=== PATIENT | male | born 1950 | race Caucasian/White ===

== ENCOUNTER 2017-03-10 12:28 | Day surgery (SDC) | payer MEDICARE, OTHER ==
[2017-03-03 10:23] LABS: HEMATOCRIT 36.7 % (37.9-51.0); HEMOGLOBIN 12.1 g/dL (13.5-17.0); HGB HCT DIFFERENCE -0.4; MEAN CORPUSCULAR HEMOGLOBIN 25.9 pg (27.0-33.4); MEAN CORPUSCULAR HGB CONC 32.9 g/dL (32.0-36.0); MEAN CORPUSCULAR VOLUME 79 fl (80-97); RED BLOOD COUNT 4.67 10^6/uL (4.35-5.55)
[2017-03-03 10:39] LABS: ANION GAP 12 (5-19); BLOOD UREA NITROGEN 14 mg/dL (7-20); CARBON DIOXIDE 24 mmol/L (22-30); CHLORIDE 104 mmol/L (98-107); CREATININE RESULT 0.59 mg/dL (0.52-1.25); GLUCOSE 114 mg/dL (75-110); POTASSIUM 5.1 mmol/L (3.6-5.0)
--- NOTE | 2017-03-04 13:28 | EKG REPORT ---
SEVERITY:- NORMAL ECG - SINUS RHYTHM : Confirmed by: Martin Oliveira MD 04-Mar-2017 13:27:11
[~2017-03-10 12:28] MED LIST: ACETAMINOPHEN 325 MG TABLET PO PRN; BUPIVACAINE HCL 0.25 % INJ/PF (2.5 MG/1 ML) 30 ML VIAL ONE; CEFAZOLIN 2 GM/D5W RTU 2 GM/50 ML RTUPB IV PRN; LACTATED RINGERS 1000 ML IV PRN
[2017-03-10 13:20] LABS: ABSOLUTE EOSINOPHILS # (AUTO) 0.1 10^3/uL (0.0-0.6); ABSOLUTE LYMPHOCYTES (AUTO) 1.3 10^3/uL (0.5-4.7); ABSOLUTE MONOCYTES (AUTO) 0.5 10^3/uL (0.1-1.4); ABSOLUTE NEUT (AUTO) 3.1 10^3/uL (1.7-8.2); BASOPHILS % (AUTO) 0.7 % (0-2); EOSINOPHILS % (AUTO) 1.7 % (0-6); HEMATOCRIT 26.8 % (37.9-51.0); HEMOGLOBIN 8.8 g/dL (13.5-17.0); HGB HCT DIFFERENCE -0.4; LYMPHOCYTES % (AUTO) 25.7 % (13-45); MEAN CORPUSCULAR HEMOGLOBIN 26.3 pg (27.0-33.4); MEAN CORPUSCULAR HGB CONC 32.8 g/dL (32.0-36.0); MEAN CORPUSCULAR VOLUME 80 fl (80-97); MONOCYTES % (AUTO) 10.8 % (3-13); RED BLOOD COUNT 3.35 10^6/uL (4.35-5.55); RED CELL DISTRIBUTION WIDTH 16.5 % (11.5-14.0); SEGMENTED NEUTROPHILS % (AUTO) 61.1 % (42-78)
[2017-03-10] MEDS ORDERED: RINGERS SOLUTION,LACTATED 1,000 ML IV ONE (14:30)
[2017-03-10] MEDS ORDERED: FENTANYL CITRATE INJ/PF 250 MCG/5 ML AMPULE ONE (14:32)
[2017-03-10] MEDS ORDERED: ACETAMINOPHEN 0 ML IV ONE (14:32)
[2017-03-10] MEDS ORDERED: DEXMEDETOMIDINE INJ 80 MCG/20 ML VIAL IV ONE (14:32)
[2017-03-10] MEDS ORDERED: MIDAZOLAM 2 MG/2 ML INJ ONE (14:32)
[2017-03-10] MEDS ORDERED: PROPOFOL INJ 200 MG/20 ML VIAL IV ONE (14:32)
[2017-03-10] MEDS ORDERED: MORPHINE SULFATE 10 MG/ML INJ ONE (15:01)
[2017-03-10] MEDS ORDERED: DEXTROSE 50%-WATER 25 GM/50 ML DISP.SYRIN IV PRN ×2 (15:23)
[2017-03-10] MEDS ORDERED: GLUCAGON,HUMAN RECOMB 1 MG INJ SUBCUT PRN (15:23)
[2017-03-10] MEDS ORDERED: DEXTROSE 40% GEL 15 GM TUBE PO PRN ×2 (15:23)
[2017-03-10 15:28] LABS: ALANINE AMINOTRANSFERASE 151 U/L (21-72); ALBUMIN 3.2 g/dL (3.5-5.0); ALKALINE PHOSPHATASE 82 U/L (38-126); ANION GAP 9 (5-19); ASPARTATE AMINO TRANSFERASE 163 U/L (17-59); BILIRUBIN,DIRECT 0.3 mg/dL (0.0-0.4); BILIRUBIN,TOTAL 0.9 mg/dL (0.2-1.3); BLOOD UREA NITROGEN 13 mg/dL (7-20); CALCIUM 8.2 mg/dL (8.4-10.2); CARBON DIOXIDE 22 mmol/L (22-30); CHLORIDE 106 mmol/L (98-107); GLUCOSE 94 mg/dL (75-110); MAGNESIUM 1.8 mg/dL (1.6-2.3); PHOSPHORUS 3.3 mg/dL (2.5-4.5); POTASSIUM 3.9 mmol/L (3.6-5.0); TOTAL PROTEIN 6.5 g/dL (6.3-8.2)
[2017-03-10] MEDS ORDERED: MEPERIDINE HCL/PF INJ 25 MG/1 ML DISP.SYRIN IV PRN (15:37)
[2017-03-10] MEDS ORDERED: DIPHENHYDRAMINE HCL 50 MG/ML VIAL IV PRN (15:37)
[2017-03-10] MEDS ORDERED: MORPHINE SULFATE 10 MG/ML INJ IV PRN (15:37)
[2017-03-10] MEDS ORDERED: FENTANYL CITRATE INJ/PF 100 MCG/2 ML AMPUL IV PRN ×3 (15:37)
[2017-03-10] MEDS ORDERED: OXYCODONE-ACETAMINOPHEN 5-325 MG TABLET PO PRN ×2 (15:37)
[2017-03-10] MEDS ORDERED: PROMETHAZINE HCL INJ 25 MG/1 ML VIAL IV PRN ×2 (15:37)
[2017-03-10 16:14] LABS: HEMATOCRIT 24.7 % (37.9-51.0); HEMOGLOBIN 8.2 g/dL (13.5-17.0); HGB HCT DIFFERENCE -0.1; MEAN CORPUSCULAR HEMOGLOBIN 26.7 pg (27.0-33.4); MEAN CORPUSCULAR HGB CONC 33.4 g/dL (32.0-36.0); MEAN CORPUSCULAR VOLUME 80 fl (80-97); RED BLOOD COUNT 3.08 10^6/uL (4.35-5.55); RED CELL DISTRIBUTION WIDTH 16.3 % (11.5-14.0)
[2017-03-10 16:19] LABS: PARTIAL THROMBOPLASTIN TIME 30.9 SEC (23.5-35.8); PROTHROMBIN TIME 14.4 SEC (11.4-15.4)
[2017-03-10 16:35] LABS: WHITE BLOOD COUNT 2.8 10^3/uL (4.0-10.5)
[2017-03-10 16:36] LABS: ANION GAP 6 (5-19); BLOOD UREA NITROGEN 13 mg/dL (7-20); CALCIUM 8.5 mg/dL (8.4-10.2); CARBON DIOXIDE 24 mmol/L (22-30); CHLORIDE 107 mmol/L (98-107); CREATININE RESULT 0.59 mg/dL (0.52-1.25); GLUCOSE 93 mg/dL (75-110); POTASSIUM 4.1 mmol/L (3.6-5.0); SODIUM 137.1 mmol/L (137-145)
[2017-03-10] MEDS: NORMAL SALINE 1000 ML 1,000 ML IV PRN (19:43)
--- NOTE | 2017-03-10 20:47 | RADIOLOGY REPORT (SQ) ---
EXAM DESCRIPTION: CT ABD/PELVIS WITH IV ORAL COMPLETED DATE/TIME: 03/10/2017 8:13 pm REASON FOR STUDY: abdominal distension K43.9 VENTRAL HERNIA WITHOUT OBSTRUCTION OR GANGRENE K42.9 UMBILICAL HERNIA WITHOUT OBSTRUCTION OR GANGRENE Z79.899 OTHER [facility] (CURRENT) DRUG THERAPY COMPARISON: None. TECHNIQUE: CT scan of the abdomen and pelvis performed with intravenous and oral contrast using memo david scanning technique with dynamic intravenous contrast injection. Images reviewed with lung, soft t issue, and bone windows. Reconstructed coronal and sagittal MPR images reviewed. Delayed images for e valuation of the urinary system also acquired. All images stored on PACS. All CT scanners at this facility use dose modulation, iterative reconstruction, and/or weight based d osing when appropriate to reduce radiation dose to as low as reasonably achievable (ALARA). [facility]: Dose Right [facility]: CareDose [facility]: Dose Right [facility]: Teradose 4D [facility]: [employer] CONTRAST TYPE AND DOSE: 88 mL Isovue 370 RENAL FUNCTION: Creatinine 0.59 RADIATION DOSE: 32.02 mGy. LIMITATIONS: None. FINDINGS: LOWER CHEST: There is minimal airspace consolidation in the lung bases most consistent wit h atelectatic changes. Small hiatal hernia is identified. LIVER: Normal size. No masses or dilated ducts. Perihepatic ascitic fluid is identified. SPLEEN: Normal size. No focal lesions. Perisplenic ascitic fluid is identified. PANCREAS: No masses. No significant calcifications. No adjacent inflammation or peripancreatic fluid collections. Pancreatic duct not dilated. GALLBLADDER: No identified stones by CT criteria. No inflammatory changes to suggest cholecystitis. ADRENAL GLANDS: No significant masses or asymmetry. RIGHT KIDNEY AND URETER: No solid masses. No significant calcifications. No hydronephrosis or hyd roureter. LEFT KIDNEY AND URETER: No solid masses. No significant calcifications. Mild hydronephrotic molina es are identified. AORTA AND VESSELS: No aneurysm. No dissection. Renal arteries, SMA, celiac without stenosis. RETROPERITONEUM: No retroperitoneal adenopathy, hemorrhage or masses. BOWEL AND PERITONEAL CAVITY: No obstruction. No visualized masses. No inflammatory changes or thicken ing of bowel wall. Scattered pockets of ascitic fluid are identified throughout the abdomen and pelv is. APPENDIX: Not identified. PELVIS: No significant masses. Normal bladder. Pelvic ascitic fluid is identified. ABDOMINAL WALL: No masses. Small umbilical hernia is identified containing bowel without obstruction and a small amount of ascitic fluid. BONES: No significant or acute findings. OTHER: No other significant finding. IMPRESSION: Intra-abdominal and pelvic ascitic fluid as noted above. Small umbilical hernia is iden tified containing a small amount of bowel without obstruction and ascitic fluid. Mild hydronephrosis of the left kidney. Other findings as noted above TECHNICAL DOCUMENTATION: JOB ID: [id number] Quality ID # [id number]: Final reports with documentation of one or more dose reduction techniques (e.g., Au tomated exposure control, adjustment of the mA and/or kV according to patient size, use of iterative reconstruction technique) 2010 [employer]- All Rights Reserved
[2017-03-10] MEDS: LANSOPRAZOLE 30 MG TAB.RAP.DR PO SCH (21:45)
--- NOTE | 2017-03-10 21:51 | PDOC H&P ---
History of Present Illness Admission Date/PCP: DEDRICK JARAMILLO MD Patient complains of: Abdominal distention History of Present Illness: SLOANE SIMON III is a 67 year old male who was scheduled for laparoscopic umbilical and supraumbilical ventral hernia repair with mesh today for long- standing hernias. However he was noted with severe anemia of unclear etiology along with progressively worsening abdominal distention in the past several weeks. Patient denies any change of his hernias with no pain and no nausea and vomiting. He has been experiencing normal bowel movements with no signs or symptoms of gastrointestinal bleed other than isolated episode of dark stools last week. He has a family history of colon cancer with his father developing colon cancer in his 50s. Unfortunately the patient himself has never had a screening colonoscopy. He suffers from frequent episodes of heartburn that is controlled with omeprazole. He denies any dysphagia. he denies any chronic cough. He denies any weight loss. He denies any abdominal pain. Past Medical History Cardiac Medical History: Denies: Coronary Artery Disease, Myocardial Infarction, Hypertension Pulmonary Medical History: Denies: Asthma, Bronchitis, Chronic Obstructive Pulmonary Disease (COPD), Pneumonia Neurological Medical History: Denies: Seizures GI Medical History: Reports: Gastroesophageal Reflux Disease Musculoskeltal Medical History: Denies: Arthritis Hematology: Denies: Anemia Past Surgical History Past Surgical History: Reports: Other - Arm orthopedic surgery in the remote past. Social History Smoking Status: Never Smoker Drugs: None Family History Family History: Malignancy - Father with colon cancer in his 50s. Parental Family History Reviewed: Yes Children Family History Reviewed: No Sibling(s) Family History Reviewed.: Yes Medication/Allergy Home Medications: Multivitamin [Multivitamins] 1 tab PO DAILY 03/03/17 [place]-3/Dha/Epa/Fish Oil [Fish Oil 1,000 mg Softgel] 1 cap PO DAILY 03/03/17 Omeprazole 1 cap PO DAILY 03/03/17 Allergies/Adverse Reactions: No Known Allergies Allergy (Unverified 03/03/17 09:52) Physical Exam Vital Signs: Temp Pulse Resp BP Pulse Ox 98.9 F 56 L 18 112/76 99 03/10/17 17:55 03/10/17 17:55 03/10/17 17:55 03/10/17 17:55 03/10/17 17:55 Intake & Output 03/09/17 03/10/17 03/11/17 06:59 06:59 06:59 Intake Total 900 Balance 900 Weight 81 kg General appearance: PRESENT: no acute distress, cooperative Neck exam: PRESENT: other - No abnormal masses, no lymphadenopathy, nontender to palpation. Respiratory exam: PRESENT: clear to auscultation branden Cardiovascular exam: PRESENT: RRR GI/Abdominal exam: PRESENT: other - Distended but very soft and nontender to palpation with no palpable hepatosplenomegaly. Moderate sized umbilical hernia that is easily reducible as well as supraumbilical hernia that is easily reducible. Extremities exam: PRESENT: other - No swelling no tenderness. Neurological exam: PRESENT: alert, altered, awake, oriented to person, oriented to place, oriented to time, oriented to situation Psychiatric exam: PRESENT: appropriate affect Skin exam: PRESENT: normal color Results Laboratory Results: 03/10/17 16:05 03/10/17 16:05 03/10/17 03/10/17 03/10/17 13:09 13:09 14:52 WBC 5.0 RBC 3.35 L Hgb 8.8 L Hct 26.8 L MCV 80 MCH 26.3 L MCHC 32.8 RDW 16.5 H Plt Count 110 L Seg Neutrophils % 61.1 Lymphocytes % 25.7 Monocytes % 10.8 Eosinophils % 1.7 Basophils % 0.7 Absolute Neutrophils 3.1 Absolute Lymphocytes 1.3 Absolute Monocytes 0.5 Absolute Eosinophils 0.1 Absolute Basophils 0.0 Sodium 137.0 Potassium 3.9 3.9 Chloride 106 Carbon Dioxide 22 Anion Gap 9 BUN 13 Creatinine 0.60 Est GFR ( Amer) > 60 Est GFR (Non-Af Amer) > 60 Glucose 94 Calcium 8.2 L Phosphorus 3.3 Magnesium 1.8 Total Bilirubin 0.9 AST 163 H ALT 151 H Alkaline Phosphatase 82 Total Protein 6.5 Albumin 3.2 L Blood Type Antibody Screen 03/10/17 03/10/17 03/10/17 14:52 16:05 16:05 WBC 2.8 L D RBC 3.08 L Hgb 8.2 L Hct 24.7 L MCV 80 MCH 26.7 L MCHC 33.4 RDW 16.3 H Plt Count 82 L Seg Neutrophils % Lymphocytes % Monocytes % Eosinophils % Basophils % Absolute Neutrophils Absolute Lymphocytes Absolute Monocytes Absolute Eosinophils Absolute Basophils Sodium 137.1 Potassium 4.1 Chloride 107 Carbon Dioxide 24 Anion Gap 6 BUN 13 Creatinine 0.59 Est GFR ( Amer) > 60 Est GFR (Non-Af Amer) > 60 Glucose 93 Calcium 8.5 Phosphorus Magnesium Total Bilirubin AST ALT Alkaline Phosphatase Total Protein Albumin Blood Type B POSITIVE Antibody Screen NEGATIVE Impressions: Abdomen/Pelvis CT 03/10/17 00:00 IMPRESSION: Intra-abdominal and pelvic ascitic fluid as noted above. Small umbilical hernia is identified containing a small amount of bowel without obstruction and ascitic fluid. Mild hydronephrosis of the left kidney. Other findings as noted above Assessment & Plan - Diagnosis (1) Pancytopenia Is this a current diagnosis for this admission?: YesPlan: Of unclear etiology. Along with marked abdominal distention without evidence of intestinal obstruction. Will admit for evaluation. Highly suspicious for intra-abdominal malignancy. CT scan demonstrates ascites but no focus of malignancy. Will plan review of the CT scan with radiology in the morning. Will obtain hematology oncology consultation. Will do a bowel prep tomorrow with plans for EGD and colonoscopy the following day. His laparoscopic ventral hernia repair is canceled for now. Pending malignancy workup.
[2017-03-11] MEDS: NORMAL SALINE 1000 ML 1,000 ML IV PRN (01:16)
[2017-03-11] MEDS: LANSOPRAZOLE 30 MG TAB.RAP.DR PO SCH ×2 (05:31→18:10)
[2017-03-11] MEDS ORDERED: NORMAL SALINE 1000 ML 1,000 ML IV PRN (07:41)
[2017-03-11] MEDS ORDERED: PEG 3350/NA SULF,BICARB,CL/KCL 4000 ML PO ONE (09:00)
[2017-03-11] MEDS: OMEGA-3 ACID ETHYL ESTERS 1 GM CAPSULE PO SCH (09:39)
[2017-03-11 09:51] LABS: LDH 620 U/L (313-618)
[2017-03-11 10:24] LABS: CARCINOEMBRYONIC ANTIGEN 3.9 ng/mL (<3.0)
--- NOTE | 2017-03-11 11:27 | PDOC PROGRESS REPORT ---
Subjective Progress Note for:: 03/11/17 Subjective:: Feels well. No complaints. No shortness of breath. Has been having normal bowel movement with no blood per rectum no dark stools. Physical Exam Vital Signs: Temp Pulse Resp BP Pulse Ox 99.0 F 93 13 117/67 94 03/11/17 08:00 03/11/17 08:00 03/11/17 08:00 03/11/17 08:00 03/11/17 08:00 Intake & Output 03/10/17 03/11/17 03/12/17 06:59 06:59 06:59 Intake Total 900 Balance 900 Weight 87.8 kg General appearance: PRESENT: no acute distress, cooperative Respiratory exam: PRESENT: clear to auscultation branden Cardiovascular exam: PRESENT: RRR GI/Abdominal exam: PRESENT: other - Soft, distended. Nontender to palpation. Ventral hernias are easily reducible. Results Laboratory Results: 03/10/17 16:05 03/10/17 16:05 03/10/17 03/10/17 03/10/17 13:09 13:09 14:52 WBC 5.0 RBC 3.35 L Hgb 8.8 L Hct 26.8 L MCV 80 MCH 26.3 L MCHC 32.8 RDW 16.5 H Plt Count 110 L Seg Neutrophils % 61.1 Lymphocytes % 25.7 Monocytes % 10.8 Eosinophils % 1.7 Basophils % 0.7 Absolute Neutrophils 3.1 Absolute Lymphocytes 1.3 Absolute Monocytes 0.5 Absolute Eosinophils 0.1 Absolute Basophils 0.0 Retic Count (auto) Absolute Retic Sodium 137.0 Potassium 3.9 3.9 Chloride 106 Carbon Dioxide 22 Anion Gap 9 BUN 13 Creatinine 0.60 Est GFR ( Amer) > 60 Est GFR (Non-Af Amer) > 60 Glucose 94 Calcium 8.2 L Phosphorus 3.3 Magnesium 1.8 Total Bilirubin 0.9 AST 163 H ALT 151 H Alkaline Phosphatase 82 Total Protein 6.5 Albumin 3.2 L Blood Type Antibody Screen 03/10/17 03/10/17 03/10/17 14:52 16:05 16:05 WBC 2.8 L D RBC 3.08 L Hgb 8.2 L Hct 24.7 L MCV 80 MCH 26.7 L MCHC 33.4 RDW 16.3 H Plt Count 82 L Seg Neutrophils % Lymphocytes % Monocytes % Eosinophils % Basophils % Absolute Neutrophils Absolute Lymphocytes Absolute Monocytes Absolute Eosinophils Absolute Basophils Retic Count (auto) Absolute Retic Sodium 137.1 Potassium 4.1 Chloride 107 Carbon Dioxide 24 Anion Gap 6 BUN 13 Creatinine 0.59 Est GFR ( Amer) > 60 Est GFR (Non-Af Amer) > 60 Glucose 93 Calcium 8.5 Phosphorus Magnesium Total Bilirubin AST ALT Alkaline Phosphatase Total Protein Albumin Blood Type B POSITIVE Antibody Screen NEGATIVE 03/11/17 09:27 WBC RBC Hgb Hct MCV MCH MCHC RDW Plt Count Seg Neutrophils % Lymphocytes % Monocytes % Eosinophils % Basophils % Absolute Neutrophils Absolute Lymphocytes Absolute Monocytes Absolute Eosinophils Absolute Basophils Retic Count (auto) 3.13 H Absolute Retic 0.100 Sodium Potassium Chloride Carbon Dioxide Anion Gap BUN Creatinine Est GFR ( Amer) Est GFR (Non-Af Amer) Glucose Calcium Phosphorus Magnesium Total Bilirubin AST ALT Alkaline Phosphatase Total Protein Albumin Blood Type Antibody Screen Impressions: Abdomen/Pelvis CT 03/10/17 00:00 IMPRESSION: Intra-abdominal and pelvic ascitic fluid as noted above. Small umbilical hernia is identified containing a small amount of bowel without obstruction and ascitic fluid. Mild hydronephrosis of the left kidney. Other findings as noted above Assessment & Plan - Diagnosis (1) Pancytopenia Is this a current diagnosis for this admission?: YesPlan: Of unclear etiology. Cirrhosis is in the differential diagnosis. Greatly appreciate hematology input. No evidence of ongoing blood loss. Pending paracentesis today. We will do bowel prep with plans for EGD and colonoscopy tomorrow. Patient understands risks and benefits of the procedure including risk of bleeding and intestinal injury.
--- NOTE | 2017-03-11 16:48 | RADIOLOGY REPORT (SQ) ---
EXAM DESCRIPTION: U/S ABD PARACENTESIS COMPLETED DATE/TIME: 03/11/2017 4:21 pm REASON FOR STUDY: ASCITES COMPARISON CT abdomen pelvis 03/10/2017 LIMITATIONS: None. PROCEDURE: After obtaining informed consent, the patient was brought to the ultrasound suite. The p rocedure was performed with the patient on a gurney. Ultrasound was used to identify a prominent poc ket of ascites in the left lower quadrant. An appropriate access site was selected. The patient was prepped and draped in usual sterile fashion. The access site was anesthetized with 4.5 mL 1% lidoc agueda. A 5 [place] Accustick needle was advanced into the fluid under direct ultrasound visualization. After aspiration of fluid the needle, the catheter was advanced off the needle into the fluid. A t otal of 500 mL of clear yellow fluid was removed. The patient tolerated the procedure well left the d epartment in satisfactory condition. Fluid was sent for testing as per Dr. Braga IMPRESSION: Successful ultrasound-guided diagnostic and therapeutic paracentesis COMMENT: Patient medication list reviewed: Yes- Quality ID# [id number]:Eligible professional attests to doc umenting in the medical record they obtained, updated, or reviewed the patient's current medications. Quality ID #76: The patient was prepped and draped using maximum sterile barrier technique including cap, mask, sterile gown, sterile gloves, a large sterile sheet, hand hygiene, and 2% Chlorhexidine fo r cutaneous antisepsis. When ultrasound is used, sterile ultrasound techniques are followed requiring sterile gel and sterile probes. Quality ID #145: Final reports for procedures using fluoroscopy that document radiation exposure stephan meenakshi, or exposure time and number of fluorographic images (if radiation exposure indices are not avail able) TECHNICAL DOCUMENTATION: JOB ID: [id number] [employer]- All Rights Reserved
--- NOTE | 2017-03-11 16:55 | PDOC CONSULTATION ---
Consultation Consult Date: 03/11/17 Attending physician:: HARRY BOTELLO Consult reason:: Splenomegaly, ascitis History of Present Illness Admission Date/PCP: DEDRICK JARAMILLO MD Patient complains of: Increasing abd girth, abd pain, weakness History of Present Illness: 67-year-old male who presented with a two-month history of increasing abdominal girth, he feels like he has had distention for several years, but over the last 2 months much worse, because of the distention he was noticing a ventral hernia , he was scheduled for an elective hernia repair but when they did the CBC, he was found to actually have pancytopenia with hemoglobin in the 8 range and platelets in the 60-70 range. Previously the hemoglobin was 12 done just 1 week ago the platelet count however 1 week ago was 75. Prior to this he had not really seen any physicians. He was admitted for further workup, CT of the abdomen pelvis indicated diffuse ascites and splenomegaly. There were no active lesions noted on the imaging. In further discussion with patient, he has a very strong alcohol history, until of about 5-10 years ago he had about a 20-30 year history of drinking alcohol every day, he would drink anywhere from 7 -10 beers per day. On the weekends he would drink a lot more than that. Past Medical History Cardiac Medical History: Denies: Coronary Artery Disease, Myocardial Infarction, Hypertension Pulmonary Medical History: Denies: Asthma, Bronchitis, Chronic Obstructive Pulmonary Disease (COPD), Pneumonia Neurological Medical History: Denies: Seizures GI Medical History: Reports: Gastroesophageal Reflux Disease Musculoskeltal Medical History: Denies: Arthritis Hematology: Denies: Anemia Past Surgical History Past Surgical History: Reports: Other - Arm orthopedic surgery in the remote past. Social History Smoking Status: Never Smoker Frequency of Alcohol Use: Heavy - but quit, was drinking 7-10 beers/day Drugs: None Family History Family History: Malignancy - Father with colon cancer in his 50s. Parental Family History Reviewed: Yes Children Family History Reviewed: Yes Sibling(s) Family History Reviewed.: Yes Medication/Allergy Home Medications: Multivitamin [Multivitamins] 1 tab PO DAILY 03/03/17 [place]-3/Dha/Epa/Fish Oil [Fish Oil 1,000 mg Softgel] 1 cap PO DAILY 03/03/17 Omeprazole 1 cap PO DAILY 03/03/17 Allergies/Adverse Reactions: No Known Allergies Allergy (Unverified 03/03/17 09:52) Review of Systems Constitutional: ABSENT: chills, fever(s), headache(s), weight gain, weight loss Eyes: ABSENT: visual disturbances Ears: ABSENT: hearing changes Cardiovascular: ABSENT: chest pain, dyspnea on exertion, edema, orthropnea, palpitations Respiratory: ABSENT: cough, hemoptysis Gastrointestinal: ABSENT: abdominal pain, constipation, diarrhea, hematemesis, hematochezia, nausea, vomiting Genitourinary: ABSENT: dysuria, hematuria Musculoskeletal: ABSENT: joint swelling Integumentary: ABSENT: rash, wounds Neurological: ABSENT: abnormal gait, abnormal speech, confusion, dizziness, focal weakness, syncope Psychiatric: ABSENT: anxiety, depression, homidical ideation, suicidal ideation Endocrine: ABSENT: cold intolerance, heat intolerance, polydipsia, polyuria Hematologic/Lymphatic: ABSENT: easy bleeding, easy bruising Physical Exam Vital Signs: Temp Pulse Resp BP Pulse Ox 99.0 F 93 13 117/67 94 03/11/17 08:00 03/11/17 08:00 03/11/17 08:00 03/11/17 08:00 03/11/17 08:00 Intake & Output 03/10/17 03/11/17 03/12/17 06:59 06:59 06:59 Intake Total 900 Balance 900 Weight 87.8 kg Results Laboratory Results: 03/10/17 16:05 03/10/17 16:05 03/11/17 03/11/17 09:27 09:27 Retic Count (auto) 3.13 H Absolute Retic 0.100 Iron 11.5 L TIBC 441 % Saturation 3 Ferritin 14.30 L Impressions: Abdomen/Pelvis CT 03/10/17 00:00 IMPRESSION: Intra-abdominal and pelvic ascitic fluid as noted above. Small umbilical hernia is identified containing a small amount of bowel without obstruction and ascitic fluid. Mild hydronephrosis of the left kidney. Other findings as noted above Assessment & Plan - Diagnosis (1) Pancytopenia Is this a current diagnosis for this admission?: YesPlan: Today we did a full workup, I did iron studies, B12 level, I also ordered ultrasound-guided paracentesis, this should all help delineate whether or not he has evidence consistent with cirrhosis. This would be the most likely cause of his pancytopenia. We will see the results of this and then follow-up - Time Time Spent: Greater than 70 Minutes Critical Time spent with patient: 35 or more minutes
[2017-03-11 16:56] LABS: FLUID APPEARANCE CLEAR; FLUID RBC AVERAGE 56.5; FLUID RBC DILUENT USED NONE USED; FLUID RBC DILUTION FACTOR 1; FLUID RBC SIDE 1 57; FLUID RBC SIDE 2 56; FLUID TYPE PERITONEAL; TOTAL RBC SQUARES COUNTED FLD 225
[2017-03-12] MEDS: LANSOPRAZOLE 30 MG TAB.RAP.DR PO SCH ×2 (05:21→18:10)
--- NOTE | 2017-03-12 08:08 | PDOC PROGRESS REPORT ---
Subjective Progress Note for:: 03/12/17 Subjective:: Pt doing well this am, prepped for scopes yesterday, had paracentesis w/ 500cc out. Physical Exam Vital Signs: Temp Pulse Resp BP Pulse Ox 99.4 F 83 19 108/66 95 03/12/17 07:32 03/12/17 07:32 03/12/17 07:32 03/12/17 07:32 03/12/17 07:32 Intake & Output 03/11/17 03/12/17 03/13/17 06:59 06:59 06:59 Intake Total 900 900 Balance 900 900 Weight 87.8 kg General appearance: PRESENT: no acute distress, well-developed, well-nourished Head exam: PRESENT: atraumatic, normocephalic Eye exam: PRESENT: conjunctiva pink, EOMI, PERRLA. ABSENT: scleral icterus Ear exam: PRESENT: normal external ear exam Mouth exam: PRESENT: moist, tongue midline Neck exam: ABSENT: carotid bruit, JVD, lymphadenopathy, thyromegaly Respiratory exam: PRESENT: clear to auscultation branden. ABSENT: rales, rhonchi, wheezes Cardiovascular exam: PRESENT: RRR. ABSENT: diastolic murmur, rubs, systolic murmur Pulses: PRESENT: normal dorsalis pedis pul Vascular exam: PRESENT: normal capillary refill GI/Abdominal exam: PRESENT: normal bowel sounds, soft. ABSENT: distended, guarding, mass, organolmegaly, rebound, tenderness Rectal exam: PRESENT: deferred Extremities exam: PRESENT: full ROM. ABSENT: calf tenderness, clubbing, pedal edema Neurological exam: PRESENT: alert, awake, oriented to person, oriented to place , oriented to time, oriented to situation, CN II-XII grossly intact. ABSENT: motor sensory deficit Psychiatric exam: PRESENT: appropriate affect, normal mood. ABSENT: homicidal ideation, suicidal ideation Skin exam: PRESENT: dry, intact, warm. ABSENT: cyanosis, rash Results Laboratory Results: 03/10/17 16:05 03/10/17 16:05 03/11/17 03/11/17 03/11/17 09:27 09:27 15:37 Retic Count (auto) 3.13 H Absolute Retic 0.100 Iron 11.5 L TIBC 441 % Saturation 3 Ferritin 14.30 L Fluid Type PERITONEAL Fluid Source PARACENTESIS Fluid Color STRAW Fluid Appearance CLEAR Fluid Viscosity LIQUID Fluid WBC 97 Fluid RBC 62 Impressions: Abdomen/Pelvis CT 03/10/17 00:00 IMPRESSION: Intra-abdominal and pelvic ascitic fluid as noted above. Small umbilical hernia is identified containing a small amount of bowel without obstruction and ascitic fluid. Mild hydronephrosis of the left kidney. Other findings as noted above Paracentesis Ultrasound 03/11/17 08:33 IMPRESSION: Successful ultrasound-guided diagnostic and therapeutic paracentesis Assessment & Plan - Diagnosis (1) Pancytopenia Is this a current diagnosis for this admission?: YesPlan: Reviewed initial results of paracentesis, cell ct w/ some monocytes, cytology planned to evaluate, f/u results of scopes. But still most likely cause seems cirrhosis, hb is 8 range likely c/w iron def, plan IV iron today. Today spent 30 min in discussion w/ pt about w/u in process. - Time Time Spent with patient: 25-34 minutes Critical Time spent with patient: 25-34 minutes
[2017-03-12] MEDS ORDERED: FERUMOXYTOL (NON-ESRD) 510 MG/NS 100 ML IV PRN ×2 (08:30)
[2017-03-12 08:54] LABS: ABSOLUTE EOSINOPHILS # (AUTO) 0.1 10^3/uL (0.0-0.6); ABSOLUTE LYMPHOCYTES (AUTO) 0.9 10^3/uL (0.5-4.7); ABSOLUTE MONOCYTES (AUTO) 0.3 10^3/uL (0.1-1.4); ABSOLUTE NEUT (AUTO) 1.6 10^3/uL (1.7-8.2); BASOPHILS % (AUTO) 0.9 % (0-2); EOSINOPHILS % (AUTO) 3.4 % (0-6); HEMATOCRIT 24.2 % (37.9-51.0); HGB HCT DIFFERENCE -0.2; LYMPHOCYTES % (AUTO) 31.5 % (13-45); MEAN CORPUSCULAR HEMOGLOBIN 26.4 pg (27.0-33.4); MEAN CORPUSCULAR HGB CONC 33.1 g/dL (32.0-36.0); MEAN CORPUSCULAR VOLUME 80 fl (80-97); MONOCYTES % (AUTO) 9.6 % (3-13); RED BLOOD COUNT 3.03 10^6/uL (4.35-5.55); RED CELL DISTRIBUTION WIDTH 16.6 % (11.5-14.0); SEGMENTED NEUTROPHILS % (AUTO) 54.6 % (42-78); WHITE BLOOD COUNT 2.9 10^3/uL (4.0-10.5)
[2017-03-12] MEDS ORDERED: ONDANSETRON HCL INJ/PF 4 MG/2 ML SDV ONE (09:57)
[2017-03-12] MEDS ORDERED: NALOXONE HCL INJ/PF 0.4 MG/1 ML SDV ONE (09:58)
[2017-03-12] MEDS ORDERED: FLUMAZENIL INJ 0.5 MG/5 ML VIAL IV ONE (09:58)
[2017-03-12] MEDS ORDERED: GLYCOPYRROLATE INJ 0.4 MG/2 ML VIAL ONE (09:58)
[2017-03-12] MEDS ORDERED: FENTANYL CITRATE INJ/PF 100 MCG/2 ML AMPUL ONE (09:58)
[2017-03-12] MEDS ORDERED: EPINEPHRINE INJ 1 MG/10 ML DISP.SYRIN ONE (09:59)
[2017-03-12] MEDS ORDERED: GLUCAGON,HUMAN RECOMB 1 MG INJ ONE (09:59)
[2017-03-12] MEDS: MIDAZOLAM 2 MG/2 ML INJ ONE ×4 (10:27→10:48)
--- NOTE | 2017-03-12 11:41 | Operative Report ---
Operative Report DATE OF SURGERY: 03/12/17 PREOPERATIVE DIAGNOSIS: Blood loss associated anemia, gastroesophageal reflux disease, family history of colon cancer. POSTOPERATIVE DIAGNOSIS: Esophageal varices. Fundic gland polyps. Internal hemorrhoids. OPERATION: Esophagogastroduodenoscopy with snare polypectomy of gastric polyp. Colonoscopy. ANESTHESIA: Moderate Sedation TISSUE REMOVED OR ALTERED: Fundic gland polyp. COMPLICATIONS: None ESTIMATED BLOOD LOSS: Minimal INTRAOPERATIVE FINDINGS: Very prominent mid to distal esophageal varices. Fundic gland polyps. No evidence of peptic ulcer disease. Markedly redundant colon. Internal hemorrhoids. PROCEDURE: Informed consent was obtained. Patient was brought to the endoscopy suite. IV sedation with Versed and fentanyl was administered. Endoscope was passed via the patient's mouth into the second portion of the duodenum. The duodenum appeared to be normal. The stomach had scattered fundic gland polyps. 1 of the more prominent polyp was snare polypectomy. The specimen was retrieved. Hemostasis appeared to be good. No ulcers and no suspicious masses were seen other than the fundic gland polyps. Patient had a small hiatal hernia. There were very prominent esophageal varices from the mid to distal esophagus. No stigmata recent bleed however. Patient was repositioned. Digital rectal exam revealed no palpable perianal masses. Endoscope was passed via the patient's anus it was prepped to the cecum. Patient's colon was markedly redundant making the procedure very difficult. However adequate visualization was obtained. The cecum, right colon , transverse colon, descending colon, sigmoid colon, and the rectum were all unremarkable with no masses no diverticuli. There were prominent internal hemorrhoids but no stigmata of recent bleed. Patient tolerated procedure well with no apparent complications and was taken to the recovery in stable condition.
--- NOTE | 2017-03-12 11:50 | PDOC PROGRESS REPORT ---
Subjective Progress Note for:: 03/12/17 Subjective:: Feels well. No complaints. Tolerated bowel prep well. No blood per rectum. Physical Exam Vital Signs: Temp Pulse Resp BP Pulse Ox 99.4 F 73 20 99/57 L 95 03/12/17 07:32 03/12/17 11:25 03/12/17 11:25 03/12/17 11:25 03/12/17 11:25 Intake & Output 03/11/17 03/12/17 03/13/17 06:59 06:59 06:59 Intake Total 900 900 550 Balance 900 900 550 Weight 87.8 kg General appearance: PRESENT: no acute distress, cooperative Respiratory exam: PRESENT: clear to auscultation branden Cardiovascular exam: PRESENT: RRR GI/Abdominal exam: PRESENT: other - Soft, distended but nontender, easily reducible ventral hernias. Results Laboratory Results: 03/12/17 08:23 03/10/17 16:05 03/11/17 03/11/17 03/12/17 09:27 15:37 08:23 WBC 2.9 L RBC 3.03 L Hgb 8.0 L Hct 24.2 L MCV 80 MCH 26.4 L MCHC 33.1 RDW 16.6 H Plt Count 95 L Seg Neutrophils % 54.6 Lymphocytes % 31.5 Monocytes % 9.6 Eosinophils % 3.4 Basophils % 0.9 Absolute Neutrophils 1.6 L Absolute Lymphocytes 0.9 Absolute Monocytes 0.3 Absolute Eosinophils 0.1 Absolute Basophils 0.0 Iron 11.5 L TIBC 441 % Saturation 3 Ferritin 14.30 L Fluid Type PERITONEAL Fluid Source PARACENTESIS Fluid Color STRAW Fluid Appearance CLEAR Fluid Viscosity LIQUID Fluid WBC 97 Fluid RBC 62 Impressions: Abdomen/Pelvis CT 03/10/17 00:00 IMPRESSION: Intra-abdominal and pelvic ascitic fluid as noted above. Small umbilical hernia is identified containing a small amount of bowel without obstruction and ascitic fluid. Mild hydronephrosis of the left kidney. Other findings as noted above Paracentesis Ultrasound 03/11/17 08:33 IMPRESSION: Successful ultrasound-guided diagnostic and therapeutic paracentesis Assessment & Plan - Diagnosis (1) Pancytopenia Is this a current diagnosis for this admission?: YesPlan: Patient doing well with no evidence of recurrent gastrointestinal bleed. Underwent EGD and colonoscopy. Colonoscopy demonstrated hemorrhoids and markedly redundant colon but no evidence of colon cancer. EGD demonstrated very prominent esophageal varices but no active bleeding. Patient had the incidental fundic gland polyps 1 of them which was snare polypectomied. No evidence of peptic ulcer disease was found. Will arrange outpt consultation with gastroenterology for management of the apparent cirrhosis with portal hypertension. Most likely source of his anemia is esophageal variceal bleed 1- 2 weeks ago. No GI consult available today. Will start propranolol today, make sure he does not have an presyncope on propanolol prior to discharge.
[2017-03-12] MEDS: OMEGA-3 ACID ETHYL ESTERS 1 GM CAPSULE PO SCH (12:24)
[2017-03-12] MEDS ORDERED: PROPRANOLOL HCL 10 MG TABLET PO ONE (13:00)
[2017-03-12] MEDS: PROPRANOLOL HCL 10 MG TABLET PO SCH (22:18)
[2017-03-13] MEDS: LANSOPRAZOLE 30 MG TAB.RAP.DR PO SCH (05:38)
[2017-03-13 06:43] LABS: ABSOLUTE EOSINOPHILS # (AUTO) 0.1 10^3/uL (0.0-0.6); ABSOLUTE LYMPHOCYTES (AUTO) 1.1 10^3/uL (0.5-4.7); ABSOLUTE MONOCYTES (AUTO) 0.3 10^3/uL (0.1-1.4); ABSOLUTE NEUT (AUTO) 1.5 10^3/uL (1.7-8.2); BASOPHILS % (AUTO) 0.8 % (0-2); HEMATOCRIT 24.2 % (37.9-51.0); HGB HCT DIFFERENCE -0.2; LYMPHOCYTES % (AUTO) 36.1 % (13-45); MEAN CORPUSCULAR HEMOGLOBIN 26.4 pg (27.0-33.4); MEAN CORPUSCULAR HGB CONC 33.1 g/dL (32.0-36.0); MEAN CORPUSCULAR VOLUME 80 fl (80-97); RED BLOOD COUNT 3.03 10^6/uL (4.35-5.55); RED CELL DISTRIBUTION WIDTH 17.1 % (11.5-14.0); SEGMENTED NEUTROPHILS % (AUTO) 49.1 % (42-78); WHITE BLOOD COUNT 3.1 10^3/uL (4.0-10.5)
--- NOTE | 2017-03-13 08:42 | PDOC PROGRESS REPORT ---
Subjective Progress Note for:: 03/13/17 Subjective:: feels well. no complaints, no s/s/ of gi bleed. did not take beta carl yesterday because he didnt know what it was although I cleared told him and his yesterday. He is agreeable now. No GI available. will consult hospitalist about starting diuretic therapy, start iron and colace. Physical Exam Vital Signs: Temp Pulse Resp BP Pulse Ox 98.1 F 82 16 108/59 L 93 03/13/17 08:09 03/13/17 08:09 03/13/17 08:09 03/13/17 08:09 03/13/17 08:09 Intake & Output 03/12/17 03/13/17 03/14/17 06:59 06:59 06:59 Intake Total 900 2187 Balance 900 2187 Weight 88.2 kg Results Laboratory Results: 03/13/17 06:07 03/10/17 16:05 03/12/17 03/13/17 08:23 06:07 WBC 2.9 L 3.1 L RBC 3.03 L 3.03 L Hgb 8.0 L 8.0 L Hct 24.2 L 24.2 L MCV 80 80 MCH 26.4 L 26.4 L MCHC 33.1 33.1 RDW 16.6 H 17.1 H Plt Count 95 L 99 L Seg Neutrophils % 54.6 49.1 Lymphocytes % 31.5 36.1 Monocytes % 9.6 10.0 Eosinophils % 3.4 4.0 Basophils % 0.9 0.8 Absolute Neutrophils 1.6 L 1.5 L Absolute Lymphocytes 0.9 1.1 Absolute Monocytes 0.3 0.3 Absolute Eosinophils 0.1 0.1 Absolute Basophils 0.0 0.0 Impressions: Abdomen/Pelvis CT 03/10/17 00:00 IMPRESSION: Intra-abdominal and pelvic ascitic fluid as noted above. Small umbilical hernia is identified containing a small amount of bowel without obstruction and ascitic fluid. Mild hydronephrosis of the left kidney. Other findings as noted above Paracentesis Ultrasound 03/11/17 08:33 IMPRESSION: Successful ultrasound-guided diagnostic and therapeutic paracentesis Assessment & Plan - Diagnosis (1) Pancytopenia Is this a current diagnosis for this admission?: Yes
--- NOTE | 2017-03-13 08:48 | PDOC PROGRESS REPORT ---
Subjective Progress Note for:: 03/13/17 Subjective:: Patient doing better today Physical Exam Vital Signs: Temp Pulse Resp BP Pulse Ox 98.1 F 82 16 108/59 L 93 03/13/17 08:09 03/13/17 08:09 03/13/17 08:09 03/13/17 08:09 03/13/17 08:09 Intake & Output 03/12/17 03/13/17 03/14/17 06:59 06:59 06:59 Intake Total 900 2187 Balance 900 2187 Weight 88.2 kg General appearance: PRESENT: no acute distress, well-developed, well-nourished Head exam: PRESENT: atraumatic, normocephalic Eye exam: PRESENT: conjunctiva pink, EOMI, PERRLA. ABSENT: scleral icterus Ear exam: PRESENT: normal external ear exam Mouth exam: PRESENT: moist, tongue midline Neck exam: ABSENT: carotid bruit, JVD, lymphadenopathy, thyromegaly Respiratory exam: PRESENT: clear to auscultation branden. ABSENT: rales, rhonchi, wheezes Cardiovascular exam: PRESENT: RRR. ABSENT: diastolic murmur, rubs, systolic murmur Pulses: PRESENT: normal dorsalis pedis pul Vascular exam: PRESENT: normal capillary refill GI/Abdominal exam: PRESENT: normal bowel sounds, soft. ABSENT: distended, guarding, mass, organolmegaly, rebound, tenderness Rectal exam: PRESENT: deferred Extremities exam: PRESENT: full ROM. ABSENT: calf tenderness, clubbing, pedal edema Neurological exam: PRESENT: alert, awake, oriented to person, oriented to place , oriented to time, oriented to situation, CN II-XII grossly intact. ABSENT: motor sensory deficit Psychiatric exam: PRESENT: appropriate affect, normal mood. ABSENT: homicidal ideation, suicidal ideation Skin exam: PRESENT: dry, intact, warm. ABSENT: cyanosis, rash Results Laboratory Results: 03/13/17 06:07 03/10/17 16:05 03/12/17 03/13/17 08:23 06:07 WBC 2.9 L 3.1 L RBC 3.03 L 3.03 L Hgb 8.0 L 8.0 L Hct 24.2 L 24.2 L MCV 80 80 MCH 26.4 L 26.4 L MCHC 33.1 33.1 RDW 16.6 H 17.1 H Plt Count 95 L 99 L Seg Neutrophils % 54.6 49.1 Lymphocytes % 31.5 36.1 Monocytes % 9.6 10.0 Eosinophils % 3.4 4.0 Basophils % 0.9 0.8 Absolute Neutrophils 1.6 L 1.5 L Absolute Lymphocytes 0.9 1.1 Absolute Monocytes 0.3 0.3 Absolute Eosinophils 0.1 0.1 Absolute Basophils 0.0 0.0 Impressions: Abdomen/Pelvis CT 03/10/17 00:00 IMPRESSION: Intra-abdominal and pelvic ascitic fluid as noted above. Small umbilical hernia is identified containing a small amount of bowel without obstruction and ascitic fluid. Mild hydronephrosis of the left kidney. Other findings as noted above Paracentesis Ultrasound 03/11/17 08:33 IMPRESSION: Successful ultrasound-guided diagnostic and therapeutic paracentesis Assessment & Plan - Diagnosis (1) Pancytopenia Is this a current diagnosis for this admission?: YesPlan: Now we have final diagnosis, EGD indicated varices consistent with cirrhosis as we suspected, this is the cause of the pancytopenia, no further workup needed, he will need further IV iron as an outpatient, we will arrange this, he will see us in a few weeks time to go over this, we have asked for GI follow-up as well with Dr. Hanks. Discharge home today most likely.
[2017-03-13] MEDS: PROPRANOLOL HCL 10 MG TABLET PO SCH (09:33)
[2017-03-13] MEDS: OMEGA-3 ACID ETHYL ESTERS 1 GM CAPSULE PO SCH (09:33)
[2017-03-13] MEDS ORDERED: DOCUSATE SODIUM 100 MG CAPSULE PO SCH (10:00)
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
[2017-03-13 11:39] LABS: ADD HIVPANEL? NO; HIV (1 AND 2) ANTIBODY NEGATIVE (NEGATIVE)
[2017-03-13] MEDS ORDERED: FERROUS SULFATE 325 MG TABLET PO SCH (12:00)
--- NOTE | 2017-03-13 16:05 | PDOC PROGRESS REPORT ---
Subjective Progress Note for:: 03/13/17 Subjective:: doing well. no light headedness. no complaints Physical Exam Vital Signs: Temp Pulse Resp BP Pulse Ox 98.3 F 72 16 136/74 H 94 03/13/17 11:30 03/13/17 11:30 03/13/17 11:30 03/13/17 11:30 03/13/17 11:30 Intake & Output 03/12/17 03/13/17 03/14/17 06:59 06:59 06:59 Intake Total 900 2187 Balance 900 2187 Weight 88.2 kg General appearance: PRESENT: no acute distress, cooperative Respiratory exam: PRESENT: clear to auscultation branden Cardiovascular exam: PRESENT: RRR GI/Abdominal exam: PRESENT: other - soft, distended, easily reducible ventral hernias. Results Laboratory Results: 03/13/17 06:07 03/10/17 16:05 03/11/17 03/13/17 15:37 06:07 WBC 3.1 L RBC 3.03 L Hgb 8.0 L Hct 24.2 L MCV 80 MCH 26.4 L MCHC 33.1 RDW 17.1 H Plt Count 99 L Seg Neutrophils % 49.1 Lymphocytes % 36.1 Monocytes % 10.0 Eosinophils % 4.0 Basophils % 0.8 Absolute Neutrophils 1.5 L Absolute Lymphocytes 1.1 Absolute Monocytes 0.3 Absolute Eosinophils 0.1 Absolute Basophils 0.0 Fluid Total Protein 0.5 Fluid LDH 38 03/13/17 06:07 NT-Pro-B Natriuret Pep 291 Impressions: Abdomen/Pelvis CT 03/10/17 00:00 IMPRESSION: Intra-abdominal and pelvic ascitic fluid as noted above. Small umbilical hernia is identified containing a small amount of bowel without obstruction and ascitic fluid. Mild hydronephrosis of the left kidney. Other findings as noted above Paracentesis Ultrasound 03/11/17 08:33 IMPRESSION: Successful ultrasound-guided diagnostic and therapeutic paracentesis Assessment & Plan - Diagnosis (1) Pancytopenia Is this a current diagnosis for this admission?: Yes (2) Cirrhosis of liver with ascites Is this a current diagnosis for this admission?: YesPlan: tolerated propranolol. appreciated hospitalist input. d/c home. will set up outpt appointment with GI.
[2017-03-13 16:37] VITALS: BP 121/71
--- NOTE | 2017-03-13 16:54 | DISCHARGE SUMMARY E ---
Discharge Summary NAME: SLOANE SIMON : 1950 AGE: 67Y ADMITTED: 03/10/2017 DISCHARGED: 03/13/2017 DISCHARGE DIAGNOSIS: Hepatocellular cirrhosis with portal hypertension with ascites and esophageal varices with evidence of recent gastrointestinal bleed. SECONDARY DIAGNOSIS: Internal hemorrhoids. PROCEDURE PERFORMED DURING HOSPITALIZATION: Esophagogastroduodenoscopy with snare polypectomy of fundic gland polyp and colonoscopy performed by Dr. Rudolph Botello on March. HOSPITAL COURSE: The patient was noted with a hemoglobin of 8.2 and hematocrit of 24.7 that remained stable through his hospital stay with no further evidence of gastrointestinal bleed. He underwent an EGD and colonoscopy. EGD was noteworthy for very prominent esophageal varices but no active bleeding. He was also noted with incidental fundic gland polyp which was snare polypectomied and biopsy pathology proven. Colonoscopy demonstrated internal hemorrhoids but no evidence of colon malignancy. Gastroenterology consultation was not available at our hospital at this time. Oncology as well as Hospitalist consultations were obtained. The patient was begun on propranolol which he tolerated well. He was feeling well at the time of discharge with no evidence of presyncope and no evidence of GI bleed. The patient will be managed as an outpatient on a low-sodium/2-liter fluid restriction diet. Hospitalist was reluctant to place him on diuretics at this time. They thought that he was relatively fluid restricted. Hepatitis panel as well as HIV testing was sent out, but the results of the hepatitis panel is still pending. The HIV was negative. CONDITION ON DISCHARGE: The patient is now being discharged to home in fair condition. DISCHARGE INSTRUCTIONS: He will follow up with me in a couple of weeks. We will arrange an outpatient evaluation with Gastroenterology. He is to avoid alcohol and NSAIDs. DISCHARGE MEDICATIONS: 1. Inderal 10 mg 1 p.o. b.i.d. 2. Colace 100 mg 1 p.o. b.i.d. 3. Feosol 325 mg with each meal. The patient is to resume his: 4. Fish oil. 5. Omeprazole. DICTATING PHYSICIAN: RUDOLPH BOTELLO M.D. [id number] PHY#: [id number] ID: [id number] JOB#: [id number] ACCT: [id number] cc:RUDOLPH BOTELLO M.D. >
== END 2017-03-13 17:00 | disposition home or self-care (01) ==
LOC: OROUT 12:28 → 4S 17:15 → OROUT 03-13 17:00
PROVIDERS: ATTEND Surgery
PROC: 0DB68ZX Excision of Stomach, Via Natural or Artificial Opening Endoscopic, Diagnostic (ICD-10-PCS; principal; 2017-03-10)
PROC: 0W9G3ZZ Drainage of Peritoneal Cavity, Percutaneous Approach (ICD-10-PCS; 2017-03-10)
DX: K31.7 Polyp of stomach and duodenum (principal); I85.00 Esophageal varices without bleeding; K64.8 Other hemorrhoids; K21.9 Gastro-esophageal reflux disease without esophagitis; N13.30 Unspecified hydronephrosis; K76.6 Portal hypertension; K42.9 Umbilical hernia without obstruction or gangrene; K43.9 Ventral hernia without obstruction or gangrene; R74.0 Nonspecific elevation of levels of transaminase and lactic acid dehydrogenase [LDH]; R16.1 Splenomegaly, not elsewhere classified; D61.818 Other pancytopenia; K70.31 Alcoholic cirrhosis of liver with ascites; R06.00 Dyspnea, unspecified; C18.9 Malignant neoplasm of colon, unspecified; D50.0 Iron deficiency anemia secondary to blood loss (chronic); Z79.899 Other long term (current) drug therapy; Z87.891 Personal history of nicotine dependence; Z80.0 Family history of malignant neoplasm of digestive organs
CPT/HCPCS: 93005; 86900; 86901; 36415 ×2; 87205; 87070; 86850; 82378; 82728; 83540; 83550; 83615 ×2; 83735; 84100; 84132; 85025; 85027 ×2; 85384; 85610; 85730; 89050; 87075; 85045; 80048 ×2; 80053; 86701; 82105; 84157; 80074; 83880; 88162; 88342 ×2; 88305 ×2; 88313 ×2; 49083; 74177; 93010; 43239; J2250; Q0138; A9270 ×10; J3490 ×4; J2405; J7030 ×2; J0131; J2270; J2704; J3010

== ENCOUNTER → 2017-03-27 | Outpatient (CLI) | payer MEDICARE, OTHER ==
--- NOTE | 2017-03-27 13:17 | RADIOLOGY REPORT (SQ) ---
EXAM DESCRIPTION: MRI ABDOMEN COMBO COMPLETED DATE/TIME: 03/27/2017 11:42 am REASON FOR STUDY: OTHER CIRRHOSIS OF LIVER K74.69 OTHER CIRRHOSIS OF LIVER R18.8 OTHER ASCITES R97 .8 OTHER ABNORMAL TUMOR MARKERS COMPARISON: Ultrasound, CT. TECHNIQUE: Multiplanar multisequence imaging performed without and with contrast including sagittal, axial and coronal T2, axial T1, axial gradient fat sat T1, axial, sagittal and coronal fat sat T1 po st contrast. CONTRAST TYPE AND DOSE: 20 mL Prohance. RENAL FUNCTION: GFR > 60. LIMITATIONS: None. FINDINGS: LIVER: For no focal masses. No dilated ducts. No signal alteration. SPLEEN: Splenomegaly at 14.6 cm. No focal masses. PANCREAS: No masses. No adjacent inflammation or peripancreatic fluid collections. Pancreatic duct no t dilated. GALLBLADDER: No masses. No stones. No gallbladder wall thickening or pericholecystic fluid. ADRENAL GLANDS: No significant masses or asymmetry. RIGHT KIDNEY AND URETER: No masses. No hydronephrosis. LEFT KIDNEY AND URETER: Mild hydronephrosis secondary deep UPJ obstruction. AORTA AND VESSELS: No aneurysm. No dissection. Renal arteries, SMA, celiac without stenosis. RETROPERITONEUM: No retroperitoneal adenopathy, hemorrhage or masses. BOWEL: No visualized masses. No inflammation. No significant dilatation. ABDOMINAL WALL AND PERITONEUM: No hernias. No free fluid. BONES: No acute or significant findings. OTHER: No other significant finding. IMPRESSION: no significant finding in the liver. No masses and no fatty infiltration. Mild left hydronephrosis secondary UPJ obstruction. TECHNICAL DOCUMENTATION: JOB ID: [id number] [employer]- All Rights Reserved
== END ==
LOC: RAD 10:23
PROVIDERS: ATTEND Internal Medicine Gastroenterology
DX: K74.69 Other cirrhosis of liver (principal); R18.8 Other ascites; R97.8 Other abnormal tumor markers
CPT/HCPCS: 74183; A9576

== ENCOUNTER 2017-04-07 15:01 | Day surgery (SDC) | payer MEDICARE, OTHER ==
[2017-04-07] MEDS ORDERED: NALOXONE HCL INJ/PF 0.4 MG/1 ML SDV ONE (15:35)
[2017-04-07] MEDS ORDERED: FLUMAZENIL INJ 0.5 MG/5 ML VIAL IV ONE (15:36)
[2017-04-07] MEDS ORDERED: EPINEPHRINE INJ 1 MG/10 ML DISP.SYRIN ONE (15:36)
[2017-04-07] MEDS ORDERED: GLUCAGON,HUMAN RECOMB 1 MG INJ ONE (15:36)
[2017-04-07] MEDS ORDERED: FENTANYL CITRATE INJ/PF 100 MCG/2 ML AMPUL ONE (15:36)
[2017-04-07] MEDS: MIDAZOLAM 2 MG/2 ML INJ ONE ×2 (16:25→16:32)
--- NOTE | 2017-04-07 16:50 | Operative Report ---
Operative Report DATE OF SURGERY: 04/07/17 Operative Report: Pre-op diagnosis: History of severe GI bleed and esophageal varices Post-op diagnosis: Multiple very large and tortuous esophageal varices Surgery: Esophagogastroduodenoscopy Medications: Versed 3mg Fentanyl 100mcg IV push Tissue removed: None Procedure: After informed consent obtained from patient, the throat was sprayed with Hurricane and conscious sedation was achieved. The upper endoscope was inserted into the esophagus under direct vision and advanced into the stomach. The duodenum was entered and examined to the second part. Endoscope was then slowly pulled out of the patient as the mucosa was examined into details. Patient tolerated procedure well. Findings Esophagus: He has multiple columns of very large, tortous varices involving the last 15 cm of the esophagus. I did not feel I could safely grasp any of the varix column within a rubber band due to the size. Antrum: Normal Body: Normal Fundus: Normal Duodenum first part: Normal Duodenum second part: Normal Plan: We will increase his propranolol and continue medication prophylaxis for his portal hypertension. OPERATION: .
--- NOTE | 2017-04-07 17:06 | PDOC DISCHARGE SUMMARY ---
Discharge Summary (SDC) - Discharge Final Diagnosis: Esophageal varices Esophageal varices Date of Surgery: 04/07/17 Condition: Stable Treatment or Instructions: Increase propranolol to 20 mg twice daily Discharge Diet: Other (Comments) - Low-salt diet Discharge Activity: Activity As Tolerated Report the Following to Your Physician Immediately: Shortness of Breath, Nausea , Vomiting, Increase in Pain, Swelling, Warmth, Increased Soreness
[2017-04-07 17:20] LABS: PROTHROMBIN TIME 15.2 SEC (11.4-15.4)
[2017-04-07 17:29] LABS: ALANINE AMINOTRANSFERASE 77 U/L (21-72); ALBUMIN 3.5 g/dL (3.5-5.0); ALKALINE PHOSPHATASE 82 U/L (38-126); ANION GAP 9 (5-19); ASPARTATE AMINO TRANSFERASE 116 U/L (17-59); BILIRUBIN,DIRECT 0.3 mg/dL (0.0-0.4); BILIRUBIN,TOTAL 0.7 mg/dL (0.2-1.3); BLOOD UREA NITROGEN 11 mg/dL (7-20); CARBON DIOXIDE 27 mmol/L (22-30); CHLORIDE 104 mmol/L (98-107); GLUCOSE 91 mg/dL (75-110); POTASSIUM 4.3 mmol/L (3.6-5.0); SODIUM 139.8 mmol/L (137-145); TOTAL PROTEIN 7.1 g/dL (6.3-8.2)
[2017-04-07 17:52] VITALS: BP 113/65
[2017-04-07 18:28] LABS: ABSOLUTE EOSINOPHILS # (AUTO) 0.1 10^3/uL (0.0-0.6); ABSOLUTE LYMPHOCYTES (AUTO) 1.2 10^3/uL (0.5-4.7); ABSOLUTE MONOCYTES (AUTO) 0.3 10^3/uL (0.1-1.4); ABSOLUTE NEUT (AUTO) 1.9 10^3/uL (1.7-8.2); EOSINOPHILS % (AUTO) 3.5 % (0-6); HEMATOCRIT 38.8 % (37.9-51.0); HEMOGLOBIN 12.3 g/dL (13.5-17.0); HGB HCT DIFFERENCE -1.9; LYMPHOCYTES % (AUTO) 34.4 % (13-45); MEAN CORPUSCULAR HEMOGLOBIN 27.1 pg (27.0-33.4); MEAN CORPUSCULAR HGB CONC 31.8 g/dL (32.0-36.0); MONOCYTES % (AUTO) 8.1 % (3-13); RED BLOOD COUNT 4.56 10^6/uL (4.35-5.55); RED CELL DISTRIBUTION WIDTH 22.8 % (11.5-14.0); WHITE BLOOD COUNT 3.6 10^3/uL (4.0-10.5)
[2017-04-07 18:37] LABS: MEAN CORPUSCULAR VOLUME 85 fl (80-97)
== END 2017-04-07 18:05 | disposition home or self-care (01) ==
LOC: END 15:01
PROVIDERS: ATTEND Internal Medicine Gastroenterology
PROC: 0DJ08ZZ Inspection of Upper Intestinal Tract, Via Natural or Artificial Opening Endoscopic (ICD-10-PCS; principal; 2017-04-07 15:30)
DX: I85.00 Esophageal varices without bleeding (principal); K74.69 Other cirrhosis of liver; R18.8 Other ascites; D50.0 Iron deficiency anemia secondary to blood loss (chronic); B18.2 Chronic viral hepatitis C; K92.2 Gastrointestinal hemorrhage, unspecified
CPT/HCPCS: 43235; 36415; 85025; 85610; 80053; J2250; J0171; J3010; J1610; J2310; J3490

== ENCOUNTER → 2017-05-14 | Outpatient (CLI) | payer MEDICARE, OTHER ==
[~2017-05-14] MED LIST changes: -ACETAMINOPHEN 325 MG TABLET PO PRN; -BUPIVACAINE HCL 0.25 % INJ/PF (2.5 MG/1 ML) 30 ML VIAL ONE; -CEFAZOLIN 2 GM/D5W RTU 2 GM/50 ML RTUPB IV PRN; +FUROSEMIDE INJ/PF 40 MG/4 ML SDV ONE; -LACTATED RINGERS 1000 ML IV PRN
--- NOTE | 2017-05-14 16:48 | RADIOLOGY REPORT (SQ) ---
EXAM DESCRIPTION: NM RENAL WITH LASIX COMPLETED DATE/TIME: 05/14/2017 12:24 pm REASON FOR STUDY: HYDRONEPHROSIS N13.30 UNSPECIFIED HYDRONEPHROSIS COMPARISON: None. RADIONUCLIDE AND DOSE: 5.43 millicuries Tc-99m MAG 3 The route of agent administration: Intravenous ADDITIONAL DRUGS AND DOSES: Lasix 20 mg. TECHNIQUE: Following administration of the radionuclide, flow images of the kidneys were acquired fo llowed by sequential imaging for 30 minutes. Intravenous Lasix was given at the midpoint of the study . Time activity curves were generated. LIMITATIONS: None. FINDINGS: ACTIVITY LEFT KIDNEY: 58 %. ACTIVITY RIGHT KIDNEY: 42 %. There is prompt uptake of activity in the kidneys bilaterally simultaneous with passage of the aortic bolus. On the left side there is evidence of obstructive uropathy. There is persistent accumulation of radi opharmaceutical in the dilated pelvicaliceal system with no progression into the ureter. Time activi ty curves demonstrate persistent retention of activity in the collecting system with no response to L asix. There is normal excretion of the right kidney with progression of activity from the renal cortex into the collecting system and subsequently into the ureter. Time activity curves demonstrate normal exc retory pattern of the right kidney with no abnormal retention. No obstructive changes. IMPRESSION: OBSTRUCTIVE UROPATHY ON THE LEFT SIDE SECONDARY TO URETEROPELVIC JUNCTION OBSTRUCTION. NORMAL LASIX RENOGRAM ON THE RIGHT SIDE. TECHNICAL DOCUMENTATION: JOB ID: [id number] [employer]- All Rights Reserved
== END ==
LOC: RAD 09:53
PROVIDERS: ATTEND Urology
DX: N13.30 Unspecified hydronephrosis (principal)
CPT/HCPCS: 78708; A9562; J1940

== ENCOUNTER → 2018-03-01 | Outpatient (CLI) | payer MEDICARE, OTHER ==
--- NOTE | 2018-03-01 11:33 | RADIOLOGY REPORT (SQ) ---
EXAM DESCRIPTION: MRI ABDOMEN COMBO COMPLETED DATE/TIME: 03/01/2018 11:10 am REASON FOR STUDY: CIRRHOSIS, NON ALCOHOL/ABNORMAL TUMOR K74.69 OTHER CIRRHOSIS OF LIVER R97.8 OTHE R ABNORMAL TUMOR MARKERS COMPARISON: MRI abdomen 03/27/2017 Abdominal ultrasound 03/11/2017 CT abdomen pelvis 03/10/2017 TECHNIQUE: Multiplanar multisequence imaging performed without and with contrast including sagittal, axial and coronal T2, axial T1, axial gradient fat sat T1, axial, sagittal and coronal fat sat T1 po st contrast. CONTRAST TYPE AND DOSE: 20 mL Prohance. RENAL FUNCTION: GFR > 60. LIMITATIONS: None. FINDINGS: LIVER: Normal size. No masses. No dilated ducts. CBD normal. Normal contrast enhancement of the main portal vein, right and left portal vein, hepatic veins. SPLEEN: 14 cm in length. No focal lesions PANCREAS: No masses. No adjacent inflammation or peripancreatic fluid collections. Pancreatic duct no t dilated. GALLBLADDER: No masses. No stones. No gallbladder wall thickening or pericholecystic fluid. ADRENAL GLANDS: No significant masses or asymmetry. RIGHT KIDNEY AND URETER: No masses. No hydronephrosis. LEFT KIDNEY AND URETER: No masses. There is left-sided caliectasis and mildly enlarged left renal pe lvis, stable compared to previous exams. Question congenital UPJ obstruction. AORTA AND VESSELS: No aneurysm. No dissection. Renal arteries, SMA, celiac without stenosis. RETROPERITONEUM: No retroperitoneal adenopathy, hemorrhage or masses. BOWEL: Not well seen ABDOMINAL WALL AND PERITONEUM: No adenopathy or abdominal aorta aneurysm BONES: No acute or significant findings. OTHER: There is a umbilical hernia containing nonobstructed small bowel loops. IMPRESSION: There is splenomegaly without ascites No focal liver lesions TECHNICAL DOCUMENTATION: JOB ID: [id number]- All Rights Reserved Reading location - IP/workstation name: [email or web address]
== END ==
LOC: RAD 10:04
PROVIDERS: ATTEND Internal Medicine Gastroenterology
DX: K74.69 Other cirrhosis of liver (principal); R97.8 Other abnormal tumor markers; R16.1 Splenomegaly, not elsewhere classified
CPT/HCPCS: 82565; 74183; A9576

== ENCOUNTER → 2018-08-23 | Outpatient (CLI) | payer MEDICARE, OTHER ==
--- NOTE | 2018-08-23 10:21 | RADIOLOGY REPORT (SQ) ---
EXAM DESCRIPTION: U/S RETROPERITON (RENAL/AORTA) COMPLETED DATE/TIME: 08/23/2018 10:02 am REASON FOR STUDY: UNSPEC HYDRONEPHROSIS (N13.30) N13.30 UNSPECIFIED HYDRONEPHROSIS COMPARISON: MRI abdomen dated 03/01/2018 and 03/27/2017 TECHNIQUE: Dynamic and static grayscale images acquired of the kidneys and bladder and recorded on P ACS. Additional selected color Doppler and spectral images recorded. LIMITATIONS: None. FINDINGS: RIGHT KIDNEY: The right kidney measures 9.4 cm in length. Normal echogenicity. No solid or suspicious masses. No hydronephrosis. No calcifications. LEFT KIDNEY: The left kidney measures 13.0 cm in length. Normal echogenicity. Mild prominence of t he renal. Mid. No evidence for significant hydronephrosis. No calcifications BLADDER: No masses. Bilateral ureteral jets are not visualized. OTHER FINDINGS: The spleen measures 15.6 cm in length, prominent in size. IMPRESSION: 1. The right kidney is slightly smaller in size than the left. No significant hydronep hrosis involving either kidney. 2. Incidental finding splenomegaly. TECHNICAL DOCUMENTATION: JOB ID: [id number] [employer]- All Rights Reserved Reading location - IP/workstation name: [email or web address]
== END ==
LOC: RAD 09:02
PROVIDERS: ATTEND Urology
DX: N13.30 Unspecified hydronephrosis (principal); R16.1 Splenomegaly, not elsewhere classified
CPT/HCPCS: 76770

== ENCOUNTER 2018-09-14 15:14 | Emergency (ER) | payer MEDICARE, OTHER ==
--- NOTE | 2018-09-14 16:45 | ER Document Report ---
ED General - General Chief Complaint: Dizziness Stated Complaint: BLOOD PRESSURE PROBLEM Time Seen by Provider: 09/14/18 16:36 Notes: This is a 68-year-old male who had a near syncopal episode while at [facility]. EMS was called. Patient never lost consciousness. Denied any chest pain or shortness of breath. States he just felt a little bit dizzy. Patient has multiple medical problems. 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 Followed by gastroenterology, internal medicine as well as hematology. Does not have any malignancy. Denies any chest pain or shortness of breath. Patient does state that he takes stool softeners and he had a couple of fiber bars today and seems to have some loose stool and may have lost his bowels. TRAVEL OUTSIDE OF THE [place] IN LAST 30 DAYS: No - HPI Onset: Just prior to arrival Onset/Duration: Gradual - Related Data Allergies/Adverse Reactions: No Known Allergies Allergy (Verified 09/14/18 15:25) Past Medical History - General Information source: Patient - Social History Smoking Status: Never Smoker Chew tobacco use (# tins/day): No Frequency of alcohol use: None Drug Abuse: None Lives with: Alone Family History: Malignancy - Father with colon cancer in his 50s. Patient has suicidal ideation: No Patient has homicidal ideation: No - Past Medical History Cardiac Medical History: Reports: Hx Hypertension Denies: Hx Coronary Artery Disease, Hx Heart Attack Pulmonary Medical History: Denies: Hx Asthma, Hx Bronchitis, Hx COPD, Hx Pneumonia Neurological Medical History: Denies: Hx Cerebrovascular Accident, Hx Seizures Renal/ Medical History: Denies: Hx Peritoneal Dialysis GI Medical History: Reports: Hx Gastroesophageal Reflux Disease Musculoskeletal Medical History: Denies Hx Arthritis Past Surgical History: Reports: Hx Orthopedic Surgery - L arm, Other - Arm orthopedic surgery in the remote past. - Immunizations Hx Diphtheria, Pertussis, Tetanus Vaccination: Yes Hx Pneumococcal Vaccination: 02/09/17 Review of Systems - Review of Systems Notes: Constitutional: denies: Chills, Diaphoresis, Fever, Malaise, Weakness EENT: denies: Eye discharge, Blurred vision, Tearing, Double vision, Nose congestion, Nose discharge, Throat swelling, Mouth pain Cardiovascular: denies: Palpitations, Heart racing, Orthopnea, Dyspnea, Chest pain Respiratory: denies: Cough, Hurts to breathe, Wheezing, Shortness of breath Gastrointestinal: denies: Abdominal pain, Diarrhea, Nausea, Vomiting, Black stools, bright red blood in stool Genitourinary: denies: Burning, Dysuria, Discharge, Frequency, Flank pain, Hematuria Musculoskeletal: denies: Joint pain, Joint swelling, Muscle pain, Muscle stiffness, back pain Hematologic/Lymphatic: denies: Anemia, Easy bleeding, Easy bruising, Blood clots Neurological/Psychological: denies: Confusion, Dementia, Depression, Loss of consciousness Skin: No lesions, no masses, no skin breakdown, no abscesses Physical Exam - Vital signs Vitals: Temp 98.5 F 09/14/18 15:15 Interpretation: Hypotensive - General General appearance: Appears well, Alert - HEENT Head: Normocephalic, Atraumatic Eyes: Normal Pupils: PERRL - Respiratory Respiratory status: No respiratory distress Chest status: Nontender Breath sounds: Normal Chest palpation: Normal - Cardiovascular Rhythm: Regular Heart sounds: Normal auscultation Murmur: No - Abdominal Inspection: Normal Distension: No distension Bowel sounds: Normal Tenderness: Nontender Organomegaly: No organomegaly - Rectal Stool: Heme negative, Black - Back Back: Normal, Nontender - Extremities General upper extremity: Normal inspection, Nontender, Normal color, Normal ROM , Normal temperature General lower extremity: Normal inspection, Nontender, Normal color, Normal ROM , Normal temperature, Normal weight bearing. No: Boone's sign - Neurological Neuro grossly intact: Yes Cognition: Normal Orientation: AAOx4 Callie Coma Scale Eye Opening: Spontaneous Callie Coma Scale Verbal: Oriented Callie Coma Scale Motor: Obeys Commands [place] Coma Scale Total: 15 Speech: Normal Motor strength normal: LUE, RUE, LLE, RLE Sensory: Normal - Psychological Associated symptoms: Normal affect, Normal mood - Skin Skin Temperature: Warm Skin Moisture: Dry Skin Color: Normal Course - Re-evaluation Re-evalutation: 09/14/18 21:22 Laboratory 09/14/18 09/14/18 09/14/18 15:35 15:35 15:35 WBC 4.2 RBC 3.53 L Hgb 11.2 L Hct 31.5 L MCV 89 MCH 31.7 MCHC 35.5 RDW 13.9 Plt Count 67 L Seg Neutrophils % 51.6 Lymphocytes % 31.9 Monocytes % 12.7 Eosinophils % 2.8 Basophils % 1.0 Absolute Neutrophils 2.2 Absolute Lymphocytes 1.3 Absolute Monocytes 0.5 Absolute Eosinophils 0.1 Absolute Basophils 0.0 Sodium 141.0 Potassium 4.3 Chloride 107 Carbon Dioxide 24 Anion Gap 10 BUN 17 Creatinine 0.77 Est GFR ( Amer) > 60 Est GFR (Non-Af Amer) > 60 Glucose 147 H Calcium 8.5 Total Bilirubin 0.6 Direct Bilirubin 0.2 Neonat Total Bilirubin Not Reportable Neonat Direct Bilirubin Not Reportable Neonat Indirect Bili Not Reportable AST 29 ALT 21 Alkaline Phosphatase 48 Creatine Kinase 51 L CK-MB (CK-2) 0.61 Troponin I < 0.012 Total Protein 5.3 L Albumin 2.7 L Stool Occult Blood 09/14/18 19:44 WBC RBC Hgb Hct MCV MCH MCHC RDW Plt Count Seg Neutrophils % Lymphocytes % Monocytes % Eosinophils % Basophils % Absolute Neutrophils Absolute Lymphocytes Absolute Monocytes Absolute Eosinophils Absolute Basophils Sodium Potassium Chloride Carbon Dioxide Anion Gap BUN Creatinine Est GFR ( Amer) Est GFR (Non-Af Amer) Glucose Calcium Total Bilirubin Direct Bilirubin Neonat Total Bilirubin Neonat Direct Bilirubin Neonat Indirect Bili AST ALT Alkaline Phosphatase Creatine Kinase CK-MB (CK-2) Troponin I Total Protein Albumin Stool Occult Blood NEGATIVE Chest X-Ray 09/14/18 16:44 IMPRESSION: NO ACUTE RADIOGRAPHIC FINDING IN THE CHEST. Patient states he feels much better after getting fluids. Patient did have some transient hypotension however has multiple blood pressures now that are acceptable. He is not tachycardic. Does not feel bad. Wants to go home. Guaiac negative. Has multiple specialist to follow him. At this time I feel comfortable discharging. I did offer the patient an admission based on his symptoms he would more than likely would warrant a observation admission however patient adamantly denies wanting to stay in the hospital and is more concerned about his crockpot that is plugged him and he is hungry and wants to go home and eat his dinner that has been cooking all day. DC at this time. - Vital Signs Vital signs: Temp Pulse Resp BP Pulse Ox 98.3 F 67 20 96/69 L 97 09/14/18 21:36 09/14/18 15:26 09/14/18 21:31 09/14/18 21:32 09/14/18 21:30 - Laboratory Result Diagrams: 09/14/18 15:35 09/14/18 15:35 Laboratory results interpreted by me: 09/14/18 09/14/18 15:35 15:35 RBC 3.53 L Hgb 11.2 L Hct 31.5 L Plt Count 67 L Glucose 147 H Creatine Kinase 51 L Total Protein 5.3 L Albumin 2.7 L - EKG Interpretation by Me EKG shows normal: Sinus rhythm, [place], Intervals, QRS Complexes, ST-T Waves Discharge - Discharge Clinical Impression: Transient hypotension Condition: Good Disposition: HOME, SELF-CARE Instructions: Dizziness ([facility]), Orthostatic Hypotension ([facility]) Additional Instructions: Return immediately for any concerns. Please drink plenty of fluid. Hold your panel all tonight and tomorrow morning. If you are feeling better you may resume your regular medications tomorrow night. Follow-up with your regular doctor soon as possible. Referrals: ISIS GÓMEZ MD [Primary Care Provider] - Follow up as needed
--- NOTE | 2018-09-14 17:11 | RADIOLOGY REPORT (SQ) ---
EXAM DESCRIPTION: CHEST SINGLE VIEW COMPLETED DATE/TIME: 09/14/2018 4:58 pm REASON FOR STUDY: sob COMPARISON: None. EXAM PARAMETERS: NUMBER OF VIEWS: One view. TECHNIQUE: Single frontal radiographic view of the chest acquired. RADIATION DOSE: NA LIMITATIONS: None. FINDINGS: LUNGS AND PLEURA: No opacities, masses or pneumothorax. No pleural effusion. MEDIASTINUM AND HILAR STRUCTURES: No masses. Contour normal. HEART AND VASCULAR STRUCTURES: Heart normal in size. Normal vasculature. BONES: There is rib deformity in the left upper hemithorax laterally. HARDWARE: None in the chest. OTHER: No other significant finding. IMPRESSION: NO ACUTE RADIOGRAPHIC FINDING IN THE CHEST. TECHNICAL DOCUMENTATION: JOB ID: [id number]- All Rights Reserved Reading location - IP/workstation name: [email or web address]
[2018-09-14 17:40] LABS: ABSOLUTE EOSINOPHILS # (AUTO) 0.1 10^3/uL (0.0-0.6); ABSOLUTE LYMPHOCYTES (AUTO) 1.3 10^3/uL (0.5-4.7); ABSOLUTE MONOCYTES (AUTO) 0.5 10^3/uL (0.1-1.4); ABSOLUTE NEUT (AUTO) 2.2 10^3/uL (1.7-8.2); EOSINOPHILS % (AUTO) 2.8 % (0-6); HEMATOCRIT 31.5 % (37.9-51.0); HEMOGLOBIN 11.2 g/dL (13.5-17.0); LYMPHOCYTES % (AUTO) 31.9 % (13-45); MEAN CORPUSCULAR HEMOGLOBIN 31.7 pg (27.0-33.4); MEAN CORPUSCULAR HGB CONC 35.5 g/dL (32.0-36.0); MEAN CORPUSCULAR VOLUME 89 fl (80-97); MONOCYTES % (AUTO) 12.7 % (3-13); RED BLOOD COUNT 3.53 10^6/uL (4.35-5.55); RED CELL DISTRIBUTION WIDTH 13.9 % (11.5-14.0); SEGMENTED NEUTROPHILS % (AUTO) 51.6 % (42-78); TOTAL CELLS COUNTED % (AUTO) 100 %; WHITE BLOOD COUNT 4.2 10^3/uL (4.0-10.5)
[2018-09-14 17:50] LABS: ALANINE AMINOTRANSFERASE 21 U/L (21-72); ALBUMIN 2.7 g/dL (3.5-5.0); ALKALINE PHOSPHATASE 48 U/L (38-126); ANION GAP 10 (5-19); ASPARTATE AMINO TRANSFERASE 29 U/L (17-59); BILIRUBIN,DIRECT 0.2 mg/dL (0.0-0.4); BILIRUBIN,TOTAL 0.6 mg/dL (0.2-1.3); BLOOD UREA NITROGEN 17 mg/dL (7-20); CALCIUM 8.5 mg/dL (8.4-10.2); CARBON DIOXIDE 24 mmol/L (22-30); CHLORIDE 107 mmol/L (98-107); CREATINE KINASE 51 U/L (55-170); GLUCOSE 147 mg/dL (75-110); POTASSIUM 4.3 mmol/L (3.6-5.0); TOTAL PROTEIN 5.3 g/dL (6.3-8.2)
[2018-09-14 18:02] LABS: CREATINE KINASE MB 0.61 ng/mL (<4.55)
[2018-09-14 18:04] LABS: TROPONIN I < 0.012 ng/mL
[2018-09-14 18:08] LABS: PLATELET COUNT 67 10^3/uL (150-450)
--- NOTE | 2018-09-14 20:09 | EKG REPORT ---
SEVERITY:- NORMAL ECG - SINUS RHYTHM : Confirmed by: sJ Wood 14-Sep-2018 20:08:54
[2018-09-14 21:36] VITALS: BP 96/69
== END 2018-09-14 21:36 | disposition home or self-care (01) ==
LOC: ER 15:14
DX: I95.9 Hypotension, unspecified (principal); R55 Syncope and collapse; I10 Essential (primary) hypertension; Z79.899 Other long term (current) drug therapy
CPT/HCPCS: 36415; 71045; 80053; 82272; 82550; 82553; 84484; 85025; 93005; 93010; 99284

== ENCOUNTER 2018-09-22 18:12 | Inpatient (IN) | payer MEDICARE, OTHER ==
[2018-09-22 19:07] LABS: ABSOLUTE BASOPHILS # (AUTO) 0.1 10^3/uL (0.0-0.2); ABSOLUTE LYMPHOCYTES (AUTO) 3.1 10^3/uL (0.5-4.7); ABSOLUTE MONOCYTES (AUTO) 0.8 10^3/uL (0.1-1.4); BASOPHILS % (AUTO) 0.5 % (0-2); EOSINOPHILS % (AUTO) 0.2 % (0-6); HEMATOCRIT 16.8 % (37.9-51.0); LYMPHOCYTES % (AUTO) 18.4 % (13-45); MEAN CORPUSCULAR HEMOGLOBIN 32.4 pg (27.0-33.4); MEAN CORPUSCULAR HGB CONC 33.6 g/dL (32.0-36.0); MONOCYTES % (AUTO) 4.8 % (3-13); PLATELET COUNT 161 10^3/uL (150-450); RED BLOOD COUNT 1.74 10^6/uL (4.35-5.55); RED CELL DISTRIBUTION WIDTH 16.2 % (11.5-14.0); SEGMENTED NEUTROPHILS % (AUTO) 76.1 % (42-78); TOTAL CELLS COUNTED % (AUTO) 100 %; WHITE BLOOD COUNT 17.1 10^3/uL (4.0-10.5)
[2018-09-22 19:08] LABS: INTERNATIONAL RATION (INR) 1.37; PROTHROMBIN TIME 17.5 SEC (11.4-15.4)
--- NOTE | 2018-09-22 19:16 | ER Document Report ---
ED General - General Chief Complaint: GI Bleeding Stated Complaint: RECTAL BLEEDING Time Seen by Provider: 09/22/18 18:31 Notes: 68-year-old male in no acute distress with history of cirrhosis presents to the emergency department for diarrhea, pain in his kidneys and "feeling faint". He was seen here last Thursday for the symptoms of lightheadedness and was Hemoccult negative then. This past Thursday night he had a nosebleed and a bowel movement that was concerning for blood. Since then he has had severe dyspnea on exertion, lightheadedness, and "cannot walk 50 feet without stopping ". He endorses dizziness, diarrhea that is chronic in nature with blood in it, and flank pain. He denies nausea, vomiting, or any other symptoms. He was at his doctor's office last Thursday and was told that his hemoglobin was 10. TRAVEL OUTSIDE OF THE [place] IN LAST 30 DAYS: No - Related Data Allergies/Adverse Reactions: No Known Allergies Allergy (Verified 09/14/18 15:25) Past Medical History - General Information source: Patient - Social History Smoking Status: Unknown if Ever Smoked Frequency of alcohol use: quit 2.5 years ago Drug Abuse: None Lives with: Alone Family History: Reviewed & Not Pertinent, Malignancy - Father with colon cancer in his 50s. Patient has suicidal ideation: No Patient has homicidal ideation: No - Past Medical History Cardiac Medical History: Reports: Hx Hypertension Denies: Hx Coronary Artery Disease, Hx Heart Attack Pulmonary Medical History: Denies: Hx Asthma, Hx Bronchitis, Hx COPD, Hx Pneumonia Neurological Medical History: Denies: Hx Cerebrovascular Accident, Hx Seizures Renal/ Medical History: Denies: Hx Peritoneal Dialysis GI Medical History: Reports: Hx Gastroesophageal Reflux Disease Musculoskeletal Medical History: Denies Hx Arthritis Past Surgical History: Reports: Hx Orthopedic Surgery - L arm, Other - Arm orthopedic surgery in the remote past. - Immunizations Hx Diphtheria, Pertussis, Tetanus Vaccination: Yes Hx Pneumococcal Vaccination: 02/09/17 Review of Systems - Review of Systems Constitutional: See HPI EENT: See HPI Cardiovascular: See HPI Respiratory: See HPI Gastrointestinal: See HPI Genitourinary: See HPI Male Genitourinary: No symptoms reported Musculoskeletal: No symptoms reported Skin: No symptoms reported Hematologic/Lymphatic: No symptoms reported Neurological/Psychological: No symptoms reported Physical Exam - Vital signs Vitals: BP 111/94 H 09/22/18 18:24 - Notes Notes: Reviewed vital signs and nursing note as charted by RN. CONSTITUTIONAL: well-nourished, acting appropriately for age HEAD: Normocephalic, atraumatic, no swelling EYES: PERRL, Conjunctivae clear, no drainage, EOMI, no scleral icterus ENT: External ears without lesions, External auditory canal is patent, airway patent, mucous membranes pink and moist NECK: Supple, no cervical lymphadenopathy, no masses CARD: Regular rate and rhythm, no murmurs, no rubs, no gallops, capillary refill < 2 seconds, symmetric pulses RESP: The lungs are clear to auscultation bilaterally, no wheezing, no rales, no rhonchi. Respiratory rate and effort are normal, normal chest excursion. No respiratory distress, no retractions, no stridor, no nasal flaring, no accessory muscle use. ABD/GI: Normal bowel sounds, non-distended, soft, non-tender, no rebound, no guarding, no organomegaly, rectal exam performed, loose stool and gross blood visualized, occult blood sample taken EXT: Normal ROM in all joints, non-tender to palpation, no effusions, no edema SKIN: Normal color for age and race, warm, dry, good turgor, no acute lesions noted NEURO: No facial asymmetry, moves all extremities equally, motor and sensory function intact Course - Re-evaluation Re-evalutation: 09/22/18 19:54 Evaluated patient. Abdomen was soft, no tenderness to palpation. Reducible umbilical hernia noted. Patient's hemoglobin 5.7. Small amount of gross blood noted in rectum upon performing rectal exam. Hemoccult sent. 2 units PRBCs ordered. Reassessed patient at the bedside after nurse reported that map was 55. Recycled blood pressure and blood pressure was normal. Gave fluid bolus while waiting for blood products. Blood pressures remained stable I called Dr. Herr for consultation for concern for lower GI bleed. 09/22/18 21:20 Dr. Herr saw the patient performed a gastric lavage to rule out an upper GI bleed. He deferred to the hospitalist for medical management. I called Dr. Underwood the hospitalist and he accepted the patient. 09/23/18 05:41 - Vital Signs Vital signs: Temp Pulse Resp BP Pulse Ox 99.0 F 83 18 114/56 L 94 09/23/18 03:48 09/23/18 03:48 09/23/18 03:48 09/23/18 03:48 09/23/18 03:48 - Laboratory Result Diagrams: 09/22/18 18:51 09/22/18 18:51 Laboratory results interpreted by me: 09/22/18 09/22/18 09/22/18 18:51 18:51 18:51 WBC 17.1 H RBC 1.74 L Hgb 5.7 L Hct 16.8 L RDW 16.2 H Absolute Neutrophils 13.0 H PT 17.5 H Chloride 113 H Carbon Dioxide 21 L BUN 29 H Glucose 112 H Calcium 8.0 L Total Protein 5.2 L Albumin 2.7 L Crossmatch 09/22/18 19:38 WBC RBC Hgb Hct RDW Absolute Neutrophils PT Chloride Carbon Dioxide BUN Glucose Calcium Total Protein Albumin Crossmatch See Detail Discharge - Discharge Clinical Impression: Lower GI bleed Condition: Stable Disposition: ADMITTED INPATIENT Admitting Provider: Hospitalist Unit Admitted: Medical Floor
[2018-09-22 19:19] LABS: MEAN CORPUSCULAR VOLUME 97 fl (80-97)
[2018-09-22 19:21] LABS: ALANINE AMINOTRANSFERASE 30 U/L (21-72); ALBUMIN 2.7 g/dL (3.5-5.0); ALKALINE PHOSPHATASE 39 U/L (38-126); ANION GAP 6 (5-19); ASPARTATE AMINO TRANSFERASE 44 U/L (17-59); BILIRUBIN,DIRECT 0.1 mg/dL (0.0-0.4); BILIRUBIN,TOTAL 0.6 mg/dL (0.2-1.3); BLOOD UREA NITROGEN 29 mg/dL (7-20); CARBON DIOXIDE 21 mmol/L (22-30); CHLORIDE 113 mmol/L (98-107); GLUCOSE 112 mg/dL (75-110); HEMOGLOBIN 5.7 g/dL (13.5-17.0); POTASSIUM 4.7 mmol/L (3.6-5.0); SODIUM 140.4 mmol/L (137-145); TOTAL PROTEIN 5.2 g/dL (6.3-8.2)
[2018-09-22] MEDS ORDERED: NORMAL SALINE 250 ML IV PRN ×2 (19:35)
--- NOTE | 2018-09-22 19:50 | RADIOLOGY REPORT (SQ) ---
EXAM DESCRIPTION: CHEST SINGLE VIEW COMPLETED DATE/TIME: 09/22/2018 7:36 pm REASON FOR STUDY: dyspnea COMPARISON: 09/14/2018 EXAM PARAMETERS: NUMBER OF VIEWS: One view. TECHNIQUE: Single frontal radiographic view of the chest acquired. RADIATION DOSE: NA LIMITATIONS: None. FINDINGS: LUNGS AND PLEURA: No consolidation or pleural effusions. Slight pleural thickening in the periphery of the left upper lobe is unchanged and most likely associated with the rib deformity. MEDIASTINUM AND HILAR STRUCTURES: No masses. Contour normal. HEART AND VASCULAR STRUCTURES: Heart normal in size. Normal vasculature. BONES: No acute findings. HARDWARE: None in the chest. OTHER: No other significant finding. IMPRESSION: No interval change in the chest. No acute findings. Pleural thickening in the left upp er lateral chest is most likely related to the rib deformity. TECHNICAL DOCUMENTATION: JOB ID: [id number] [employer]- All Rights Reserved Reading location - IP/workstation name: [email or web address]
[2018-09-22] MEDS ORDERED: LIDOCAINE 1% INJ-PF (10 MG/ML) 30 ML SDV NEB ONE (20:08)
--- NOTE | 2018-09-22 20:50 | EKG REPORT ---
SEVERITY:- BORDERLINE ECG - SINUS RHYTHM BORDERLINE PROLONGED QT INTERVAL : Confirmed by: Sol Hector MD 22-Sep-2018 20:50:27
[2018-09-22] MEDS ORDERED: POTASSI CL 20 MEQ/D5-1/2NS 1L 1,000 ML IV PRN (21:22)
[2018-09-22] MEDS ORDERED: MAGNESIUM HYDROXIDE SUSP 30 ML UDCUP PO PRN (21:22)
[2018-09-22] MEDS ORDERED: MAG HYDROX/AL HYDROX/SIMETH SUSP 30 ML UDCUP PO PRN (21:22)
[2018-09-22] MEDS ORDERED: ONDANSETRON HCL INJ/PF 4 MG/2 ML SDV IV PRN (21:22)
[2018-09-22] MEDS ORDERED: ONDANSETRON 4 MG TAB.RAPDIS PO PRN (21:22)
--- NOTE | 2018-09-22 21:27 | PDOC CONSULTATION ---
History of Present Illness Admission Date/PCP: ISIS GÓMEZ MD Patient complains of: rectal bleeding History of Present Illness: SLOANE SIMON III is a 68 year old male seen at the request of the emergency room physician. There is a patient with a history of liver disease and cirrhosis. The patient has a 3-4 day history of feeling faint. The patient was evaluated in the ER several days ago, where no significant abnormality was identified. The patient reports that today he began having dark black bowel movements with clots present. Patient began feeling worse and presented to the emergency department. He denies nausea, vomiting, hematemesis , chest pain, shortness of breath, fevers, chills. He does report malaise, fatigue, melena, hematochezia, orthostasis. His hemoglobin was found to be 5.7. The patient is currently receiving transfusion. The patient's last colonoscopy was approximately 18 months ago and was normal (per his report). He does have a family history of colon cancer. Past Medical History Cardiac Medical History: Reports: Hypertension Denies: Coronary Artery Disease, Myocardial Infarction Pulmonary Medical History: Denies: Asthma, Bronchitis, Chronic Obstructive Pulmonary Disease (COPD), Pneumonia Neurological Medical History: Denies: Seizures GI Medical History: Reports: Cirrhosis, Gastroesophageal Reflux Disease Musculoskeltal Medical History: Denies: Arthritis Hematology: Denies: Anemia Past Surgical History Past Surgical History: Reports: Orthopedic Surgery - L arm, Other - Arm orthopedic surgery in the remote past, colonoscopy 04/2017 Social History Smoking Status: Unknown if Ever Smoked Frequency of Alcohol Use: Heavy - but quit, was drinking 7-10 beers/day Hx Recreational Drug Use: Yes - no IVDA, afraid of needles Drugs: Marijuana Hx Prescription Drug Abuse: No Family History Family History: Malignancy - Father with colon cancer in his 50s. Parental Family History Reviewed: Yes Children Family History Reviewed: Yes Sibling(s) Family History Reviewed.: Yes Medication/Allergy Home Medications: Multivitamin [Multivitamins] 1 tab PO DAILY 03/03/17 [place]-3/Dha/Epa/Fish Oil [Fish Oil 1,000 mg Softgel] 1 cap PO DAILY 03/03/17 Omeprazole 1 cap PO DAILY 03/03/17 Docusate Sodium [Colace 100 mg Capsule] 100 mg PO BID #60 capsule 03/13/17 Ferrous Sulfate [Feosol 325 mg Tablet] 325 mg PO MEALS #90 tablet 03/13/17 Propranolol HCl [Inderal 10 mg Tablet] 10 mg PO Q12 #60 tablet 03/13/17 Allergies/Adverse Reactions: No Known Allergies Allergy (Verified 09/14/18 15:25) Review of Systems Constitutional: PRESENT: fatigue, weakness. ABSENT: fever(s), headache(s) Eyes: ABSENT: visual disturbances Ears: ABSENT: hearing changes Nose, Mouth, and Throat: ABSENT: sore throat Cardiovascular: ABSENT: chest pain Respiratory: ABSENT: cough, dyspnea Gastrointestinal: PRESENT: hematochezia, melena. ABSENT: abdominal pain, hematemesis Genitourinary: ABSENT: difficulty urinating Musculoskeletal: ABSENT: back pain Integumentary: ABSENT: diaphoresis Neurological: PRESENT: dizziness. ABSENT: confusion, convulsions Psychiatric: ABSENT: anxiety Endocrine: ABSENT: cold intolerance, heat intolerance Hematologic/Lymphatic: ABSENT: easy bruising Physical Exam Vital Signs: Temp Pulse Resp BP Pulse Ox 98.4 F 99 18 119/43 L 96 09/22/18 21:06 09/22/18 21:06 09/22/18 21:06 09/22/18 21:06 09/22/18 21:06 Intake & Output 09/21/18 09/22/18 09/23/18 06:59 06:59 06:59 Intake Total 0 Balance 0 Weight 81.647 kg General appearance: PRESENT: no acute distress Head exam: PRESENT: atraumatic, normocephalic Eye exam: PRESENT: EOMI, PERRLA Mouth exam: PRESENT: neck supple Neck exam: ABSENT: meningismus, tenderness, thyromegaly, tracheal deviation Respiratory exam: PRESENT: clear to auscultation branden. ABSENT: chest wall tenderness Cardiovascular exam: PRESENT: RRR Pulses: PRESENT: normal radial pulses Vascular exam: PRESENT: pallor GI/Abdominal exam: PRESENT: soft. ABSENT: distended, guarding, rigid, tenderness Rectal exam: PRESENT: black stool, normal rectal tone. ABSENT: hemorrhoids Extremities exam: ABSENT: clubbing Neurological exam: PRESENT: alert, awake, oriented to person, oriented to place , oriented to time, oriented to situation, CN II-XII grossly intact Psychiatric exam: ABSENT: agitated, anxious, depressed Skin exam: ABSENT: cyanosis, erythema, jaundice Results Laboratory Results: 09/22/18 18:51 09/22/18 18:51 09/22/18 09/22/18 09/22/18 18:51 18:51 19:38 WBC 17.1 H RBC 1.74 L Hgb 5.7 L Hct 16.8 L MCV 97 D MCH 32.4 MCHC 33.6 RDW 16.2 H Plt Count 161 Seg Neutrophils % 76.1 Lymphocytes % 18.4 Monocytes % 4.8 Eosinophils % 0.2 Basophils % 0.5 Absolute Neutrophils 13.0 H Absolute Lymphocytes 3.1 Absolute Monocytes 0.8 Absolute Eosinophils 0.0 Absolute Basophils 0.1 Sodium 140.4 Potassium 4.7 Chloride 113 H Carbon Dioxide 21 L Anion Gap 6 BUN 29 H Creatinine 0.87 Est GFR ( Amer) > 60 Est GFR (Non-Af Amer) > 60 Glucose 112 H Calcium 8.0 L Total Bilirubin 0.6 AST 44 ALT 30 Alkaline Phosphatase 39 Total Protein 5.2 L Albumin 2.7 L Blood Type B POSITIVE Antibody Screen NEGATIVE 09/22/18 18:51 Troponin I < 0.012 Impressions: Chest X-Ray 09/22/18 19:19 IMPRESSION: No interval change in the chest. No acute findings. Pleural thickening in the left upper lateral chest is most likely related to the rib deformity. Assessment & Plan - Diagnosis (1) Lower GI bleeding Is this a current diagnosis for this admission?: Yes (2) Cirrhosis of liver with ascites Qualifiers: Hepatic cirrhosis type: unspecified hepatic cirrhosis Qualified Code(s): K74.60 - Unspecified cirrhosis of liver; R18.8 - Other ascites; R18.8 - Other ascites Is this a current diagnosis for this admission?: Yes - Plan Summary Plan Summary: This is a cirrhotic patient with lower GI bleeding. I personally inserted an NG tube and performed gastric lavage. No blood or coffee grounds could be identified upon lavage. The bleeding source is presumed to be distal to the duodenum. Patient is having dark, bloody bowel movements. His last bowel movement was earlier today. Currently, the patient's hemoglobin is 5.7. He is undergoing transfusion at this time. I recommend stabilization, resuscitation, and transfusion. Plan for colonoscopy tomorrow if the patient will tolerate a bowel prep. If continued bleeding is suspected, the patient will need a localization study (CT angiogram) versus urgent colectomy. I will follow this patient closely with you.
[2018-09-22] MEDS ORDERED: ACETAMINOPHEN 325 MG TABLET PO PRN (21:31)
[2018-09-22] MEDS ORDERED: MORPHINE SULFATE 10 MG/ML INJ IV PRN ×3 (21:31)
[2018-09-22] MEDS ORDERED: ACETAMINOPHEN 650 MG SUPP.RECT PR PRN (21:31)
[2018-09-22] MEDS ORDERED: BISACODYL 5 MG TABEC PO ONE (22:00)
[2018-09-22] MEDS ORDERED: FAMOTIDINE 20 MG TABLET PO SCH (22:00)
[2018-09-22] MEDS ORDERED: DIPHENHYDRAMINE HCL 25 MG CAPSULE ONE (22:46)
[2018-09-22] MEDS ORDERED: DIPHENHYDRAMINE HCL 25 MG CAPSULE PO ONE (22:52)
[2018-09-23] MEDS ORDERED: FUROSEMIDE INJ/PF 20 MG/2 ML SDV IV PRN (01:00)
[2018-09-23] MEDS: POLYETHYLENE GLYCOL 3350 POWDER 17 GM/1 PACKET PO ONE ×2 (01:38→03:45)
[2018-09-23] MEDS: PROPRANOLOL HCL 10 MG TABLET PO SCH ×3 (01:38→23:04)
--- NOTE | 2018-09-23 03:13 | PDOC H&P ---
History of Present Illness Admission Date/PCP: ISIS GÓMEZ MD Patient complains of: Progressive weakness History of Present Illness: SLOANE SIMON III is a 68 year old male who presented to the emergency room with a history that he has been having progressive weakness and dyspnea ( especially on exertion) for the last week or more. He has associated symptoms of feeling faint and lightheaded, occasional pains in his mid back (perinephric ) areas, one episode of epistaxis, 1 day of diarrhea stools, progressively worsening dizziness and most recently nausea with vomiting over the last 24 hours. He admits that he passed several large blood clots per his rectum today prior to coming to the emergency room. He denies prior similar episodes and has not identified any aggravating or ameliorating factors for his progressive weakness and dyspnea or for his passing blood through his rectum. In the emergency room he was found to have a hemoglobin of 5.7 and was subsequently admitted hospital for further evaluation and treatment with a surgical consultation made by the emergency room physician to Dr. Herr. Past Medical History Cardiac Medical History: Reports: Hypertension Denies: Atrial Fibrillation, Coronary Artery Disease, Myocardial Infarction Pulmonary Medical History: Denies: Asthma, Bronchitis, Chronic Obstructive Pulmonary Disease (COPD), Pneumonia EENT Medical History: Reports: None Neurological Medical History: Denies: Hemorrhagic CVA, Ischemic CVA, Seizures Endocrine Medical History: Denies: Diabetes Mellitus Type 1, Diabetes Mellitus Type 2 Renal/ Medical History: Denies: Chronic Kidney Disease, Nephrolithiasis Malignancy Medical History: Reports: None GI Medical History: Reports: Cirrhosis, Gastroesophageal Reflux Disease Denies: Hepatitis Musculoskeltal Medical History: Denies: Arthritis, Gout Skin Medical History: Denies: Eczema, Psoriasis Psychiatric Medical History: Denies: Alcohol Dependency, Substance Abuse, Tobacco Dependency Traumatic Medical History: Reports: None Hematology: Denies: Anemia, Bleeding Tendencies Infectious Medical History: Reports: None Past Surgical History Past Surgical History: Reports: Orthopedic Surgery - L arm, Other - Arm orthopedic surgery in the remote past, colonoscopy 04/2017 Social History Smoking Status: Unknown if Ever Smoked Frequency of Alcohol Use: Heavy - but quit, was drinking 7-10 beers/day Hx Recreational Drug Use: Yes - no IVDA, afraid of needles Drugs: Marijuana Hx Prescription Drug Abuse: No - Advance Directive Resuscitation Status: Full Code Surrogate healthcare decision maker:: Spouse Family History Family History: Malignancy - Father with colon cancer in his 50s. Parental Family History Reviewed: Yes Children Family History Reviewed: No Sibling(s) Family History Reviewed.: Yes Medication/Allergy Home Medications: Multivitamin [Multivitamins] 1 tab PO DAILY 03/03/17 [place]-3/Dha/Epa/Fish Oil [Fish Oil 1,000 mg Softgel] 1 cap PO DAILY 03/03/17 Omeprazole 1 cap PO DAILY 03/03/17 Docusate Sodium [Colace 100 mg Capsule] 100 mg PO BID #60 capsule 03/13/17 Ferrous Sulfate [Feosol 325 mg Tablet] 325 mg PO MEALS #90 tablet 03/13/17 Propranolol HCl [Inderal 10 mg Tablet] 10 mg PO Q12 #60 tablet 03/13/17 Allergies/Adverse Reactions: No Known Allergies Allergy (Verified 09/14/18 15:25) Review of Systems Constitutional: PRESENT: as per HPI, weakness. ABSENT: chills, fever(s) Eyes: ABSENT: visual disturbances, other - Ocular pain Ears: ABSENT: hearing changes, other - Ear pain Nose, Mouth, and Throat: ABSENT: mouth pain, sore throat Cardiovascular: PRESENT: dyspnea on exertion, palpitations - Tachycardia. ABSENT: chest pain, edema, orthropnea Respiratory: PRESENT: dyspnea. ABSENT: cough, hemoptysis Gastrointestinal: PRESENT: as per HPI, diarrhea, nausea, vomiting. ABSENT: abdominal pain, constipation Genitourinary: ABSENT: dysuria, hematuria Musculoskeletal: ABSENT: deformity, joint swelling Integumentary: ABSENT: pruritus, rash Neurological: ABSENT: confusion, convulsions, memory loss, tremor(s) Psychiatric: ABSENT: anxiety, depression Endocrine: ABSENT: cold intolerance, heat intolerance Hematologic/Lymphatic: ABSENT: easy bleeding, easy bruising Physical Exam Vital Signs: Temp Pulse Resp BP Pulse Ox 98.4 F 99 18 119/43 L 96 09/22/18 21:06 09/22/18 21:06 09/22/18 21:06 09/22/18 21:06 09/22/18 21:06 Intake & Output 09/20/18 09/21/18 09/22/18 23:59 23:59 23:59 Intake Total 0 Balance 0 Weight 81.647 kg General appearance: PRESENT: no acute distress, cooperative Head exam: PRESENT: atraumatic, normocephalic Eye exam: PRESENT: conjunctiva pale, EOMI. ABSENT: nystagmus, scleral icterus Ear exam: PRESENT: normal external ear exam. ABSENT: bleeding Mouth exam: PRESENT: neck supple, other - Oral mucosa is moist and intact, dentition is in fair repair Neck exam: ABSENT: JVD, thyromegaly, tracheal deviation Respiratory exam: PRESENT: clear to auscultation branden, symmetrical, unlabored Cardiovascular exam: PRESENT: RRR. ABSENT: clicks, gallop, rubs Pulses: PRESENT: normal radial pulses, normal dorsalis pedis pul GI/Abdominal exam: PRESENT: hernia - Umbilical hernia noted, easily reducible, normal bowel sounds, soft. ABSENT: tenderness Rectal exam: PRESENT: deferred Extremities exam: ABSENT: joint swelling, pedal edema Musculoskeletal exam: PRESENT: full ROM, normal inspection Neurological exam: PRESENT: alert, oriented to person, oriented to place, oriented to time, oriented to situation, CN II-XII grossly intact. ABSENT: motor sensory deficit Psychiatric exam: PRESENT: appropriate affect, normal mood Skin exam: PRESENT: dry, intact, warm. ABSENT: jaundice, rash, urticaria Results Laboratory Results: 09/22/18 18:51 09/22/18 18:51 09/22/18 09/22/18 09/22/18 18:51 18:51 19:38 WBC 17.1 H RBC 1.74 L Hgb 5.7 L Hct 16.8 L MCV 97 D MCH 32.4 MCHC 33.6 RDW 16.2 H Plt Count 161 Seg Neutrophils % 76.1 Lymphocytes % 18.4 Monocytes % 4.8 Eosinophils % 0.2 Basophils % 0.5 Absolute Neutrophils 13.0 H Absolute Lymphocytes 3.1 Absolute Monocytes 0.8 Absolute Eosinophils 0.0 Absolute Basophils 0.1 Sodium 140.4 Potassium 4.7 Chloride 113 H Carbon Dioxide 21 L Anion Gap 6 BUN 29 H Creatinine 0.87 Est GFR ( Amer) > 60 Est GFR (Non-Af Amer) > 60 Glucose 112 H Calcium 8.0 L Total Bilirubin 0.6 AST 44 ALT 30 Alkaline Phosphatase 39 Total Protein 5.2 L Albumin 2.7 L Stool Occult Blood Blood Type B POSITIVE Antibody Screen NEGATIVE 09/22/18 19:45 WBC RBC Hgb Hct MCV MCH MCHC RDW Plt Count Seg Neutrophils % Lymphocytes % Monocytes % Eosinophils % Basophils % Absolute Neutrophils Absolute Lymphocytes Absolute Monocytes Absolute Eosinophils Absolute Basophils Sodium Potassium Chloride Carbon Dioxide Anion Gap BUN Creatinine Est GFR ( Amer) Est GFR (Non-Af Amer) Glucose Calcium Total Bilirubin AST ALT Alkaline Phosphatase Total Protein Albumin Stool Occult Blood POSITIVE Blood Type Antibody Screen 09/22/18 18:51 Troponin I < 0.012 Impressions: Chest X-Ray 09/22/18 19:19 IMPRESSION: No interval change in the chest. No acute findings. Pleural thickening in the left upper lateral chest is most likely related to the rib deformity. Assessment & Plan - Diagnosis (1) Lower GI bleeding Is this a current diagnosis for this admission?: Yes Plan: Patient has been seen by Dr. Herr for surgical evaluation in the ER and is presumed Dr. Herr will be followed along to determine whether further evaluation is needed to establish the cause of or treat the patient's lower GI hemorrhage. (2) Anemia associated with acute blood loss Is this a current diagnosis for this admission?: Yes Plan: Patient's anemia is being addressed by transfusion of 2 units of packed red blood cells and serial CBCs performed every 6 hours to observe for further blood loss or other hematologic abnormalities. (3) Hepatic cirrhosis Is this a current diagnosis for this admission?: Yes Plan: Patient's hepatic cirrhosis will be observed by monitoring his metabolic panel on a regular basis. (4) Leukocytosis Qualifiers: Leukocytosis type: unspecified Qualified Code(s): D72.829 - Elevated white blood cell count, unspecified Is this a current diagnosis for this admission?: Yes Plan: Patient's leukocytosis will be observed over the course of serial CBCs performed on a daily basis. (5) Flank pain Is this a current diagnosis for this admission?: Yes Plan: Patient has been having bilateral flank pain which is not unusual for him but it is considerably worse than normal. He will receive morphine sulfate IV on a sliding scale as needed for control of his flank pain. - Time Time Spent: 30 to 50 Minutes Critical Time spent with patient: Less than 15 minutes Medications reviewed and adjusted accordingly: Yes Anticipated discharge: Home - Inpatient Certification Based on my medical assessment, after consideration of the patient's comorbidities, presenting symptoms, or acuity I expect that the services needed warrant INPATIENT care.: Yes I certify that my determination is in accordance with my understanding of Medicare's requirements for reasonable and necessary INPATIENT services [42 CFR 412.3e].: Yes Medical Necessity: Significant Comorbidiites Make Outpatient Treatment Too Risky , Need Close Monitoring Due to Risk of Patient Decompensation, Need for Pain Control, Risk of Complication if Not Cared For in Hospital
[2018-09-23] MEDS ORDERED: FUROSEMIDE 20 MG TABLET PO PRN (05:11)
[2018-09-23] MEDS ORDERED: DIPHENHYDRAMINE HCL 25 MG CAPSULE PO PRN (05:11)
[2018-09-23] MEDS ORDERED: NORMAL SALINE 250 ML IV PRN ×4 (05:11→15:56)
[2018-09-23] MEDS ORDERED: ACETAMINOPHEN 325 MG TABLET PO PRN (05:11)
[2018-09-23 07:14] LABS: ANION GAP 7 (5-19); BLOOD UREA NITROGEN 29 mg/dL (7-20); CARBON DIOXIDE 20 mmol/L (22-30); CHLORIDE 115 mmol/L (98-107); GLUCOSE 175 mg/dL (75-110); SODIUM 141.9 mmol/L (137-145)
[2018-09-23 07:17] LABS: ABSOLUTE EOSINOPHILS # (AUTO) 0.1 10^3/uL (0.0-0.6); ABSOLUTE LYMPHOCYTES (AUTO) 1.9 10^3/uL (0.5-4.7); ABSOLUTE MONOCYTES (AUTO) 1.1 10^3/uL (0.1-1.4); ABSOLUTE NEUT (AUTO) 8.2 10^3/uL (1.7-8.2); BASOPHILS % (AUTO) 0.4 % (0-2); EOSINOPHILS % (AUTO) 0.9 % (0-6); HEMATOCRIT 18.2 % (37.9-51.0); LYMPHOCYTES % (AUTO) 16.5 % (13-45); MEAN CORPUSCULAR HEMOGLOBIN 30.9 pg (27.0-33.4); MONOCYTES % (AUTO) 9.7 % (3-13); SEGMENTED NEUTROPHILS % (AUTO) 72.5 % (42-78); TOTAL CELLS COUNTED % (AUTO) 100 %; WHITE BLOOD COUNT 11.3 10^3/uL (4.0-10.5)
[2018-09-23 07:27] LABS: FREE T3 1.59 pg/mL (2.77-5.27); FREE T4 (FREE THYROXINE) 0.83 ng/dL (0.78-2.19)
[2018-09-23 07:41] LABS: MEAN CORPUSCULAR VOLUME 91 fl (80-97); THYROID STIMULATING HORMONE 2.2 uIU/mL (0.47-4.68)
[2018-09-23 07:42] LABS: HEMOGLOBIN 6.2 g/dL (13.5-17.0)
[2018-09-23 07:44] LABS: PLATELET COUNT 93 10^3/uL (150-450)
[2018-09-23] MEDS ORDERED: NORMAL SALINE 1000 ML 1,000 ML IV PRN (08:08)
--- NOTE | 2018-09-23 08:33 | PDOC PROGRESS REPORT ---
Subjective Progress Note for:: 09/23/18 Subjective:: 09/23/1998 [id number] male with history of liver cirrhosis came to the emergency room with progressive generalized weakness and shortness of breath for more than a week. He is also complaining of lightheadedness and occasional mid back pain, 1 day history of loose stools. He was progressively become dizzy also complaining of nausea and vomiting in the last 24 hours. He is also admitted to the ER team that he is passing large blood clots per rectum prior to the ER visit. In the emergency room hemoglobin was found to be 5.7 surgical consult was done with Dr. Herr. Patient was type type and crossmatch 1 and hospital list was called for admission here. So far patient got 2 units of PRBC, 3rd unit is running now. Test hemoglobin is 6.2. Patient was hypotensive with latest blood pressure 103/48. A rapid response was called this morning. Due to concerns about hemodynamically unstable patient I discussed care with the patient and transferring the patient to ICU. It was scheduled for colonoscopy today. Reason For Visit: ACUTE LOWER GASTROINTESTINAL HEMORRHAGE Physical Exam Vital Signs: Temp Pulse Resp BP Pulse Ox 98.5 F 81 12 103/48 L 100 09/23/18 07:26 09/23/18 07:26 09/23/18 07:26 09/23/18 07:26 09/23/18 07:26 Intake & Output 09/22/18 09/23/18 09/24/18 06:59 06:59 06:59 Intake Total 750 0 Balance 750 0 Weight 184.8 kg General appearance: PRESENT: no acute distress Head exam: PRESENT: atraumatic Eye exam: PRESENT: PERRLA Mouth exam: PRESENT: moist Neck exam: ABSENT: carotid bruit, JVD, lymphadenopathy, thyromegaly Respiratory exam: PRESENT: clear to auscultation branden. ABSENT: rales, rhonchi, wheezes Cardiovascular exam: PRESENT: RRR. ABSENT: diastolic murmur, rubs, systolic murmur GI/Abdominal exam: PRESENT: normal bowel sounds, soft. ABSENT: distended, guarding, mass, organolmegaly, rebound, tenderness Neurological exam: PRESENT: alert, awake, oriented to person, oriented to place , oriented to time, oriented to situation, CN II-XII grossly intact. ABSENT: motor sensory deficit Psychiatric exam: PRESENT: appropriate affect, normal mood. ABSENT: homicidal ideation, suicidal ideation Results Laboratory Results: 09/23/18 06:20 09/23/18 06:20 09/23/18 09/23/18 09/23/18 06:20 06:20 06:20 WBC 11.3 H RBC 2.00 L Hgb 6.2 L Hct 18.2 L MCV 91 D MCH 30.9 MCHC 34.0 RDW 16.0 H Plt Count 93 L Seg Neutrophils % 72.5 Lymphocytes % 16.5 Monocytes % 9.7 Eosinophils % 0.9 Basophils % 0.4 Absolute Neutrophils 8.2 Absolute Lymphocytes 1.9 Absolute Monocytes 1.1 Absolute Eosinophils 0.1 Absolute Basophils 0.0 Sodium 141.9 Potassium 4.0 Chloride 115 H Carbon Dioxide 20 L Anion Gap 7 BUN 29 H Creatinine 0.92 Est GFR ( Amer) > 60 Est GFR (Non-Af Amer) > 60 Glucose 175 H Calcium 7.0 L* Magnesium 1.9 TSH 2.20 Free T4 0.83 Free T3 pg/mL 1.59 L Impressions: Chest X-Ray 09/22/18 19:19 IMPRESSION: No interval change in the chest. No acute findings. Pleural thickening in the left upper lateral chest is most likely related to the rib deformity. Assessment & Plan - Diagnosis (1) Anemia associated with acute blood loss Is this a current diagnosis for this admission?: Yes Plan: 09/23/2018-patient was admitted with GI bleed surgical evaluation done in the ER Dr. Herr is planning to do colonoscopy today. Patient got 2 units of blood transfusion so far untoward unit is running now. Latest hemoglobin is 6.2. Rapid response was called this morning. Latest blood pressure is 103/48. Because of that stable condition and The Patient to ICU for Close Monitoring. Discussed the Case with Dr. Downs Today. He Said He Is Going to Take It in Touch with Dr. Herr. I Started Him on IV Fluids Normal 775 Cc/H. More Unit of PRBCs is available for blood transfusion. Patient condition is critical in my opinion. (2) Lower GI bleed Is this a current diagnosis for this admission?: Yes Plan: 09/23/2018 so far patient received 2 units of packed red blood cells, he is receiving the third unit of PRBC now hemoglobin is six-point. Patient complains of worsening lower GI bleed with GoLYTELY is refusing to drink GoLYTELY. She was requested every 6 hours. Patient is only on mechanical prophylaxis. I am going to put him on Protonix IV drip. 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 He said he quit drinking 2-1/2 years ago. Latest platelet count is 93,000. INR is 1.37. (4) Leukocytosis Qualifiers: Leukocytosis type: unspecified Qualified Code(s): D72.829 - Elevated white blood cell count, unspecified Is this a current diagnosis for this admission?: Yes Plan: 09/23/2018 initial WBC 17.0. It was improved to 11.0 today. - Time Time Spent with patient: 25-34 minutes Medications reviewed and adjusted accordingly: Yes
[2018-09-23] MEDS ORDERED: FERROUS SULFATE 325 MG TABLET PO SCH (09:00)
[2018-09-23] MEDS ORDERED: PANTOPRAZOLE SODIUM 80 MG in NORMAL SALINE 100 ML IV ONE (10:00)
[2018-09-23] MEDS ORDERED: NORMAL SALINE 100 ML with PANTOPRAZOLE SODIUM 80 MG IV PRN ×2 (10:00)
[2018-09-23] MEDS: DOCUSATE SODIUM 100 MG CAPSULE PO SCH ×2 (10:22→17:48)
[2018-09-23] MEDS ORDERED: EPHEDRINE SULFATE INJ 50 MG/1 ML AMPULE ONE ×2 (13:31→18:16)
[2018-09-23] MEDS ORDERED: PROPOFOL INJ 200 MG/20 ML VIAL IV ONE ×2 (13:31→18:16)
[2018-09-23 15:37] LABS: ABSOLUTE BASOPHILS # (AUTO) 0.1 10^3/uL (0.0-0.2); ABSOLUTE EOSINOPHILS # (AUTO) 0.1 10^3/uL (0.0-0.6); ABSOLUTE MONOCYTES (AUTO) 1.1 10^3/uL (0.1-1.4); ABSOLUTE NEUT (AUTO) 9.7 10^3/uL (1.7-8.2); BASOPHILS % (AUTO) 0.8 % (0-2); EOSINOPHILS % (AUTO) 0.8 % (0-6); HEMATOCRIT 27.1 % (37.9-51.0); LYMPHOCYTES % (AUTO) 21.5 % (13-45); MEAN CORPUSCULAR HEMOGLOBIN 30.5 pg (27.0-33.4); MEAN CORPUSCULAR HGB CONC 34.5 g/dL (32.0-36.0); MEAN CORPUSCULAR VOLUME 88 fl (80-97); MONOCYTES % (AUTO) 8.1 % (3-13); RED BLOOD COUNT 3.06 10^6/uL (4.35-5.55); RED CELL DISTRIBUTION WIDTH 15.6 % (11.5-14.0); SEGMENTED NEUTROPHILS % (AUTO) 68.8 % (42-78); TOTAL CELLS COUNTED % (AUTO) 100 %; WHITE BLOOD COUNT 14.1 10^3/uL (4.0-10.5)
[2018-09-23 15:47] LABS: HEMOGLOBIN 9.4 g/dL (13.5-17.0); PLATELET COUNT 75 10^3/uL (150-450)
[2018-09-23] MEDS ORDERED: NORMAL SALINE INJ/PF 0.9% 10 ML SDV IV PRN (15:57)
--- NOTE | 2018-09-23 18:09 | RADIOLOGY REPORT (SQ) ---
EXAM DESCRIPTION: NM GI BLEED SCAN COMPLETED DATE/TIME: 09/23/2018 5:53 pm REASON FOR STUDY: gi bleed COMPARISON: MRI abdomen 03/01/2018 CT abdomen pelvis 03/10/2017 RADIONUCLIDE AND DOSE: 32.2 millicuries Technetium-labeled red blood cells. The route of agent administration: Intravenous. TECHNIQUE: Serial arterial-phase images acquired for 80 seconds immediately following injection of r adionuclide. Additional 60 images acquired at 60 seconds per image. LIMITATIONS: None. FINDINGS: Flow images without focal areas of abnormal radionuclide location. Serial images show no abnormal accumulation of radionuclide. IMPRESSION: NORMAL RADIONUCLIDE GASTROINTESTINAL BLEEDING STUDY. TECHNICAL DOCUMENTATION: JOB ID: [id number] [employer]- All Rights Reserved Reading location - IP/workstation name: [email or web address]
[2018-09-23] MEDS ORDERED: MIDAZOLAM 2 MG/2 ML INJ ONE (18:15)
[2018-09-23] MEDS ORDERED: FENTANYL CITRATE INJ/PF 100 MCG/2 ML AMPUL ONE (18:15)
[2018-09-23] MEDS ORDERED: MEPERIDINE HCL/PF INJ 25 MG/1 ML DISP.SYRIN IV PRN (18:37)
[2018-09-23] MEDS ORDERED: PROMETHAZINE HCL INJ 25 MG/1 ML VIAL IV PRN (18:37)
[2018-09-23] MEDS ORDERED: DIPHENHYDRAMINE HCL 50 MG/ML VIAL IV PRN (18:37)
[2018-09-23] MEDS ORDERED: FENTANYL CITRATE INJ/PF 100 MCG/2 ML AMPUL IV PRN ×3 (18:37)
[2018-09-23] MEDS ORDERED: ONDANSETRON HCL INJ/PF 4 MG/2 ML SDV IV PRN (18:37)
--- NOTE | 2018-09-23 19:21 | PDOC TRANSFER SUMMARY ---
General Admission Date/PCP: 09/22/18 22:09 ISIS GÓMEZ MD Resuscitation Status: Full Code - Transfer Diagnosis (1) Anemia associated with acute blood loss Is this a current diagnosis for this admission?: Yes Diagnosis Summary: Patient's anemia is being addressed by transfusion of 2 units of packed red blood cells and serial CBCs performed every 6 hours to observe for further blood loss or other hematologic abnormalities. 32,018 patient received total of 4 units of PRBC. Latest hemoglobin is 9.4. Requested 2 more units of PRBC. We will check the CBC every 6 hours. (2) Lower GI bleed Is this a current diagnosis for this admission?: Yes Diagnosis Summary: 09/23/2018 so far patient received 2 units of packed red blood cells, he is receiving the third unit of PRBC now hemoglobin is six-point. Patient complains of worsening lower GI bleed with GoLYTELY is refusing to drink GoLYTELY. She was requested every 6 hours. Patient is only on mechanical prophylaxis. I am going to put him on Protonix IV drip. 09/23/2018 patient was admitted with lower GI bleed he has history of cirrhosis of the liver. He was seen by the surgical team last night that was softly he agreed to do the colonoscopy this today and requested the hospitalist to admit the patient. Patient has a rapid response this morning because of low blood pressure be started on IV fluids patient was transferred from telemetry to the ICU he received a total of 4 units of blood transfusion hemoglobin is 9.4 now latest blood pressure is 128/60. He is getting IV fluids normal saline at 75 cc /h. He is on Protonix drip. Bleeding scan was done which was negative. The surgeon Dr. Downs called me and told me to transfer the patient is a high risk of continuous GI bleeding and dropping platelets. In the ICU patient has at least 3-4 blood per rectum episodes. bright colored blood per rectum. Patient vital signs are relatively stable. (3) Hepatic cirrhosis Is this a current diagnosis for this admission?: Yes Diagnosis Summary: 09/23/2018 patient given the history of liver failure secondary to heavy alcohol use. He said he quit drinking 2-1/2 years ago. Latest platelet count is 93,000. INR is 1.37. 09/23/2018 patient has history of liver failure secondary to heavy alcohol use. His platelet count is 75,000. INR is stable around 1.37. (4) Leukocytosis Is this a current diagnosis for this admission?: Yes - Transfer Medications Home Medications: Multivitamin [Multivitamins] 1 tab PO DAILY 03/03/17 Omeprazole 20 mg PO DAILY 03/03/17 Fish Oil/Dha/Epa [Fish Oil 1,200 mg Fish Oil] 2,400 mg PO QPM 09/23/18 Propranolol HCl [Inderal 10 mg Tablet] 20 mg PO QHS 09/23/18 Propranolol HCl [Inderal 10 mg Tablet] 30 mg PO QAM 09/23/18 Transfer Medications: Current Medications Acetaminophen (Tylenol 325 Mg Tablet) 650 mg PO Q4HP PRN PRN Reason: For headache, pain or fever Stop: 10/22/18 21:30 Last Admin: 09/22/18 22:50 Dose: 650 mg Acetaminophen (Tylenol 650 Mg Supp) 650 mg [place] Q4HP PRN PRN Reason: For headache, pain or fever Stop: 10/22/18 21:30 Acetaminophen (Tylenol 325 Mg Tablet) 650 mg PO .BEFORE TRANSFUSION PRN PRN Reason: THIS MED IS NOT "PRN" Stop: 09/24/18 05:10 Al Hydrox/Mg Hydrox/Simethicone (Maalox Plus Susp 30 Udcup) 30 ml PO Q6HP PRN PRN Reason: HEARTBURN Stop: 10/22/18 21:21 Diphenhydramine HCl (Benadryl 25 Mg Capsule) 25 mg PO .BEFORE TRANSFUSION PRN PRN Reason: THIS MED IS NOT "PRN" Stop: 09/24/18 05:10 Diphenhydramine HCl (Benadryl Inj 50 Mg/1 Ml Vial) 12.5 mg IV .WHILE IN PACU PRN PRN Reason: ITCHING Stop: 09/23/18 21:38 Docusate Sodium (Colace 100 Mg Capsule) 100 mg PO BID UDAY Stop: 10/23/18 09:59 Last Admin: 09/23/18 17:48 Dose: Not Given Fentanyl Citrate (Sublimaze Inj/Pf 100 Mcg/2 Ml Ampule) 25 mcg IV .WHILE IN PACU PRN PRN Reason: PAIN SCALE 2-3 Stop: 09/23/18 21:38 Fentanyl Citrate (Sublimaze Inj/Pf 100 Mcg/2 Ml Ampule) 12.5 mcg IV .WHILE IN PACU PRN PRN Reason: PAIN SCALE OF 1 Stop: 09/23/18 21:38 Fentanyl Citrate (Sublimaze Inj/Pf 100 Mcg/2 Ml Ampule) 50 mcg IV .WHILE IN PACU PRN PRN Reason: PAIN SCALE 4-5 Stop: 09/23/18 21:38 Ferrous Sulfate (Feosol 325 Mg Tablet) 325 mg PO [id number] [facility] Stop: 10/23/18 08:59 Last Admin: 09/23/18 10:22 Dose: 325 mg Furosemide (Lasix Inj/Pf 20 Mg/2 Ml Sdv) 20 mg IV NOW PRN PRN Reason: SEE LABEL COMMENTS Furosemide (Lasix 20 Mg Tablet) 20 mg PO .AFTER FIRST UNIT PRN PRN Reason: THIS MED IS NOT "PRN" Stop: 09/24/18 05:10 Heparin Sodium (Porcine) (Heparin Flush 10 Unit/Ml 5 Ml Disp.Syrg) 30 unit IV .AFTER EACH USE PRN PRN Reason: AFTER EACH INTERMITTENT USE Stop: 10/23/18 15:56 Heparin Sodium (Porcine) (Heparin Flush 10 Unit/Ml 5 Ml Disp.Syrg) 30 unit IV Q8 [facility] Stop: 10/23/18 21:59 Sodium Chloride (Nacl 0.9% 1000 Ml Iv Soln) 1,000 mls @ 75 mls/hr IV CONTINUOUS PRN PRN Reason: THIS MED IS NOT "PRN" Stop: 10/23/18 08:07 Pantoprazole Sodium 80 mg/ (Sodium Chloride) 100 mls @ 10 mls/hr IV CONTINUOUS PRN PRN Reason: THIS MED IS NOT "PRN" Stop: 09/26/18 09:59 Last Admin: 09/23/18 12:19 Dose: 10 mls/hr, 10 mls/hr Sodium Chloride (Nacl 0.9% 250 Ml Iv Soln) 250 mls @ 30 mls/hr IV .DURING TRANSFUSION PRN PRN Reason: THIS MED IS NOT "PRN" Stop: 09/24/18 15:55 Sodium Chloride (Nacl 0.9% 250 Ml Iv Soln) 250 mls @ 0 mls/hr IV CONTINUOUS PRN ; As Directed PRN Reason: AFTER EACH UNIT Stop: 09/24/18 15:55 Magnesium Hydroxide (Milk Of Magnesia 30 Ml Udcup) 30 ml PO HSP PRN PRN Reason: FOR CONSTIPATION Stop: 10/22/18 21:21 Meperidine HCl (Demerol Inj 25 Mg/1 Ml Syringe) 12.5 mg IV .WHILE IN PACU PRN PRN Reason: Shivering Stop: 09/23/18 21:38 Morphine Sulfate (Morphine 10 Mg/Ml Inj) 2 mg IV Q2HP PRN PRN Reason: FOR PAIN SCALE 1-2 Stop: 09/29/18 21:30 Morphine Sulfate (Morphine 10 Mg/Ml Inj) 3 mg IV Q2HP PRN PRN Reason: FOR PAIN SCALE 3-4 Stop: 09/29/18 21:30 Morphine Sulfate (Morphine 10 Mg/Ml Inj) 4 mg IV Q2HP PRN PRN Reason: PAIN SCALE OF 5 Stop: 09/29/18 21:30 Ondansetron HCl (Zofran Odt 4 Mg Tablet) 4 mg PO Q4HP PRN PRN Reason: FOR NAUSEA/VOMITING Stop: 10/22/18 21:21 Ondansetron HCl (Zofran Inj/Pf 4 Mg/2 Ml Sdv) 4 mg IV Q4HP PRN PRN Reason: FOR NAUSEA/VOMITING Stop: 10/22/18 21:21 Ondansetron HCl (Zofran Inj/Pf 4 Mg/2 Ml Sdv) 4 mg IV .WHILE IN PACU PRN PRN Reason: NAUSEA AND VOMITING Stop: 09/23/18 21:38 Promethazine HCl (Phenergan Inj 25 Mg/1 Ml Vial) 12.5 mg IV .WHILE IN PACU PRN PRN Reason: NAUSEA AND VOMITING Stop: 09/23/18 21:38 Propranolol HCl (Inderal 10 Mg Tablet) 10 mg PO Q12 [facility] Stop: 10/22/18 21:59 Last Admin: 09/23/18 10:17 Dose: Not Given Sodium Chloride (Saline Flush 2.5 Ml Monoject Prefil Syrin) 2.5 ml IV Q8 [facility] Stop: 10/22/18 21:59 Last Admin: 09/23/18 14:09 Dose: Not Given Sodium Chloride (Nacl 0.9% Inj/Pf 10 Ml Sdv) 10 ml IV .AFTER EACH USE PRN PRN Reason: AFTER EACH INTERMITTENT USE Stop: 10/23/18 15:56 - Allergies Allergies/Adverse Reactions: No Known Allergies Allergy (Verified 09/14/18 15:25) - Diet/Activity Discharge Diet: Other (Comments) - npo Discharge Activity: Bedrest Hospital Course Hospital Course: 09/23/201868 year old male who presented to the emergency room with a history that he has been having progressive weakness and dyspnea (especially on exertion ) for the last week or more. He has associated symptoms of feeling faint and lightheaded, occasional pains in his mid back (perinephric) areas, one episode of epistaxis, 1 day of diarrhea stools, progressively worsening dizziness and most recently nausea with vomiting over the last 24 hours. He admits that he passed several large blood clots per his rectum today prior to coming to the emergency room. He denies prior similar episodes and has not identified any aggravating or ameliorating factors for his progressive weakness and dyspnea or for his passing blood through his rectum. In the emergency room he was found to have a hemoglobin of 5.7 and was subsequently admitted hospital for further evaluation and treatment with a surgical consultation made by the emergency room physician to Dr. Herr. 09/23/2018 patient was initially admitted to telemetry sounds to ICU for rapid response that was called because of low blood pressure he was started on IV fluids to go to 12 units when his blood transfusion continue to have blood Blood blood diet blood in the stool. He has a bleeding scan was done which was negative I just called a call from the surgeons that colonoscopy did not find any active bleeding site but they found large clots of blood. I spoke to Dr. Rubi in vident he more than happy to accept the patient appreciate his concerns and help.. Patient agreed to go to that facility. Physical Exam Vital Signs: Temp Pulse Resp BP Pulse Ox 98.6 F 85 20 128/78 H 100 09/23/18 18:00 09/23/18 17:50 09/23/18 18:00 09/23/18 17:50 09/23/18 18:00 Intake & Output 09/22/18 09/23/18 09/24/18 06:59 06:59 06:59 Intake Total 750 600 Output Total 500 Balance 750 100 Weight 184.8 kg 87.2 kg General appearance: PRESENT: no acute distress Head exam: PRESENT: atraumatic Eye exam: PRESENT: PERRLA Mouth exam: PRESENT: moist Neck exam: ABSENT: carotid bruit, JVD, lymphadenopathy, thyromegaly Respiratory exam: PRESENT: clear to auscultation branden. ABSENT: rales, rhonchi, wheezes GI/Abdominal exam: PRESENT: normal bowel sounds, soft. ABSENT: distended, guarding, mass, organolmegaly, rebound, tenderness Neurological exam: PRESENT: alert, awake, oriented to person, oriented to place , oriented to time, oriented to situation, CN II-XII grossly intact. ABSENT: motor sensory deficit Psychiatric exam: PRESENT: appropriate affect, normal mood. ABSENT: homicidal ideation, suicidal ideation Results Laboratory Results: 09/23/18 15:22 09/23/18 06:20 09/23/18 09/23/18 09/23/18 06:20 06:20 06:20 WBC 11.3 H RBC 2.00 L Hgb 6.2 L Hct 18.2 L MCV 91 D MCH 30.9 MCHC 34.0 RDW 16.0 H Plt Count 93 L Seg Neutrophils % 72.5 Lymphocytes % 16.5 Monocytes % 9.7 Eosinophils % 0.9 Basophils % 0.4 Absolute Neutrophils 8.2 Absolute Lymphocytes 1.9 Absolute Monocytes 1.1 Absolute Eosinophils 0.1 Absolute Basophils 0.0 Sodium 141.9 Potassium 4.0 Chloride 115 H Carbon Dioxide 20 L Anion Gap 7 BUN 29 H Creatinine 0.92 Est GFR ( Amer) > 60 Est GFR (Non-Af Amer) > 60 Glucose 175 H Calcium 7.0 L* Magnesium 1.9 TSH 2.20 Free T4 0.83 Free T3 pg/mL 1.59 L 09/23/18 15:22 WBC 14.1 H RBC 3.06 L Hgb 9.4 L D Hct 27.1 L MCV 88 MCH 30.5 MCHC 34.5 RDW 15.6 H Plt Count 75 L Seg Neutrophils % 68.8 Lymphocytes % 21.5 Monocytes % 8.1 Eosinophils % 0.8 Basophils % 0.8 Absolute Neutrophils 9.7 H Absolute Lymphocytes 3.0 Absolute Monocytes 1.1 Absolute Eosinophils 0.1 Absolute Basophils 0.1 Sodium Potassium Chloride Carbon Dioxide Anion Gap BUN Creatinine Est GFR ( Amer) Est GFR (Non-Af Amer) Glucose Calcium Magnesium TSH Free T4 Free T3 pg/mL Impressions: Chest X-Ray 09/22/18 19:19 IMPRESSION: No interval change in the chest. No acute findings. Pleural thickening in the left upper lateral chest is most likely related to the rib deformity. GI Bleed Scan Nuclear Medicine 09/23/18 00:00 IMPRESSION: NORMAL RADIONUCLIDE GASTROINTESTINAL BLEEDING STUDY.
[2018-09-23 20:09] LABS: HEMOGLOBIN 9.1 g/dL (13.5-17.0); MEAN CORPUSCULAR HGB CONC 35.1 g/dL (32.0-36.0); MEAN CORPUSCULAR VOLUME 89 fl (80-97); RED BLOOD COUNT 2.94 10^6/uL (4.35-5.55); RED CELL DISTRIBUTION WIDTH 15.7 % (11.5-14.0); WHITE BLOOD COUNT 12.1 10^3/uL (4.0-10.5)
--- NOTE | 2018-09-23 20:13 | PDOC PROGRESS REPORT ---
Subjective Progress Note for:: 09/23/18 Subjective:: No pains but just had some dark blood stools in holding side of the OR. No Complaints of pain or lightheadedness. Had 4 U PRBCs with HB up to 9.4. Had subsequent colonoscopy by Dr Herr. This showed clots in the large bowel but no bleeding. Reason For Visit: GI BLEED WITH HYPOTENSION Physical Exam Vital Signs: Temp Pulse Resp BP Pulse Ox 98.6 F 85 20 128/78 H 100 09/23/18 18:00 09/23/18 17:50 09/23/18 18:00 09/23/18 17:50 09/23/18 18:00 Intake & Output 09/22/18 09/23/18 09/24/18 06:59 06:59 06:59 Intake Total 750 600 Output Total 500 Balance 750 100 Weight 184.8 kg 87.2 kg Exam: abdomen is soft and remains non tender. Results Laboratory Results: 09/23/18 06:20 09/23/18 09/23/18 09/23/18 06:20 06:20 06:20 WBC 11.3 H RBC 2.00 L Hgb 6.2 L Hct 18.2 L MCV 91 D MCH 30.9 MCHC 34.0 RDW 16.0 H Plt Count 93 L Seg Neutrophils % 72.5 Lymphocytes % 16.5 Monocytes % 9.7 Eosinophils % 0.9 Basophils % 0.4 Absolute Neutrophils 8.2 Absolute Lymphocytes 1.9 Absolute Monocytes 1.1 Absolute Eosinophils 0.1 Absolute Basophils 0.0 Sodium 141.9 Potassium 4.0 Chloride 115 H Carbon Dioxide 20 L Anion Gap 7 BUN 29 H Creatinine 0.92 Est GFR ( Amer) > 60 Est GFR (Non-Af Amer) > 60 Glucose 175 H Calcium 7.0 L* Magnesium 1.9 TSH 2.20 Free T4 0.83 Free T3 pg/mL 1.59 L 09/23/18 15:22 WBC 14.1 H RBC 3.06 L Hgb 9.4 L D Hct 27.1 L MCV 88 MCH 30.5 MCHC 34.5 RDW 15.6 H Plt Count 75 L Seg Neutrophils % 68.8 Lymphocytes % 21.5 Monocytes % 8.1 Eosinophils % 0.8 Basophils % 0.8 Absolute Neutrophils 9.7 H Absolute Lymphocytes 3.0 Absolute Monocytes 1.1 Absolute Eosinophils 0.1 Absolute Basophils 0.1 Sodium Potassium Chloride Carbon Dioxide Anion Gap BUN Creatinine Est GFR ( Amer) Est GFR (Non-Af Amer) Glucose Calcium Magnesium TSH Free T4 Free T3 pg/mL Impressions: Chest X-Ray 09/22/18 19:19 IMPRESSION: No interval change in the chest. No acute findings. Pleural thickening in the left upper lateral chest is most likely related to the rib deformity. GI Bleed Scan Nuclear Medicine 09/23/18 00:00 IMPRESSION: NORMAL RADIONUCLIDE GASTROINTESTINAL BLEEDING STUDY. Assessment & Plan - Diagnosis (1) Anemia associated with acute blood loss Is this a current diagnosis for this admission?: Yes (2) Hepatic cirrhosis Is this a current diagnosis for this admission?: Yes (3) Lower GI bleed Is this a current diagnosis for this admission?: Yes (4) Cirrhosis of liver with ascites Qualifiers: Hepatic cirrhosis type: unspecified hepatic cirrhosis Qualified Code(s): K74.60 - Unspecified cirrhosis of liver; R18.8 - Other ascites; R18.8 - Other ascites Is this a current diagnosis for this admission?: Yes - Time Time Spent with patient: 25-34 minutes - Inpatient Certification Medical Necessity: Need Close Monitoring Due to Risk of Patient Decompensation, Need For IV Fluids, Need For Continuous Telemetry Monitoring, Risk of Complication if Not Cared For in Hospital - Plan Summary Plan Summary: In view of the patient being cirrhotic with ascites, he needs to be in a tertiary facility with good blood bank, GI, Interventional radiologist and good ICU, i recommend transfering him to a tertiary hospital like [facility]. This was discussed with the Hospitalist Dr Stein. I called [facility] transfer and Hospitalist eventually made transfer to the Medical service at [facility]. Patient is stable right now. If bleeds again we may not have all the blood and blood products like platelets available. His platelets have dropped ffom 161 to 75.
[2018-09-23 20:38] LABS: PLATELET COUNT 83 10^3/uL (150-450)
[2018-09-24 00:07] VITALS: BP 123/70
--- NOTE | 2018-09-25 15:14 | Operative Report ---
Nonrecallable Operative Report DATE OF SURGERY: 09/23/18 PREOPERATIVE DIAGNOSIS: GI bleeding POSTOPERATIVE DIAGNOSIS: 1. GI bleeding, without active source identified in the colon. 2. Large amount of old blood in the colon. 3. Poor prep OPERATION: Colonoscopy to the cecum SURGEON: MAEVE SALVADOR ANESTHESIA: LMAC TISSUE REMOVED OR ALTERED: None COMPLICATIONS: None apparent ESTIMATED BLOOD LOSS: Large amount of old blood in the colon PROCEDURE: Procedure in detail: After informed consent was obtained from the patient, he was laid in the left lateral decubitus position. The colonoscope was inserted into the rectum. Immediately there was noted to be a large amount of old blood and stool in the rectum. The scope was pushed up the rectum, sigmoid colon, descending colon, across the transverse colon, down the ascending colon, and into the cecum. The ileocecal valve and appendiceal orifice were identified. The scope was then withdrawn, circumferentially noting the mucosa. The prep was very poor. The patient had stool with old blood throughout the colon. The scope was pulled back, irrigating copious amounts of saline throughout the colon. The scope was brought back past the ascending colon, transverse colon, down the descending colon, sigmoid colon, and into the rectum. No active bleeding could be identified throughout the colon. No large clots were identified, although there was a large amount of old blood and stool. No significant diverticulosis was identified. A retroflexion maneuver was performed in the rectum, noting no enlarged internal hemorrhoids. Air was suctioned from the rectum, the scope was removed from the patient, and the procedure was concluded. All sponge, instrument, and needle counts were correct x2. Condition: Fair.
== END 2018-09-24 01:30 | disposition short-term general hospital (02) | DRG 378 ==
LOC: ER 18:12 → EH 22:09 → 4S 09-23 00:21 → ICU 09-23 11:06
PROVIDERS: ADMIT Emergency Medicine; ATTEND Emergency Medicine
PROC: 30233N1 Transfusion of Nonautologous Red Blood Cells into Peripheral Vein, Percutaneous Approach (ICD-10-PCS; 2018-09-22)
PROC: 30233N1 Transfusion of Nonautologous Red Blood Cells into Peripheral Vein, Percutaneous Approach (ICD-10-PCS; 2018-09-23)
PROC: 0DJD8ZZ Inspection of Lower Intestinal Tract, Via Natural or Artificial Opening Endoscopic (ICD-10-PCS; principal; 2018-09-23 14:00)
DX: K92.1 Melena (principal); D62 Acute posthemorrhagic anemia; D72.829 Elevated white blood cell count, unspecified; I95.9 Hypotension, unspecified; K70.30 Alcoholic cirrhosis of liver without ascites; F10.11 Alcohol abuse, in remission; I10 Essential (primary) hypertension
CPT/HCPCS: 36415; 36430; 45378; 71045; 78278; 80048; 80053; 811; 82272; 83735; 84439; 84443; 84481; 84484; 85025; 85027; 85610; 85730; 86850; 86900; 86901; 86920; 93005; 93010; 99285; A9560; J2250; J2704; J3010; J3480; J3490; J7050; P9016; Q9969; S0164

== ENCOUNTER 2018-10-27 16:44 | Inpatient (IN) | payer MEDICARE, OTHER ==
[2018-10-27] MEDS ORDERED: LIDOCAINE 1% INJ-PF (10 MG/ML) 30 ML SDV ONE (16:59)
--- NOTE | 2018-10-27 17:00 | ER Document Report ---
ED Respiratory Problem - General Mode of Arrival: Wheelchair Information source: Patient TRAVEL OUTSIDE OF THE [place] IN LAST 30 DAYS: No <ESTHELA JENNINGS - Last Filed: 10/27/18 17:45> <SHAI RIGGINS - Last Filed: 10/27/18 18:35> - General Chief Complaint: Shortness Of Breath Stated Complaint: SHORT OF BREATH Time Seen by Provider: 10/27/18 16:49 Notes: 68-year-old male who presents to the emergency department today with complaints of shortness of breath for the last x5 days. Patient had an outpatient x-ray performed just prior to arrival today which showed a nearly completely collapsed right lung. (ESTHELA JENNINGS) - Related Data Allergies/Adverse Reactions: No Known Allergies Allergy (Verified 10/27/18 16:45) Past Medical History - General Information source: Patient, [facility] Records - Social History Smoking Status: Former Smoker Cigarette use (# per day): No Frequency of alcohol use: Heavy - history of heavy abuse, no alcohol in several years Drug Abuse: None Lives with: Family Family History: Reviewed & Not Pertinent, Malignancy - Father with colon cancer in his 50s. - Past Medical History Cardiac Medical History: Reports: Hx Hypertension GI Medical History: Reports: Hx Cirrhosis, Hx Gastroesophageal Reflux Disease Past Surgical History: Reports: Hx Orthopedic Surgery - L arm, Other - Arm orthopedic surgery in the remote past. - Immunizations Hx Diphtheria, Pertussis, Tetanus Vaccination: Yes Hx Pneumococcal Vaccination: 02/09/17 <ESTHELA JENNINGS - Last Filed: 10/27/18 17:45> Review of Systems - Review of Systems Constitutional: No symptoms reported EENT: No symptoms reported Cardiovascular: No symptoms reported Respiratory: See HPI, Short of breath Gastrointestinal: No symptoms reported Genitourinary: No symptoms reported Male Genitourinary: No symptoms reported Musculoskeletal: No symptoms reported Skin: No symptoms reported Hematologic/Lymphatic: No symptoms reported Neurological/Psychological: No symptoms reported -: Yes All other systems reviewed and negative <ESTHELA JENNINGS - Last Filed: 10/27/18 17:45> Physical Exam <ESTHELA JENNINGS - Last Filed: 10/27/18 17:45> - Vital signs Vitals: Pulse BP Pulse Ox 66 114/78 93 10/27/18 16:50 10/27/18 16:50 10/27/18 16:50 - Notes Notes: Physical Exam: General: Alert, appears uncomfortable. HEENT: Normocephalic. Atraumatic. PERRL. Extraocular movements intact. Oropharynx clear. Neck: Supple. Non-tender. Respiratory: No respiratory distress. Absent breath sounds on the right, rales and crackles on the left. Cardiovascular: Regular rate and rhythm. Abdominal: Caput medusa.Normal Bowel Sounds. Back: Non-tender. No deformity or step off. Extremities: Moves all four extremities. Upper extremities: Normal inspection. Normal ROM. Lower extremities: Normal inspection. No edema. Normal ROM. Neurological: Normal cognition. AAOx4. Normal speech. Psychological: Normal affect. Normal Mood. Skin: Warm. Dry. Normal color. (ESTHELA JENNINGS) Course - Laboratory Result Diagrams: 10/27/18 16:57 10/27/18 16:57 <ESTHELA JENNINGS - Last Filed: 10/27/18 17:45> - Laboratory Result Diagrams: 10/27/18 16:57 10/27/18 16:57 - Diagnostic Test Radiology reviewed: Image reviewed, Reports reviewed - Large right pneumothorax, COPD, left pleural scarring. - EKG Interpretation by Nh EKG shows normal: Sinus rhythm, Gering, QRS Complexes, ST-T Waves. abnormal: Intervals - Borderline prolonged QT interval Rate: Normal - 73 Rhythm: NSR - Consults Dr. Smith Time consulted: 16:45 Consulted provider: will come to ER <SHAI RIGGINS - Last Filed: 10/27/18 18:35> - Vital Signs Vital signs: Temp Pulse Resp BP Pulse Ox 66 114/78 93 10/27/18 16:50 10/27/18 16:50 10/27/18 16:50 - Laboratory Laboratory results interpreted by ok: 10/27/18 10/27/18 10/27/18 16:57 16:57 16:57 RDW 17.4 H Plt Count 101 L Seg Neutrophils % 40.4 L Eosinophils % 8.3 H PT 16.3 H Total Bilirubin 2.2 H Direct Bilirubin 0.6 H AST 68 H Creatine Kinase 50 L Critical Care Note - Critical Care Note Total time excluding time spent on procedures (mins): 30 <SHAI RIGGINS - Last Filed: 10/27/18 18:35> Discharge <ESTHELA JENNINGS - Last Filed: 10/27/18 17:45> - Discharge Admitting Provider: Surgicalist Unit Admitted: Telemetry <SHAI RIGGINS - Last Filed: 10/27/18 18:35> - Discharge Clinical Impression: Pneumothorax on right, Thrombocytopenia Hepatic cirrhosis Qualifiers: Hepatic cirrhosis type: other cirrhosis Qualified Code(s): K74.69 - Other cirrhosis of liver Condition: Stable Disposition: ADMITTED INPATIENT Referrals: ISIS GÓMEZ MD [NO LOCAL MD] - Follow up as needed Scribe Attestation: 10/27/18 18:26 I personally performed the services described in the documentation, reviewed and edited the documentation which was dictated to the scribe in my presence, and it accurately records my words and actions. (SHAI RIGGINS) Scribe Documentation - Scribe Written by Scribe:: Cheryl Trevino, 10/27/2018 1700 acting as scribe for :: Jannie <ESTHELA JENNINGS - Last Filed: 10/27/18 17:45>
[2018-10-27 17:07] LABS: ABSOLUTE BASOPHILS # (AUTO) 0.1 10^3/uL (0.0-0.2); ABSOLUTE EOSINOPHILS # (AUTO) 0.4 10^3/uL (0.0-0.6); ABSOLUTE MONOCYTES (AUTO) 0.5 10^3/uL (0.1-1.4); BASOPHILS % (AUTO) 1.2 % (0-2); EOSINOPHILS % (AUTO) 8.3 % (0-6); HEMATOCRIT 41.2 % (37.9-51.0); HEMOGLOBIN 14.4 g/dL (13.5-17.0); LYMPHOCYTES % (AUTO) 40.6 % (13-45); MEAN CORPUSCULAR HGB CONC 34.9 g/dL (32.0-36.0); MEAN CORPUSCULAR VOLUME 86 fl (80-97); MONOCYTES % (AUTO) 9.5 % (3-13); PLATELET COUNT 101 10^3/uL (150-450); RED BLOOD COUNT 4.79 10^6/uL (4.35-5.55); RED CELL DISTRIBUTION WIDTH 17.4 % (11.5-14.0); SEGMENTED NEUTROPHILS % (AUTO) 40.4 % (42-78); TOTAL CELLS COUNTED % (AUTO) 100 %
[2018-10-27 17:28] LABS: INTERNATIONAL RATION (INR) 1.25; PROTHROMBIN TIME 16.3 SEC (11.4-15.4)
[2018-10-27 17:31] LABS: ALANINE AMINOTRANSFERASE 21 U/L (21-72); ALBUMIN 4.1 g/dL (3.5-5.0); ALKALINE PHOSPHATASE 96 U/L (38-126); ANION GAP 7 (5-19); ASPARTATE AMINO TRANSFERASE 68 U/L (17-59); BILIRUBIN,DIRECT 0.6 mg/dL (0.0-0.4); BILIRUBIN,TOTAL 2.2 mg/dL (0.2-1.3); BLOOD UREA NITROGEN 16 mg/dL (7-20); CALCIUM 9.4 mg/dL (8.4-10.2); CARBON DIOXIDE 27 mmol/L (22-30); CHLORIDE 106 mmol/L (98-107); CREATINE KINASE 50 U/L (55-170); GLUCOSE 108 mg/dL (75-110); POTASSIUM 4.8 mmol/L (3.6-5.0); SODIUM 140.1 mmol/L (137-145); TOTAL PROTEIN 7.5 g/dL (6.3-8.2)
--- NOTE | 2018-10-27 17:33 | Operative Report ---
Nonrecallable Operative Report DATE OF SURGERY: 10/27/18 PREOPERATIVE DIAGNOSIS: right spontaneous pneumothorax POSTOPERATIVE DIAGNOSIS: same OPERATION: right thoracostomy tuibe [place] SURGEON: FELICIA VEGA ANESTHESIA: Local TISSUE REMOVED OR ALTERED: n/a COMPLICATIONS: n/a ESTIMATED BLOOD LOSS: < 1 mL INTRAOPERATIVE FINDINGS: gush of air heard after insertion of the right thoracostomy tube PROCEDURE: see dictation
[2018-10-27 17:41] LABS: CREATINE KINASE MB 1.23 ng/mL (<4.55)
[2018-10-27 17:42] LABS: TROPONIN I < 0.012 ng/mL
--- NOTE | 2018-10-27 17:45 | RADIOLOGY REPORT (SQ) ---
EXAM DESCRIPTION: CHEST SINGLE VIEW COMPLETED DATE/TIME: 10/27/2018 5:33 pm REASON FOR STUDY: CHEST TUBE PLACEMENT COMPARISON: AP chest 10/27/2018, 09/22/2018 EXAM PARAMETERS: NUMBER OF VIEWS: One view. TECHNIQUE: Single frontal radiographic view of the chest acquired. RADIATION DOSE: NA LIMITATIONS: None. FINDINGS: LUNGS AND PLEURA: Interval placement of a right lung apical Heimlich tube, with resolved r ight pneumothorax. There is persistent collapse of the right middle and lower lobe. No right pleural effusion. Left lung well inflated and clear. MEDIASTINUM AND HILAR STRUCTURES: No masses. Contour normal. HEART AND VASCULAR STRUCTURES: Heart normal in size. Normal vasculature. BONES: Old left upper rib fractures HARDWARE: Right apical Heimlich tube OTHER: No other significant finding. IMPRESSION: Interval placement of small bore right chest tube in the upper right hemithorax. Right pneumothorax has resolved. Complete collapse right middle and lower lobe. TECHNICAL DOCUMENTATION: JOB ID: [id number] [employer]- All Rights Reserved Reading location - IP/workstation name: [email or web address]
--- NOTE | 2018-10-27 18:10 | PDOC H&P ---
History of Present Illness Admission Date/PCP: 10/27/18 Patient complains of: Shortness of breath History of Present Illness: SLOANE SIMON III is a 68 year old male with HCV infection, liver cirrhosis, s/p TIPS at [facility] on 09/27/18. He has been c/o SOB x 1 week, he saw his retention manager today and a Chest Xray was ordered which demonstrated an 80% collapsed right lung. Past Medical History Cardiac Medical History: Reports: Hypertension GI Medical History: Reports: Cirrhosis, Gastroesophageal Reflux Disease Hematology: Denies: Anemia, Bleeding Tendencies Past Surgical History Past Surgical History: Reports: Orthopedic Surgery - L arm, Other - Arm orthopedic surgery in the remote past. Social History Lives with: Family Smoking Status: Current Every Day Smoker Frequency of Alcohol Use: Heavy - but quit, was drinking 7-10 beers/day Hx Recreational Drug Use: Yes - no IVDA, afraid of needles Drugs: Marijuana Hx Prescription Drug Abuse: No Family History Family History: Reviewed & Not Pertinent, Malignancy - Father with colon cancer in his 50s. Parental Family History Reviewed: No Children Family History Reviewed: No Sibling(s) Family History Reviewed.: No Medication/Allergy Home Medications: Multivitamin [Multivitamins] 1 tab PO DAILY 03/03/17 Omeprazole 20 mg PO DAILY 03/03/17 Docusate Sodium [Colace 100 mg Capsule] 100 mg PO BID #60 capsule 03/13/17 Ferrous Sulfate [Feosol 325 mg Tablet] 325 mg PO MEALS #90 tablet 03/13/17 Fish Oil/Dha/Epa [Fish Oil 1,200 mg Fish Oil] 2,400 mg PO QPM 09/23/18 Propranolol HCl [Inderal 10 mg Tablet] 20 mg PO QHS 09/23/18 Propranolol HCl [Inderal 10 mg Tablet] 30 mg PO QAM 09/23/18 Allergies/Adverse Reactions: No Known Allergies Allergy (Verified 10/27/18 16:45) Physical Exam Vital Signs: Temp Pulse Resp BP Pulse Ox 66 114/78 93 10/27/18 16:50 10/27/18 16:50 10/27/18 16:50 Intake & Output 10/26/18 10/27/18 10/28/18 06:59 06:59 06:59 Weight 77.3 kg General appearance: PRESENT: mild distress Head exam: PRESENT: atraumatic Eye exam: PRESENT: EOMI Mouth exam: PRESENT: dry mucosa, neck supple Neck exam: PRESENT: full ROM Cardiovascular exam: PRESENT: other - no breath sounds on the Left GI/Abdominal exam: PRESENT: soft Rectal exam: PRESENT: deferred Skin exam: PRESENT: warm Results Laboratory Results: 10/27/18 16:57 10/27/18 16:57 10/27/18 10/27/18 16:57 16:57 WBC 5.0 RBC 4.79 Hgb 14.4 Hct 41.2 MCV 86 MCH 30.0 MCHC 34.9 RDW 17.4 H Plt Count 101 L Seg Neutrophils % 40.4 L Lymphocytes % 40.6 Monocytes % 9.5 Eosinophils % 8.3 H Basophils % 1.2 Absolute Neutrophils 2.0 Absolute Lymphocytes 2.0 Absolute Monocytes 0.5 Absolute Eosinophils 0.4 Absolute Basophils 0.1 Sodium 140.1 Potassium 4.8 Chloride 106 Carbon Dioxide 27 Anion Gap 7 BUN 16 Creatinine 0.78 Est GFR ( Amer) > 60 Est GFR (Non-Af Amer) > 60 Glucose 108 Calcium 9.4 Total Bilirubin 2.2 H AST 68 H ALT 21 Alkaline Phosphatase 96 Total Protein 7.5 Albumin 4.1 10/27/18 10/27/18 16:57 16:57 Creatine Kinase 50 L CK-MB (CK-2) 1.23 Troponin I < 0.012 Impressions: Chest X-Ray 10/27/18 00:00 IMPRESSION: Interval placement of small bore right chest tube in the upper right hemithorax. Right pneumothorax has resolved. Complete collapse right middle and lower lobe. 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
[2018-10-27] MEDS ORDERED: NORMAL SALINE 1000 ML 1,000 ML IV ONE (18:45)
--- NOTE | 2018-10-27 18:52 | PDOC CONSULTATION ---
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 At his primary lawyer criminal office patient found to have spontaneous pneumothorax with 80% collapse of his lung. At ER Dr. Smith put chest drainage. The hospitalist service consulted for comanagement of his medical problems. Past Medical History Cardiac Medical History: Reports: Hypertension GI Medical History: Reports: Cirrhosis, Gastroesophageal Reflux Disease Hematology: Denies: Anemia, Bleeding Tendencies Past Surgical History Past Surgical History: Reports: Orthopedic Surgery - L arm, Other - Arm orthopedic surgery in the remote past. Social History Lives with: Family Smoking Status: Current Every Day Smoker Frequency of Alcohol Use: Heavy - but quit, was drinking 7-10 beers/day Hx Recreational Drug Use: Yes - no IVDA, afraid of needles Drugs: Marijuana Hx Prescription Drug Abuse: No Family History Family History: Reviewed & Not Pertinent, Malignancy - Father with colon cancer in his 50s. Parental Family History Reviewed: Yes Children Family History Reviewed: Yes Sibling(s) Family History Reviewed.: Yes Medication/Allergy Home Medications: Multivitamin [Multivitamins] 1 tab PO DAILY 03/03/17 Omeprazole 20 mg PO DAILY 03/03/17 Docusate Sodium [Colace 100 mg Capsule] 100 mg PO BID #60 capsule 03/13/17 Ferrous Sulfate [Feosol 325 mg Tablet] 325 mg PO MEALS #90 tablet 03/13/17 Fish Oil/Dha/Epa [Fish Oil 1,200 mg Fish Oil] 2,400 mg PO QPM 09/23/18 Propranolol HCl [Inderal 10 mg Tablet] 20 mg PO QHS 09/23/18 Propranolol HCl [Inderal 10 mg Tablet] 30 mg PO QAM 09/23/18 Allergies/Adverse Reactions: No Known Allergies Allergy (Verified 10/27/18 16:45) Review of Systems Constitutional: PRESENT: as per HPI Cardiovascular: ABSENT: chest pain, dyspnea on exertion, edema, orthropnea, palpitations Gastrointestinal: ABSENT: abdominal pain, constipation, diarrhea, hematemesis, hematochezia, nausea, vomiting Neurological: ABSENT: abnormal gait, abnormal speech, confusion, dizziness, focal weakness, syncope Physical Exam Vital Signs: Temp Pulse Resp BP Pulse Ox 66 114/78 93 10/27/18 16:50 10/27/18 16:50 10/27/18 16:50 Intake & Output 10/26/18 10/27/18 10/28/18 06:59 06:59 06:59 Weight 77.3 kg General appearance: PRESENT: no acute distress Head exam: PRESENT: atraumatic Neck exam: ABSENT: carotid bruit, JVD, lymphadenopathy, thyromegaly Respiratory exam: PRESENT: decreased breath sounds - Right lung Cardiovascular exam: PRESENT: RRR. ABSENT: diastolic murmur, rubs, systolic murmur GI/Abdominal exam: PRESENT: other - Caput medusae Neurological exam: PRESENT: alert, awake Results Laboratory Results: 10/27/18 16:57 10/27/18 16:57 10/27/18 10/27/18 16:57 16:57 WBC 5.0 RBC 4.79 Hgb 14.4 Hct 41.2 MCV 86 MCH 30.0 MCHC 34.9 RDW 17.4 H Plt Count 101 L Seg Neutrophils % 40.4 L Lymphocytes % 40.6 Monocytes % 9.5 Eosinophils % 8.3 H Basophils % 1.2 Absolute Neutrophils 2.0 Absolute Lymphocytes 2.0 Absolute Monocytes 0.5 Absolute Eosinophils 0.4 Absolute Basophils 0.1 Sodium 140.1 Potassium 4.8 Chloride 106 Carbon Dioxide 27 Anion Gap 7 BUN 16 Creatinine 0.78 Est GFR ( Amer) > 60 Est GFR (Non-Af Amer) > 60 Glucose 108 Calcium 9.4 Total Bilirubin 2.2 H AST 68 H ALT 21 Alkaline Phosphatase 96 Total Protein 7.5 Albumin 4.1 10/27/18 10/27/18 16:57 16:57 Creatine Kinase 50 L CK-MB (CK-2) 1.23 Troponin I < 0.012 Impressions: Chest X-Ray 10/27/18 00:00 IMPRESSION: Interval placement of small bore right chest tube in the upper right hemithorax. Right pneumothorax has resolved. Complete collapse right middle and lower lobe. Assessment & Plan - Diagnosis (1) Pneumothorax on right Is this a current diagnosis for this admission?: Yes Plan: Acute spontaneous pneumothorax status post chest drainage. (2) Hypertension Qualifiers: Hypertension type: essential hypertension Qualified Code(s): I10 - Essential (primary) hypertension Is this a current diagnosis for this admission?: Yes Plan: Continue home medication (3) Cirrhosis of liver with ascites Qualifiers: Hepatic cirrhosis type: unspecified hepatic cirrhosis Qualified Code(s): K74.60 - Unspecified cirrhosis of liver; R18.8 - Other ascites; R18.8 - Other ascites Is this a current diagnosis for this admission?: Yes Plan: Compensated
[2018-10-27] MEDS ORDERED: MORPHINE SULFATE 10 MG/ML INJ IV PRN (20:21)
[2018-10-27] MEDS ORDERED: LACTULOSE SYRUP 20 GM/30 ML UDCUP PO ONE (21:25)
[2018-10-27] MEDS: NORMAL SALINE 1000 ML 1,000 ML IV PRN (21:31)
[2018-10-27] MEDS ORDERED: PROPRANOLOL HCL 10 MG TABLET PO SCH (22:00)
--- NOTE | 2018-10-28 04:37 | OPERATIVE REPORT E ---
Operative Report NAME: SLOANE SIMON III : 1950 AGE: 68Y DATE OF SURGERY: 10/27/2018 ROOM: 401 PREOPERATIVE DIAGNOSIS: RIGHT PNEUMOTHORAX, SPONTANEOUS. POSTOPERATIVE DIAGNOSIS: RIGHT PNEUMOTHORAX, SPONTANEOUS. OPERATION: Placement of right thoracostomy tube. SURGEON: FELICIA VEGA M.D. CONGRESSIONAL DISTRICT AIDE: None. BLEEDING: None. COMPLICATIONS: None. ANESTHESIA: 10 mL of 1% lidocaine without epinephrine FLUIDS: None available. INDICATION AND FINDINGS: This is a 68-year-old male with a history of cirrhosis secondary to C hepatitis who underwent a TIPS procedure back on 09/27/2018 at [facility]. The patient has been complaining of shortness of breath for about 1 week. He was seen by his cytotechnologist/cytology supervisor today, who ordered a chest x-ray because of the patient's complaints of shortness of breath. The chest x-ray yielded a large pneumothorax on the right side. A decision was made to put a chest tube in the right side. The procedure, risks, benefits, and complications explained to the patient. He understands and decides to proceed. PROCEDURE: The procedure was done in the operating room. The patient was placed in a semi-Gama position. The right upper chest prepped and draped in usual fashion. The area located along the second intercostal space along the midclavicular line was chosen, infiltrated with lidocaine. A stab wound was made at the level of the second intercostal space following local anesthesia with 1% lidocaine without epinephrine, and a 16-gauge needle was inserted through the skin, the muscle planes, into the right thoracic cavity. A gush of air was heard. The trocar was pulled back as the catheter was fully advanced, and secured to the skin with a silk suture and connected to an intermittent valve and Pleur-Evac, with good fluctuation of the air chamber fluid within the Pleur-Evac, and no air leak was noted. The catheter was secured to the skin with silk sutures. Sterile dressings applied. The patient tolerated the procedure well. A chest x-ray was obtained to confirm position of the chest tube. DICTATING PHYSICIAN: FELICIA VEGA M.D. [id number] PHY#: [id number] ID: [id number] JOB#: [id number] ACCT: [id number] cc:FELICIA VEGA M.D. > DERICK
[2018-10-28 05:49] LABS: ABSOLUTE EOSINOPHILS # (AUTO) 0.3 10^3/uL (0.0-0.6); ABSOLUTE LYMPHOCYTES (AUTO) 1.5 10^3/uL (0.5-4.7); ABSOLUTE MONOCYTES (AUTO) 0.3 10^3/uL (0.1-1.4); ABSOLUTE NEUT (AUTO) 2.3 10^3/uL (1.7-8.2); BASOPHILS % (AUTO) 0.9 % (0-2); EOSINOPHILS % (AUTO) 6.3 % (0-6); HEMATOCRIT 33.9 % (37.9-51.0); MEAN CORPUSCULAR HEMOGLOBIN 30.4 pg (27.0-33.4); MEAN CORPUSCULAR HGB CONC 35.5 g/dL (32.0-36.0); MEAN CORPUSCULAR VOLUME 86 fl (80-97); MONOCYTES % (AUTO) 6.9 % (3-13); RED BLOOD COUNT 3.96 10^6/uL (4.35-5.55); RED CELL DISTRIBUTION WIDTH 17.6 % (11.5-14.0); SEGMENTED NEUTROPHILS % (AUTO) 51.9 % (42-78); TOTAL CELLS COUNTED % (AUTO) 100 %; WHITE BLOOD COUNT 4.3 10^3/uL (4.0-10.5)
[2018-10-28 06:06] LABS: APPEARANCE,URINE SLIGHTLY-CLOUDY; BILIRUBIN,URINE SMALL (NEGATIVE); COLOR,URINE AMBER; GLUCOSE, URINE NEGATIVE (NEGATIVE); KETONES,URINE TRACE mg/dL (NEGATIVE); LEUKOCYTE ESTERASE,URINE NEGATIVE (NEGATIVE); NITRITE,URINE NEGATIVE (NEGATIVE); PROTEIN,URINE 30 mg/dL (NEGATIVE); URINE SPECIFIC GRAVITY 1.028
[2018-10-28 06:11] LABS: ALANINE AMINOTRANSFERASE 29 U/L (21-72); ALBUMIN 2.7 g/dL (3.5-5.0); ALKALINE PHOSPHATASE 65 U/L (38-126); ANION GAP 5 (5-19); ASPARTATE AMINO TRANSFERASE 42 U/L (17-59); BILIRUBIN,DIRECT 0.3 mg/dL (0.0-0.4); BILIRUBIN,TOTAL 1.6 mg/dL (0.2-1.3); BLOOD UREA NITROGEN 15 mg/dL (7-20); CALCIUM 8.2 mg/dL (8.4-10.2); CARBON DIOXIDE 22 mmol/L (22-30); CHLORIDE 112 mmol/L (98-107); GLUCOSE 64 mg/dL (75-110); SODIUM 139.4 mmol/L (137-145); TOTAL PROTEIN 5.3 g/dL (6.3-8.2)
[2018-10-28 06:18] LABS: PLATELET COUNT 73 10^3/uL (150-450)
[2018-10-28 06:19] LABS: POTASSIUM 3.8 mmol/L (3.6-5.0)
[2018-10-28] MEDS: NORMAL SALINE 1000 ML 1,000 ML IV PRN (07:39)
--- NOTE | 2018-10-28 08:50 | PDOC PROGRESS REPORT ---
Subjective Progress Note for:: 10/28/18 Subjective:: comfortable, no SOB Reason For Visit: R SIDE PNEUNO Physical Exam Vital Signs: Temp Pulse Resp BP Pulse Ox 98.4 F 69 20 111/59 L 92 10/28/18 03:13 10/28/18 07:00 10/28/18 03:13 10/28/18 03:13 10/28/18 03:13 Intake & Output 10/27/18 10/28/18 10/29/18 06:59 06:59 06:59 Intake Total 1236 1000 Output Total 350 Balance 886 1000 Weight 83.2 kg Respiratory exam: PRESENT: clear to auscultation branden, other - right anterior chest tube in place, no air leak Results Laboratory Results: 10/28/18 04:38 10/28/18 04:38 10/27/18 10/27/18 10/28/18 16:57 16:57 04:38 WBC 5.0 4.3 RBC 4.79 3.96 L Hgb 14.4 12.0 L D Hct 41.2 33.9 L MCV 86 86 MCH 30.0 30.4 MCHC 34.9 35.5 RDW 17.4 H 17.6 H Plt Count 101 L 73 L Seg Neutrophils % 40.4 L 51.9 Lymphocytes % 40.6 34.0 Monocytes % 9.5 6.9 Eosinophils % 8.3 H 6.3 H Basophils % 1.2 0.9 Absolute Neutrophils 2.0 2.3 Absolute Lymphocytes 2.0 1.5 Absolute Monocytes 0.5 0.3 Absolute Eosinophils 0.4 0.3 Absolute Basophils 0.1 0.0 Sodium 140.1 Potassium 4.8 Chloride 106 Carbon Dioxide 27 Anion Gap 7 BUN 16 Creatinine 0.78 Est GFR ( Amer) > 60 Est GFR (Non-Af Amer) > 60 Glucose 108 Calcium 9.4 Total Bilirubin 2.2 H AST 68 H ALT 21 Alkaline Phosphatase 96 Total Protein 7.5 Albumin 4.1 Urine Color Urine Appearance Urine pH Ur Specific [place] Urine Protein Urine Glucose (UA) Urine Ketones Urine Blood Urine Nitrite Ur Leukocyte Esterase Urine WBC (Auto) Urine RBC (Auto) 10/28/18 10/28/18 04:38 05:50 WBC RBC Hgb Hct MCV MCH MCHC RDW Plt Count Seg Neutrophils % Lymphocytes % Monocytes % Eosinophils % Basophils % Absolute Neutrophils Absolute Lymphocytes Absolute Monocytes Absolute Eosinophils Absolute Basophils Sodium 139.4 Potassium 3.8 D Chloride 112 H Carbon Dioxide 22 Anion Gap 5 BUN 15 Creatinine 0.56 Est GFR ( Amer) > 60 Est GFR (Non-Af Amer) > 60 Glucose 64 L Calcium 8.2 L Total Bilirubin 1.6 H AST 42 ALT 29 Alkaline Phosphatase 65 Total Protein 5.3 L Albumin 2.7 L Urine Color JOVANNI Urine Appearance SLIGHTLY-CLOUDY Urine pH 5.0 Ur Specific [place] 1.028 Urine Protein 30 H Urine Glucose (UA) NEGATIVE Urine Ketones TRACE H Urine Blood NEGATIVE Urine Nitrite NEGATIVE Ur Leukocyte Esterase NEGATIVE Urine WBC (Auto) 1 Urine RBC (Auto) 1 10/27/18 10/27/18 16:57 16:57 Creatine Kinase 50 L CK-MB (CK-2) 1.23 Troponin I < 0.012 Impressions: Chest X-Ray 10/27/18 00:00 IMPRESSION: Interval placement of small bore right chest tube in the upper right hemithorax. Right pneumothorax has resolved. Complete collapse right middle and lower lobe. Assessment & Plan - Diagnosis (1) Pneumothorax on right Is this a current diagnosis for this admission?: Yes (2) Hepatic cirrhosis Qualifiers: Hepatic cirrhosis type: other cirrhosis Qualified Code(s): K74.69 - Other cirrhosis of liver Is this a current diagnosis for this admission?: Yes - Plan Summary Plan Summary: A/ S/p right chest tube placement for right large pneumothorax Pneumothorax resolved after chest tube placement; however, the right middle and lower lobe are collapsed Chest Xray pending today Pulmonary consultation requested for possible bronchoscopy Npo air leak noted in Pleurovac canester P/ Patient can be discharged to home with Heilmich valve once right lung is fully expanded as per Pulmonary Resume diet after Dr. Morris evaluation today
--- NOTE | 2018-10-28 09:18 | EKG REPORT ---
SEVERITY:- BORDERLINE ECG - SINUS RHYTHM BORDERLINE PROLONGED QT INTERVAL : Confirmed by: Js Wood 28-Oct-2018 09:18:21
[2018-10-28] MEDS ORDERED: POLYETHYLENE GLYCOL 3350 POWDER 17 GM/1 PACKET PO SCH (10:00)
[2018-10-28] MEDS ORDERED: DOCUSATE SODIUM 100 MG CAPSULE PO SCH (10:00)
[2018-10-28] MEDS ORDERED: PROPRANOLOL HCL 10 MG TABLET PO SCH (10:00)
--- NOTE | 2018-10-28 10:06 | RADIOLOGY REPORT (SQ) ---
EXAM DESCRIPTION: CHEST SINGLE VIEW COMPLETED DATE/TIME: 10/28/2018 9:46 am REASON FOR STUDY: right chest tube COMPARISON: 10/27/2018 and 09/22/2018. EXAM PARAMETERS: NUMBER OF VIEWS: One view. TECHNIQUE: Single frontal radiographic view of the chest acquired. RADIATION DOSE: NA LIMITATIONS: None. FINDINGS: LUNGS AND PLEURA: No pneumothorax. Chronic interstitial changes. Stable bleb in the medi al right upper lobe. Stable pleural thickening in the upper left chest. MEDIASTINUM AND HILAR STRUCTURES: No masses. Contour normal. HEART AND VASCULAR STRUCTURES: Heart normal in size. Normal vasculature. BONES: No acute findings. Old fractures of the left rib and scapula. HARDWARE: Stable chest tube. OTHER: No other significant finding. IMPRESSION: STABLE CHRONIC CHANGES. STABLE CHEST TUBE. NO PNEUMOTHORAX. TECHNICAL DOCUMENTATION: JOB ID: [id number] [employer]- All Rights Reserved Reading location - IP/workstation name: [email or web address]
--- NOTE | 2018-10-28 12:13 | PDOC CONSULTATION ---
Consultation Consult Date: 10/28/18 Attending physician:: FELICIA VEGA Consult reason:: Right-sided pneumothorax History of Present Illness Admission Date/PCP: 10/27/18 18:33 History of Present Illness: SLOANE SIMON III is a 68 year old male presented to emergency room after 3 days of progressive shortness of breath and some tightness in his chest subsequent x-ray revealed that he had a right-sided pneumothorax and he was given an anterior chest tube by Dr. Vega. After initial reinflation of the chest tube it appeared he still has some right lower lobe atelectasis. 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 Mild thank has been recommended his weight is scared Of some Past Medical History Cardiac Medical History: Reports: Hypertension Pulmonary Medical History: Reports: Chronic Obstructive Pulmonary Disease (COPD) Denies: Intubation, Sleep Apnea, Tuberculosis EENT Medical History: Denies: Cataracts Neurological Medical History: Denies: Hemorrhagic CVA, Ischemic CVA, Migraine, Multiple Sclerosis, Seizures GI Medical History: Reports: Cirrhosis, Gastroesophageal Reflux Disease Hematology: Denies: Anemia, Bleeding Tendencies Past Surgical History Past Surgical History: Reports: Orthopedic Surgery - L arm, Other - Arm orthopedic surgery in the remote past. 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 Lives with: Family Smoking Status: Former Smoker Cigarettes Packs Per Day: 35 Number of Years Smokin Last Time Smoked: 05/12/2005 Passive smoke exposure as: Child, Adult, Both Frequency of Alcohol Use: None Hx Recreational Drug Use: No Drugs: None Hx Prescription Drug Abuse: No Do you have pets?: Yes Have you had any respiratory illnesses as a child?: No Have you been exposed to any sick contacts recently?: No Have you had any recent respiratory illnesses?: Yes Have you travelled outside of [place] in the past 12 months?: No - Advance Directive Resuscitation Status: Full Code Family History Family History: CAD, Malignancy - Father with colon cancer in his 50s. Parental Family History Reviewed: Yes Children Family History Reviewed: Yes Sibling(s) Family History Reviewed.: Yes Medication/Allergy Home Medications: Docusate Sodium [Colace 100 mg Capsule] 100 mg PO BID 10/27/18 Polyethylene Glycol 3350 [Miralax Powder 17 gm/Packet] 17 gm PO DAILY 10/27/18 Propranolol HCl [Inderal 10 mg Tablet] 20 mg PO QHS 10/27/18 Propranolol HCl [Inderal 10 mg Tablet] 30 mg PO DAILY 10/27/18 Allergies/Adverse Reactions: No Known Allergies Allergy (Verified 10/27/18 16:45) Review of Systems Constitutional: ABSENT: chills, headache(s), weight gain Eyes: ABSENT: visual disturbances Ears: ABSENT: hearing changes Nose, Mouth, and Throat: ABSENT: mouth pain, sore throat Cardiovascular: PRESENT: dyspnea on exertion Respiratory: PRESENT: dyspnea. ABSENT: hemoptysis Gastrointestinal: ABSENT: abdominal pain, coffee ground emesis, dysphagia, hematemesis, hematochezia Genitourinary: PRESENT: as per HPI Musculoskeletal: ABSENT: deformity Integumentary: ABSENT: pruritus, rash Neurological: PRESENT: convulsions. ABSENT: abnormal gait, abnormal movements, abnormal speech, confusion, memory loss, numbness, paresthesias Psychiatric: ABSENT: hallucinations, homidical ideation, suicidal ideation Endocrine: ABSENT: cold intolerance, heat intolerance, polydipsia Hematologic/Lymphatic: ABSENT: easy bruising, lymphadenopathy Allergic/Immunologic: ABSENT: seasonal rhinorrhea Physical Exam Vital Signs: Temp Pulse Resp BP Pulse Ox 98.1 F 68 16 112/51 L 96 10/28/18 08:04 10/28/18 08:04 10/28/18 08:04 10/28/18 08:04 10/28/18 08:04 Intake & Output 01/16/19 01/17/19 01/18/19 06:59 06:59 06:59 Intake Total 1236 1000 Output Total 350 Balance 886 1000 Weight 83.2 kg General appearance: PRESENT: no acute distress, cooperative, disheveled, well- developed, well-nourished Head exam: PRESENT: atraumatic, normocephalic Eye exam: PRESENT: conjunctiva pale. ABSENT: nystagmus, periorbital swelling Mouth exam: PRESENT: dry mucosa, neck supple Neck exam: ABSENT: carotid bruit, JVD, lymphadenopathy, thyromegaly, tracheal deviation, tracheostomy Respiratory exam: PRESENT: decreased breath sounds, prolonged expiratory phas Results Laboratory Results: 10/28/18 04:38 10/28/18 04:38 10/27/18 10/27/18 10/28/18 16:57 16:57 04:38 WBC 5.0 4.3 RBC 4.79 3.96 L Hgb 14.4 12.0 L D Hct 41.2 33.9 L MCV 86 86 MCH 30.0 30.4 MCHC 34.9 35.5 RDW 17.4 H 17.6 H Plt Count 101 L 73 L Seg Neutrophils % 40.4 L 51.9 Lymphocytes % 40.6 34.0 Monocytes % 9.5 6.9 Eosinophils % 8.3 H 6.3 H Basophils % 1.2 0.9 Absolute Neutrophils 2.0 2.3 Absolute Lymphocytes 2.0 1.5 Absolute Monocytes 0.5 0.3 Absolute Eosinophils 0.4 0.3 Absolute Basophils 0.1 0.0 Sodium 140.1 Potassium 4.8 Chloride 106 Carbon Dioxide 27 Anion Gap 7 BUN 16 Creatinine 0.78 Est GFR ( Amer) > 60 Est GFR (Non-Af Amer) > 60 Glucose 108 Calcium 9.4 Total Bilirubin 2.2 H AST 68 H ALT 21 Alkaline Phosphatase 96 Total Protein 7.5 Albumin 4.1 Urine Color Urine Appearance Urine pH Ur Specific [place] Urine Protein Urine Glucose (UA) Urine Ketones Urine Blood Urine Nitrite Ur Leukocyte Esterase Urine WBC (Auto) Urine RBC (Auto) 10/28/18 10/28/18 04:38 05:50 WBC RBC Hgb Hct MCV MCH MCHC RDW Plt Count Seg Neutrophils % Lymphocytes % Monocytes % Eosinophils % Basophils % Absolute Neutrophils Absolute Lymphocytes Absolute Monocytes Absolute Eosinophils Absolute Basophils Sodium 139.4 Potassium 3.8 D Chloride 112 H Carbon Dioxide 22 Anion Gap 5 BUN 15 Creatinine 0.56 Est GFR ( Amer) > 60 Est GFR (Non-Af Amer) > 60 Glucose 64 L Calcium 8.2 L Total Bilirubin 1.6 H AST 42 ALT 29 Alkaline Phosphatase 65 Total Protein 5.3 L Albumin 2.7 L Urine Color JOVANNI Urine Appearance SLIGHTLY-CLOUDY Urine pH 5.0 Ur Specific [place] 1.028 Urine Protein 30 H Urine Glucose (UA) NEGATIVE Urine Ketones TRACE H Urine Blood NEGATIVE Urine Nitrite NEGATIVE Ur Leukocyte Esterase NEGATIVE Urine WBC (Auto) 1 Urine RBC (Auto) 1 10/27/18 10/27/18 16:57 16:57 Creatine Kinase 50 L CK-MB (CK-2) 1.23 Troponin I < 0.012 Impressions: Chest X-Ray 10/28/18 06:00 IMPRESSION: STABLE CHRONIC CHANGES. STABLE CHEST TUBE. NO PNEUMOTHORAX. Assessment & Plan - Diagnosis (1) Hypertension Qualifiers: Hypertension type: essential hypertension Qualified Code(s): I10 - Essential (primary) hypertension Is this a current diagnosis for this admission?: Yes Plan: Blood pressure stable at this time (2) Pneumothorax on right Is this a current diagnosis for this admission?: Yes Plan: Reviewed x-ray with radiology this morning's x-ray is significantly improved on the initial x-ray right lower lobe atelectasis appears to be resolved at this time think no further intervention with bronchoscopy is necessary
[2018-10-28 14:03] VITALS: BP 115/56
--- NOTE | 2018-10-28 15:43 | PDOC PROGRESS REPORT ---
Subjective Progress Note for:: 10/28/18 Subjective:: Patient seen and examined at bedside. He is awake alert oriented is not in pain or distress. His vital signs and blood works are stable except for his mildly elevated liver enzymes due to his cirrhosis of the liver and hepatitis C. Reason For Visit: R SIDE PNEUNO Physical Exam Vital Signs: Temp Pulse Resp BP Pulse Ox 98.1 F 68 16 115/56 L 96 10/28/18 14:01 10/28/18 14:01 10/28/18 14:01 10/28/18 14:01 10/28/18 14:01 Intake & Output 10/27/18 10/28/18 10/29/18 06:59 06:59 06:59 Intake Total 1236 1000 Output Total 350 Balance 886 1000 Weight 83.2 kg General appearance: PRESENT: no acute distress Eye exam: PRESENT: conjunctiva pink Mouth exam: PRESENT: moist Neck exam: ABSENT: carotid bruit, JVD, lymphadenopathy, thyromegaly Respiratory exam: PRESENT: decreased breath sounds Neurological exam: PRESENT: alert, awake, oriented to time, oriented to situation Results Laboratory Results: 10/28/18 04:38 10/28/18 04:38 10/27/18 10/27/18 10/28/18 16:57 16:57 04:38 WBC 5.0 4.3 RBC 4.79 3.96 L Hgb 14.4 12.0 L D Hct 41.2 33.9 L MCV 86 86 MCH 30.0 30.4 MCHC 34.9 35.5 RDW 17.4 H 17.6 H Plt Count 101 L 73 L Seg Neutrophils % 40.4 L 51.9 Lymphocytes % 40.6 34.0 Monocytes % 9.5 6.9 Eosinophils % 8.3 H 6.3 H Basophils % 1.2 0.9 Absolute Neutrophils 2.0 2.3 Absolute Lymphocytes 2.0 1.5 Absolute Monocytes 0.5 0.3 Absolute Eosinophils 0.4 0.3 Absolute Basophils 0.1 0.0 Sodium 140.1 Potassium 4.8 Chloride 106 Carbon Dioxide 27 Anion Gap 7 BUN 16 Creatinine 0.78 Est GFR ( Amer) > 60 Est GFR (Non-Af Amer) > 60 Glucose 108 Calcium 9.4 Total Bilirubin 2.2 H AST 68 H ALT 21 Alkaline Phosphatase 96 Total Protein 7.5 Albumin 4.1 Urine Color Urine Appearance Urine pH Ur Specific [place] Urine Protein Urine Glucose (UA) Urine Ketones Urine Blood Urine Nitrite Ur Leukocyte Esterase Urine WBC (Auto) Urine RBC (Auto) 10/28/18 10/28/18 04:38 05:50 WBC RBC Hgb Hct MCV MCH MCHC RDW Plt Count Seg Neutrophils % Lymphocytes % Monocytes % Eosinophils % Basophils % Absolute Neutrophils Absolute Lymphocytes Absolute Monocytes Absolute Eosinophils Absolute Basophils Sodium 139.4 Potassium 3.8 D Chloride 112 H Carbon Dioxide 22 Anion Gap 5 BUN 15 Creatinine 0.56 Est GFR ( Amer) > 60 Est GFR (Non-Af Amer) > 60 Glucose 64 L Calcium 8.2 L Total Bilirubin 1.6 H AST 42 ALT 29 Alkaline Phosphatase 65 Total Protein 5.3 L Albumin 2.7 L Urine Color JOVANNI Urine Appearance SLIGHTLY-CLOUDY Urine pH 5.0 Ur Specific [place] 1.028 Urine Protein 30 H Urine Glucose (UA) NEGATIVE Urine Ketones TRACE H Urine Blood NEGATIVE Urine Nitrite NEGATIVE Ur Leukocyte Esterase NEGATIVE Urine WBC (Auto) 1 Urine RBC (Auto) 1 10/27/18 10/27/18 16:57 16:57 Creatine Kinase 50 L CK-MB (CK-2) 1.23 Troponin I < 0.012 Impressions: Chest X-Ray 10/28/18 06:00 IMPRESSION: STABLE CHRONIC CHANGES. STABLE CHEST TUBE. NO PNEUMOTHORAX. Assessment & Plan - Diagnosis (1) Pneumothorax on right Is this a current diagnosis for this admission?: Yes Plan: Acute spontaneous pneumothorax status post chest drainage. (2) Hypertension Qualifiers: Hypertension type: essential hypertension Qualified Code(s): I10 - Essential (primary) hypertension Is this a current diagnosis for this admission?: Yes Plan: Continue home medication (3) Cirrhosis of liver with ascites Qualifiers: Hepatic cirrhosis type: unspecified hepatic cirrhosis Qualified Code(s): K74.60 - Unspecified cirrhosis of liver; R18.8 - Other ascites; R18.8 - Other ascites Is this a current diagnosis for this admission?: Yes Plan: Compensated
--- NOTE | 2018-10-29 13:02 | DISCHARGE SUMMARY E ---
Discharge Summary NAME: SLOANE SIMON III : 1950 AGE: 68Y ADMITTED: 10/27/2018 DISCHARGED: 10/28/2018 FINAL DIAGNOSES: 1. Right pneumothorax. 2. Hepatitis C virus infection. 3. Liver cirrhosis. 4. Status post TIPS procedure. 5. Chest tube placement on 10/27/2018. COMPLICATIONS: None. HOSPITAL COURSE: This is a 68-year-old male with a history of hepatitis C virus infection and liver cirrhosis. He underwent a TIPS procedure at [facility] on 09/27/2018. The procedure was uneventful and the patient was discharged to home. The week prior to the presentation in the emergency room the patient presented with complaints of chest discomfort and difficulty breathing. The patient was seen by his prize coordinator October 27 for followup after his TIPS, and because of shortness of breath a chest x-ray was recommended which revealed a large right pneumothorax without evidence of tension pneumothorax. The patient was sent to the emergency room where he underwent uneventful placement of right chest tube with resolution of the pneumothorax. However, he presented with collapse of the middle and lower lobe on the right side. The patient was admitted for observation and was kept n.p.o. on IV fluids. Pulmonary Service, Dr. Morris, was consulted for possible bronchoscopy, and the following morning the patient underwent a new chest x-ray which revealed complete resolution of the right middle and lower lobe collapse and no evidence of a pneumothorax. The chest tube revealed no air leak in the air/fluid chamber, and the patient was in stable condition. The patient was seen by the organizational effectiveness director who decided not to proceed with a bronchoscopy. At this point the patient was discharged home the same day, October 28. He was given a follow-up appointment in the Surgery Clinic in 2 weeks with the NIKO Green. Chest Xray to be done on the day of the clinic appointlent. He was instructed not to strain or lift any heavy weights more than 10 pounds, no smoking. He was instructed to maintain the Heimlich valve in place. Keep the dressing clean, dry, and intact, sponge bath only. Regular diet, resume home medications. DICTATING PHYSICIAN: FEILCIA VEGA M.D. [id number] PHY#: [id number] ID: [id number] JOB#: [id number] ACCT: [id number] cc:FELICIA VEGA M.D. > DERICK
== END 2018-10-28 14:46 | disposition home or self-care (01) | DRG 201 ==
LOC: ER 16:44 → EH 18:33 → 4N 21:09
PROVIDERS: ADMIT Surgery; ATTEND Surgery
PROC: 0W9930Z Drainage of Right Pleural Cavity with Drainage Device, Percutaneous Approach (ICD-10-PCS; principal; 2018-10-27)
DX: J93.83 Other pneumothorax (principal); K74.69 Other cirrhosis of liver; B18.2 Chronic viral hepatitis C; I10 Essential (primary) hypertension; F17.200 Nicotine dependence, unspecified, uncomplicated; Z95.828 Presence of other vascular implants and grafts
CPT/HCPCS: 36415; 71045; 71046; 80048; 80053; 80076; 81001; 82550; 82553; 84484; 85025; 85610; 85730; 93005; 93010; 99291; J2270; J3490; J7030

== ENCOUNTER → 2018-10-27 | Outpatient (CLI) | payer MEDICARE, OTHER ==
[2018-10-27 16:50] LABS: INTERNATIONAL RATION (INR) 1.28; PROTHROMBIN TIME 16.6 SEC (11.4-15.4)
--- NOTE | 2018-10-27 16:50 | RADIOLOGY REPORT (SQ) ---
EXAM DESCRIPTION: CHEST 2 VIEWS COMPLETED DATE/TIME: 10/27/2018 4:35 pm REASON FOR STUDY: SHORTNESS OF BREATH R06.02 SHORTNESS OF BREATH I85.00 ESOPHAGEAL VARICES WITHOUT BLEEDING COMPARISON: None. NUMBER OF VIEWS: Two view. TECHNIQUE: Frontal and lateral radiographic views of the chest acquired. LIMITATIONS: None. FINDINGS: LUNGS AND PLEURA: Hyperinflation. Large right pneumothorax. Chronic pleural thickening i n the upper left chest. MEDIASTINUM AND HILAR STRUCTURES: No masses. No contour abnormalities. HEART AND VASCULAR STRUCTURES: Heart normal in size and contour. No evidence for failure. BONES: No acute findings. Degenerative changes in the spine. HARDWARE: None in the chest. OTHER: No other significant finding. IMPRESSION: 1. LARGE RIGHT PNEUMOTHORAX. AT THE TIME OF THE EXAM THE PATIENT WAS TAKEN DIRECTLY TO THE EMERGENCY ROOM AND THE EMERGENCY ROOM CHARGE NURSE WAS NOTIFIED THAT THE PATIENT HAD A LARGE PNEUMOTHORAX AND WOULD REQUIRE A CHEST TUBE. 2. COPD. CHRONIC PLEURAL THICKENING IN THE UPPER LEFT CHEST. TECHNICAL DOCUMENTATION: JOB ID: [id number] [employer]- All Rights Reserved Reading location - IP/workstation name: [facility]
[2018-10-27 16:57] LABS: ABSOLUTE BASOPHILS # (AUTO) 0.1 10^3/uL (0.0-0.2); ABSOLUTE EOSINOPHILS # (AUTO) 0.4 10^3/uL (0.0-0.6); ABSOLUTE LYMPHOCYTES (AUTO) 2.1 10^3/uL (0.5-4.7); ABSOLUTE MONOCYTES (AUTO) 0.4 10^3/uL (0.1-1.4); ABSOLUTE NEUT (AUTO) 2.1 10^3/uL (1.7-8.2); BASOPHILS % (AUTO) 1.1 % (0-2); EOSINOPHILS % (AUTO) 8.1 % (0-6); HEMATOCRIT 41.5 % (37.9-51.0); HEMOGLOBIN 14.4 g/dL (13.5-17.0); LYMPHOCYTES % (AUTO) 41.3 % (13-45); MEAN CORPUSCULAR HEMOGLOBIN 30.1 pg (27.0-33.4); MEAN CORPUSCULAR HGB CONC 34.6 g/dL (32.0-36.0); MEAN CORPUSCULAR VOLUME 87 fl (80-97); MONOCYTES % (AUTO) 8.5 % (3-13); PLATELET COUNT 102 10^3/uL (150-450); RED BLOOD COUNT 4.76 10^6/uL (4.35-5.55); RED CELL DISTRIBUTION WIDTH 17.6 % (11.5-14.0); TOTAL CELLS COUNTED % (AUTO) 100 %
[2018-10-27 17:21] LABS: ALANINE AMINOTRANSFERASE 24 U/L (21-72); ALBUMIN 4.1 g/dL (3.5-5.0); ALKALINE PHOSPHATASE 94 U/L (38-126); ANION GAP 7 (5-19); ASPARTATE AMINO TRANSFERASE 55 U/L (17-59); BILIRUBIN,DIRECT 0.4 mg/dL (0.0-0.4); BILIRUBIN,TOTAL 2.1 mg/dL (0.2-1.3); BLOOD UREA NITROGEN 16 mg/dL (7-20); CALCIUM 9.3 mg/dL (8.4-10.2); CARBON DIOXIDE 26 mmol/L (22-30); CHLORIDE 106 mmol/L (98-107); GLUCOSE 108 mg/dL (75-110); POTASSIUM 4.6 mmol/L (3.6-5.0); SODIUM 139.2 mmol/L (137-145); TOTAL PROTEIN 7.3 g/dL (6.3-8.2)
== END ==
LOC: RAD 16:08
PROVIDERS: ATTEND Internal Medicine Gastroenterology
DX: J93.9 Pneumothorax, unspecified (principal); J44.9 Chronic obstructive pulmonary disease, unspecified; R06.02 Shortness of breath; I85.00 Esophageal varices without bleeding
CPT/HCPCS: 36415; 71046; 80048; 80076; 85025; 85610

== ENCOUNTER → 2018-11-10 | Outpatient (CLI) | payer MEDICARE, OTHER ==
--- NOTE | 2018-11-10 12:45 | RADIOLOGY REPORT (SQ) ---
EXAM DESCRIPTION: CHEST SINGLE VIEW COMPLETED DATE/TIME: 11/10/2018 12:36 pm REASON FOR STUDY: PNEUMOTHORAX, UNSPECIFIED COMPARISON: 10/28/2018 EXAM PARAMETERS: NUMBER OF VIEWS: One view. TECHNIQUE: Single frontal radiographic view of the chest acquired. RADIATION DOSE: NA LIMITATIONS: None. FINDINGS: LUNGS AND PLEURA: No pneumothorax. No infiltrate. Calcified granuloma in the left lung. MEDIASTINUM AND HILAR STRUCTURES: No masses. Contour normal. HEART AND VASCULAR STRUCTURES: Heart normal in size. Normal vasculature. BONES: Apparent posttraumatic changes in the left upper thorax. HARDWARE: Small thoracotomy catheter on the right. OTHER: No other significant finding. IMPRESSION: No residual pneumothorax. TECHNICAL DOCUMENTATION: JOB ID: [id number] [employer]- All Rights Reserved Reading location - IP/workstation name: [email or web address]
--- NOTE | 2018-11-10 12:58 | RADIOLOGY REPORT (SQ) ---
EXAM DESCRIPTION: CHEST SINGLE VIEW COMPLETED DATE/TIME: 11/10/2018 12:44 pm REASON FOR STUDY: POST REMOVAL OF CHEST TUBE COMPARISON: None. EXAM PARAMETERS: NUMBER OF VIEWS: One view. TECHNIQUE: Single frontal radiographic view of the chest acquired. RADIATION DOSE: NA LIMITATIONS: None. FINDINGS: LUNGS AND PLEURA: No pneumo thorax. MEDIASTINUM AND HILAR STRUCTURES: No masses. Contour normal. HEART AND VASCULAR STRUCTURES: Heart normal in size. Normal vasculature. BONES: Old traumatic changes in the left upper chest. HARDWARE: Small chest tube has been removed. OTHER: No other significant finding. IMPRESSION: No pneumothorax status post removal of chest tube. TECHNICAL DOCUMENTATION: JOB ID: [id number] [employer]- All Rights Reserved Reading location - IP/workstation name: [email or web address]
== END ==
LOC: OD 11:17
PROVIDERS: ATTEND Surgery
DX: J93.9 Pneumothorax, unspecified (principal)
CPT/HCPCS: 71045

== ENCOUNTER → 2019-04-08 | Outpatient (CLI) | payer MEDICARE, OTHER ==
--- NOTE | 2019-04-08 14:12 | RADIOLOGY REPORT (SQ) ---
EXAM DESCRIPTION: MRI ABDOMEN COMBO COMPLETED DATE/TIME: 04/08/2019 1:49 pm REASON FOR STUDY: K74.69 OTHER CIRRHOSIS OF LIVER K74.69 OTHER CIRRHOSIS OF LIVER K76.6 PORTAL HYP ERTENSION I85.00 ESOPHAGEAL VARICES WITHOUT BLEEDING COMPARISON: 03/01/2018. TECHNIQUE: Multiplanar multisequence imaging performed without and with contrast including sagittal, axial and coronal T2, axial T1, axial gradient fat sat T1, axial, sagittal and coronal fat sat T1 po st contrast. CONTRAST TYPE AND DOSE: 20 mL Dotarem. RENAL FUNCTION: Not indicated. ACR Type II contrast agent associated with few, if any, unconfounded cases of NSF LIMITATIONS: None. FINDINGS: LIVER: Normal size. No masses. No dilated ducts. CBD normal. A TIPS shunt is present. SPLEEN: Mild splenomegaly. No focal lesions. PANCREAS: No masses. No adjacent inflammation or peripancreatic fluid collections. Pancreatic duct no t dilated. GALLBLADDER: No masses. No stones. No gallbladder wall thickening or pericholecystic fluid. ADRENAL GLANDS: No significant masses or asymmetry. RIGHT KIDNEY AND URETER: No masses. No hydronephrosis. LEFT KIDNEY AND URETER: No masses. Chronic hydronephrosis. AORTA AND VESSELS: No aneurysm. No dissection. Renal arteries, SMA, celiac without stenosis. RETROPERITONEUM: No retroperitoneal adenopathy, hemorrhage or masses. BOWEL: No visualized masses. No inflammation. No significant dilatation. ABDOMINAL WALL AND PERITONEUM: Umbilical hernia containing bowel, unchanged. No free fluid. BONES: No acute or significant findings. OTHER: No other significant finding. IMPRESSION: 1. TIPS SHUNT PRESENT IN THE LIVER. NO FOCAL HEPATIC LESIONS OR OTHER FINDINGS IN THE LIVER. 2. MILD SPLENOMEGALY. 3. CHRONIC HYDRONEPHROSIS OF THE LEFT KIDNEY. 4. UMBILICAL HERNIA CONTAINING BOWEL, UNCHANGED FROM PRIOR STUDY. TECHNICAL DOCUMENTATION: JOB ID: [id number] [employer]- All Rights Reserved Reading location - IP/workstation name: [email or web address]
== END ==
LOC: RAD 12:06
PROVIDERS: ATTEND Internal Medicine Gastroenterology
DX: K74.69 Other cirrhosis of liver (principal); K76.6 Portal hypertension; I85.00 Esophageal varices without bleeding
CPT/HCPCS: 82565; 74183; A9576

== ENCOUNTER 2020-09-17 11:01 | Day surgery (SDC) | payer MEDICARE, OTHER ==
[2020-09-17 12:41] LABS: ABSOLUTE EOSINOPHILS # (AUTO) 0.2 10^3/uL (0.0-0.6); ABSOLUTE LYMPHOCYTES (AUTO) 1.2 10^3/uL (0.5-4.7); ABSOLUTE MONOCYTES (AUTO) 0.4 10^3/uL (0.1-1.4); BASOPHILS % (AUTO) 0.8 % (0-2); EOSINOPHILS % (AUTO) 4.3 % (0-6); HEMATOCRIT 41.9 % (37.9-51.0); HEMOGLOBIN 15.1 g/dL (13.5-17.0); LYMPHOCYTES % (AUTO) 25.4 % (13-45); MEAN CORPUSCULAR VOLUME 89 fl (80-97); MONOCYTES % (AUTO) 7.4 % (3-13); RED CELL DISTRIBUTION WIDTH 14.9 % (11.5-14.0); SEGMENTED NEUTROPHILS % (AUTO) 62.1 % (42-78); TOTAL CELLS COUNTED % (AUTO) 100 %; WHITE BLOOD COUNT 4.9 10^3/uL (4.0-10.5)
[2020-09-17 12:45] LABS: INTERNATIONAL RATION (INR) 1.24; PROTHROMBIN TIME 15.8 SEC (11.4-15.4)
[2020-09-17 12:46] LABS: PARTIAL THROMBOPLASTIN TIME 38.2 SEC (23.5-35.8)
[2020-09-17 12:48] LABS: BLOOD UREA NITROGEN 10 mg/dL (7-20)
[2020-09-17 12:52] LABS: PLATELET COUNT 85 10^3/uL (150-450)
[2020-09-17] MEDS ORDERED: MIDAZOLAM 2 MG/2 ML INJ ONE (13:20)
[2020-09-17] MEDS ORDERED: FENTANYL CITRATE INJ/PF 100 MCG/2 ML AMPUL ONE (13:21)
--- NOTE | 2020-09-17 15:07 | RADIOLOGY REPORT (SQ) ---
EXAM DESCRIPTION: U/S BIOPSY LIVER IMAGES COMPLETED DATE/TIME: 09/17/2020 2:24 pm REASON FOR STUDY: LIVER MASS COMPARISON None. LIMITATIONS: None. PROCEDURE: The procedure, risks, benefits, and alternatives were discussed with the patient in the p reprocedural area, and all questions were answered. Informed consent was obtained verbally and in wri ting. The patient was then brought to the ultrasound suite, positioned supine on a gurney, and a time-out w as performed. After that, selected grayscale and color Doppler images of the hypoechoic mass in the right hepatic lobe were obtained. Based on review of the images an appropriate access site was select ed on the skin. The area around the selected access site was then prepped and draped with 2% chlorhexidine utilizing standard sterile technique. After that, the access site was infiltrated with 1% lidocaine and a skin incision was made with a #11 blade. A 17 gauge coaxial needle was then advanced through the skin inc ision and into the mass utilizing sonographic guidance. After that, the inner stylet of the coaxial n eedle was removed and 4 18 gauge core samples were obtained of the mass - the samples were collected and submitted to cytopathology in formalin. The coaxial needle was then removed and selected grayscale and color Doppler images of the mass were repeated and reviewed ; the images demonstrated no acute biopsy-related complication. The patient tolerated the procedure well with local anesthesia. At the end of the procedure the patient's condition was unchanged from the preprocedural baseline. IV conscious sedation was administered at the direction of the performing physician by a larry cruz. 1 milligrams of Versed and 100 micrograms of fentanyl. Physiologic monitoring was provided befo re, during, and after sedation. The total sedation time was 45 minutes. At the end of the procedure the patient's condition was unchanged from the preprocedural baseline. Documentation of [id number] time the performing proceduralist spent monitoring the patient: 30 li david. IMPRESSION: Successful ultrasound-guided biopsy of the hypoechoic mass in the right hepatic lobe. COMMENT: Patient medication list reviewed: Yes- Quality ID# [id number]:Eligible professional attests to doc umenting in the medical record they obtained, updated, or reviewed the patient's current medications. TECHNICAL DOCUMENTATION: JOB ID: [id number] [employer]- All Rights Reserved Reading location - IP/workstation name: [email or web address]
[2020-09-17 16:19] VITALS: BP 127/64
== END 2020-09-17 16:15 | disposition home or self-care (01) ==
LOC: RAD 11:01
PROVIDERS: ATTEND Internal Medicine
DX: D13.4 Benign neoplasm of liver (principal); K21.9 Gastro-esophageal reflux disease without esophagitis; K70.31 Alcoholic cirrhosis of liver with ascites; I85.00 Esophageal varices without bleeding; I10 Essential (primary) hypertension; Z79.899 Other long term (current) drug therapy; Z87.891 Personal history of nicotine dependence; K57.30 Diverticulosis of large intestine without perforation or abscess without bleeding; K42.9 Umbilical hernia without obstruction or gangrene; B18.2 Chronic viral hepatitis C
CPT/HCPCS: 36415; 84520; 82565; 85025; 85610; 85730; 88305 ×2; 47000; J2250; J3010